=== PATIENT | female | born 1940 | race Caucasian/White ===

== ENCOUNTER → 2017-02-06 | Outpatient (CLI) | payer OTHER ==
[~2017-02-06] MED LIST: ALBUAER INH; ALBUAER2 INH; ARTISOL8 OP; BECL0.072 INH; CHOL100010 PO; CYAN10005 PO; LEVO50TA6 PO; OMEP40CA PO; QVRINH80 INH; SERT1TAB71 PO; SERT50TA PO; SIMV10TA2 PO; SIMV20TA2 PO; VITAMIN B12 PO; VITAMIN D PO
--- NOTE | 2017-02-06 14:29 | DIAGNOSTIC IMAGING REPORT ---
CHEST 2 VIEWS ROUTINE CLINICAL HISTORY: R05 [id number] dyspnea COMPARISON STUDY: 08/18/2015 FINDINGS: The bones soft tissues and hemidiaphragms are normal. The cardiomediastinal silhouette is normal. The lungs are clear. The pulmonary vasculature is normal. IMPRESSION: Negative chest. Electronically signed by: Kunal Tay M.D. 02/06/2017 2:27 PM Dictated Date/Time: 02/06/2017 2:27 PM
[2017-02-06 16:56] LABS: BASO % 0.4 %; BASO ABS # 0.04 K/uL (0-0.2); COMPLETE YES; EOS % 1.9 %; HEMATOCRIT 43.1 % (37-47); IG% 1.2 %; LYMPH ABS # 2.78 K/uL (1.2-3.4); MEAN CELL VOLUME 91.3 fL (80-100); MEAN CORPUSCULAR HEMOGLOBIN 31.6 pg (25-34); MEAN CORPUSCULAR HGB CONC 34.6 g/dl (32-36); MEAN PLATELET VOLUME 10.8 fL (7.4-10.4); MONO % 7.5 %; PLATELET COUNT 188 K/uL (130-400); RED BLOOD COUNT 4.72 M/uL (4.2-5.4); WHITE BLOOD COUNT 9.93 K/uL (4.8-10.8)
[2017-02-06 17:14] LABS: ALT/SGPT 26 U/L (12-78); BLOOD UREA NITROGEN 13 mg/dl (7-18); BUN/CREATININE RATIO 16.3 (10-20); CALCIUM 8.6 mg/dl (8.5-10.1); CARBON DIOXIDE 29 mmol/L (21-32); CHLORIDE 105 mmol/L (98-107); GLUCOSE 86 mg/dl (70-99); SODIUM 139 mmol/L (136-145)
[2017-02-06 17:16] LABS: ALB/GLOB RATIO 1.2 (0.9-2); ALKALINE PHOSPHATASE 90 U/L (45-117); AST/SGOT 20 U/L (15-37)
== END | disposition home or self-care (01) ==
LOC: C.RADBC 14:02
PROVIDERS: ATTEND Internal Medicine
DX: R05 Cough (principal); E78.5 Hyperlipidemia, unspecified

== ENCOUNTER → 2017-07-21 | Outpatient (CLI) | payer OTHER | END | disposition home or self-care (01) | LOC: C.LAB 12:41 | PROVIDERS: ATTEND Family Medicine | DX: R53.81 Other malaise (principal); R53.83 Other fatigue ==

== ENCOUNTER → 2017-08-07 | Outpatient (CLI) | payer OTHER ==
[~2017-08-07] MED LIST changes: -ALBUAER INH; -QVRINH80 INH; -SERT50TA PO; -SIMV20TA2 PO; -VITAMIN B12 PO; -VITAMIN D PO
[2017-08-07 17:05] LABS: ALT/SGPT 28 U/L (12-78); AST/SGOT 16 U/L (15-37); BLOOD UREA NITROGEN 16 mg/dl (7-18); BUN/CREATININE RATIO 20.6 (10-20); CALCIUM 8.8 mg/dl (8.5-10.1); CARBON DIOXIDE 27 mmol/L (21-32); CHLORIDE 109 mmol/L (98-107); CREATININE 0.79 mg/dl (0.60-1.20); GLUCOSE 91 mg/dl (70-99); POTASSIUM 4.5 mmol/L (3.5-5.1); SODIUM 141 mmol/L (136-145)
[2017-08-07 17:16] LABS: ALB/GLOB RATIO 1.2 (0.9-2); ALKALINE PHOSPHATASE 78 U/L (45-117); CHOLESTEROL 223 mg/dl (0-200); CHOLESTEROL/HDL RATIO 3.2; HDL CHOLESTEROL 70 mg/dl; LDL CHOLESTEROL CALCULATED 122 mg/dl; TRIGLYCERIDES 155 mg/dl (0-150); VERY LOW DENSITY LIPOPROT CALC 31 mg/dl
== END | disposition home or self-care (01) ==
LOC: C.LABBC 14:28
PROVIDERS: ATTEND Internal Medicine
DX: G47.33 Obstructive sleep apnea (adult) (pediatric) (principal)

== ENCOUNTER → 2017-10-07 | Outpatient (CLI) | payer OTHER ==
[~2017-10-07] MED LIST changes: +ALBUAER INH; -ALBUAER2 INH; -ARTISOL8 OP; -BECL0.072 INH; -CHOL100010 PO; -CYAN10005 PO; -OMEP40CA PO; +QVRINH80 INH; -SERT1TAB71 PO; +SERT50TA PO; -SIMV10TA2 PO; +SIMV20TA2 PO; +VITAMIN B12 PO; +VITAMIN D PO
--- NOTE | 2017-10-07 10:52 | DIAGNOSTIC IMAGING REPORT ---
ULTRASOUND BILATERAL LOWER EXTREMITY VENOUS CLINICAL HISTORY: Varicose veins. COMPARISON STUDY: Left lower extremity venous ultrasound dated 03/10/2016. TECHNIQUE: Real-time, grayscale, and color Doppler sonography of the deep veins of the right and left lower extremity was performed from the inguinal crease to the calf. Compression and augmentation were utilized. FINDINGS: There is no sonographic evidence of deep venous thrombosis identified in the right or left lower extremity. The common femoral, superficial femoral, and popliteal veins are patent and normally compressible bilaterally. The greater saphenous vein and the profunda femoris vein at the junction with the common femoral vein are clear in both legs. The visualized calf veins are patent bilaterally. Reflux is noted in the right greater saphenous vein. No reflux was seen in the left lower extremity. No abnormality is seen in the lateral right ankle at the site of interest. IMPRESSION: There is no sonographic evidence of deep venous thrombosis identified in the right or left lower extremity. Electronically signed by: Yobany Cottrell M.D. 10/07/2017 10:51 AM Dictated Date/Time: 10/07/2017 10:50 AM
== END | disposition home or self-care (01) ==
LOC: C.ULTR 09:53
PROVIDERS: ATTEND Nurse Practitioner Adult Health
DX: I83.90 Asymptomatic varicose veins of unspecified lower extremity (principal)

== ENCOUNTER → 2017-12-01 | Outpatient (CLI) | payer OTHER | END | disposition home or self-care (01) | LOC: C.LABBC 14:49 | PROVIDERS: ATTEND Internal Medicine | DX: R39.9 Unspecified symptoms and signs involving the genitourinary system (principal) ==

== ENCOUNTER → 2018-01-01 | Day surgery (SDC) | payer OTHER ==
[2017-12-19 08:50] VITALS: BMI 34.0
[~2018-01-01] VITALS: Ht 152.4 cm; Wt 79.5 kg
[~2018-01-01] MED LIST changes: +ASPCH81X PO; +LIDOCAINE HCL 2% 2 ML VIAL (20MG/ML) ONE; +PHENYLEPHRINE HCL INJ 10 MG/ML VIAL ONE; +PROPOFOL IV EMULSION 10 MG/ML 20 ML VIAL IV ONE; +SODIUM CHLORIDE 0.9% 500ML 500 ML IV ONE
[2018-01-01 13:10] VITALS: TEMP 36.5
[2018-01-01 13:11] VITALS: Ht 152.4 cm; Wt 79.5 kg
--- NOTE | 2018-01-01 13:15 | Endo History and Physical ---
History & Physical Date of Service: Jan 01, 2018. Chief Complaint: Change in bowel habits Referring Physician: Dr. Mulugeta Cruz History of Present Illness 77 yo CF who presents for colonoscopy secondary to change in bowel habits. Past Medical History Arthritis, Asthma, Anxiety, Reflux, High Cholesterol, COPD, Thyroid Disease, Depression Past Surgical History Hx Cardiac Surgery: No Hx Internal Defibrillator: No Hx Pacemaker: No Hx Abdominal Surgery: Yes () Hx Post-Op Nausea and Vomiting: No Hx Cancer Surgery: No Hx Thoracic Surgery: No Hx Orthopedic: Yes (LUMBAR LAMINECTOMY) Hx Urinary Tract Surgery: No Family History Polyp Social History Smoking Status: Former Smoker Hx Substance Use: No Hx Alcohol Use: No Allergies Coded Allergies: Sulfa Drugs (Verified Allergy, Severe, HIVES, SWELLING, 08/18/17) Atorvastatin (Verified Allergy, Intermediate, REDNESS,ITCHY RASH, 08/18/17 ) Azithromycin (Verified Allergy, Intermediate, REDNESS, HEART RACING, 08/18) BEE STING (Verified Allergy, Intermediate, WHEEZING,ITCHY EYES, REDNESS, 08/18/17) Doxycycline (Verified Allergy, Intermediate, REDMITCHY HIVES, THROAT SWELLS, 08/18/17) Niacin (Verified Allergy, Intermediate, UNKNOWN TO PT-REDNESS?, 08/18/17) Terfenadine (Verified Allergy, Intermediate, HEART PALPITATIONS, 08/18/17) Aromatic Oils (Verified Allergy, Unknown, ANY MAKE-UP,PERFUMES, COSMETICS- ITCHY EYES,WHEEZING, 08/18/17) ANY SCENTED PRODUCTS INCL FIELD ARTILLERY OPERATIONS MAN,WILCOX POLLEN (Verified Allergy, Unknown, POLLEN,TREES, DUST MITES-ITCHY EYES WHEEZING, 08/18/17) Propofol (Verified Allergy, Unknown, LOW BP,"WENT OUT"-BLACKED OUT, ) Current Medications Reported Home Medications Medications Dose Route/Sig Max Daily Dose Days Date Category Aspirin Chewable (Aspirin) 81 Mg Chew 81 Mg PO HS 12/19/17 Reported Proventil Hfa (Albuterol Sulfate) 108 Mcg/Act Aer 2 Puff INH Q4H PRN 08/18/17 Reported Qvar (Beclomethasone Dip) 80 Mcg/Act Aer 2 Puff INH BID 08/18/17 Reported Zocor (Simvastatin) 20 Mg Tab 20 Mg PO QPM 08/18/17 Reported Levothyroxine Sodium 50 Mcg Tab 1 Tab PO QAM 90 08/18/17 Reported [Vitamin B12] 1 Tab PO QAM 08/18/17 Reported [Vitamin D] 1 Tab PO QAM 08/18/17 Reported Zoloft (Sertraline HCl) 50 Mg Tab 50 Mg PO HS 08/18/17 Reported Vital Signs Weight (Kilograms): 79.55 Height (Feet): 5 Height (Inches): 0 Date Time Temp Pulse Resp B/P (MAP) Pulse Ox O2 Delivery O2 Flow Rate FiO2 01/01/18 13:10 36.5 71 18 151/77 (101) 96 Room Air Physical Exam General Appearance: WD/WN, no apparent distress Respiratory/Chest: Auscultation: breath sounds normal Cardiovascular: Heart Auscultation: RRR Abdomen: Bowel Sounds: normal Inspection & Palpation: soft, non-distended, no tenderness, guarding & rebound Assessment and Plan Assessment: 77 yo CF who presents for colonoscopy secondary to change in bowel habits. Plan: Proceed with colonoscopy.
--- NOTE | 2018-01-01 13:51 | Discharge Instructions ---
Endoscopy Patient Instructions Date / Procedure(s) Performed Jan 01, 2018. Colonoscopy Allergy Information Coded Allergies: Sulfa Drugs (Verified Allergy, Severe, HIVES, SWELLING, 08/18/17) Atorvastatin (Verified Allergy, Intermediate, REDNESS,ITCHY RASH, 08/18/17 ) Azithromycin (Verified Allergy, Intermediate, REDNESS, HEART RACING, 08/18) BEE STING (Verified Allergy, Intermediate, WHEEZING,ITCHY EYES, REDNESS, 08/18/17) Doxycycline (Verified Allergy, Intermediate, REDMITCHY HIVES, THROAT SWELLS, 08/18/17) Niacin (Verified Allergy, Intermediate, UNKNOWN TO PT-REDNESS?, 08/18/17) Terfenadine (Verified Allergy, Intermediate, HEART PALPITATIONS, 08/18/17) Aromatic Oils (Verified Allergy, Unknown, ANY MAKE-UP,PERFUMES, COSMETICS- ITCHY EYES,WHEEZING, 08/18/17) ANY SCENTED PRODUCTS INCL ED TEACHER,WILCOX POLLEN (Verified Allergy, Unknown, POLLEN,TREES, DUST MITES-ITCHY EYES WHEEZING, 08/18/17) Propofol (Verified Allergy, Unknown, LOW BP,"WENT OUT"-BLACKED OUT, ) Discharge Date / Findings Jan 01, 2018. Diverticulosis Internal hemorrhoids Medication Instructions Stopped Medication(s): ASPIRIN LAST DOSE 12/30/17 OK to resume all medications today as prescribed Reported Home Medications Medications Dose Route/Sig Max Daily Dose Days Date Category Aspirin Chewable (Aspirin) 81 Mg Chew 81 Mg PO HS 12/19/17 Reported Proventil Hfa (Albuterol Sulfate) 108 Mcg/Act Aer 2 Puff INH Q4H PRN 08/18/17 Reported Qvar (Beclomethasone Dip) 80 Mcg/Act Aer 2 Puff INH BID 08/18/17 Reported Zocor (Simvastatin) 20 Mg Tab 20 Mg PO QPM 08/18/17 Reported Levothyroxine Sodium 50 Mcg Tab 1 Tab PO QAM 90 08/18/17 Reported [Vitamin B12] 1 Tab PO QAM 08/18/17 Reported [Vitamin D] 1 Tab PO QAM 08/18/17 Reported Zoloft (Sertraline HCl) 50 Mg Tab 50 Mg PO HS 08/18/17 Reported Provider Instructions Activity Restrictions - No exercising or heavy lifting for 24 hours. - Do not drink alcohol the day of the procedure. - Do not drive a car or operate machinery until the day after the procedure. - Do not make any important decisions or sign important papers in 24 hours after the procedure. Following Day: - Return to full activity which may include returning to work/school. Diet Start your diet with liquids and light foods (jello, soup, juice, toast). Then eat your usual diet if not nauseated. Treatment For Common After Affects For mild abdominal pain, bloating, or excessive gas: - Rest - Eat lightly - Lie on right side Follow-Up Information Follow-up with DR MOHINDER PEDROZA as scheduled Anesthesia Information What You Should Know You have had a procedure that required some medicine to reduce anxiety and discomfort. This treatment is called moderate sedation. After receiving the treatment, you may be sleepy, but you will be able to breathe on your own. The effects of the treatment may last for several hours. Follow these instructions along with Activity/Diet recommendations noted above: * Do NOT do anything where dizziness or clumsiness would be dangerous. * Rest quietly at home today, then you can be up and about tomorrow. * Have a responsible person stay with you the rest of today. * You may have had an I.V. today. If so, you may take the dressing off later today. Recommendations Call your doctor if: * Trouble breathing * Continuous vomiting for more than 24 hours * Temperature above 101 degrees * Severe abdominal pain or bloating * Pain not relieved by pain medicine ordered * There is increased drainage or redness from any incision * A large amount of rectal bleeding greater than 2-3 tablespoons. (If you had a polyp/s removed or have hemorrhoids, a small amount of blood - from the rectum is to be expected.) * You have any unanswered questions or concerns. IN THE EVENT OF A SERIOUS EMERGENCY, GO TO THE NEAREST EMERGENCY ROOM Your discharge instructions were prepared by provider Jose Yap. Patient Instructions Signature Page Olivia Mckeon Patient (or Guardian) Signature/Date: I have read and understand the instructions given to me by my caregivers. Caregiver/RN/Doctor Signature/Date: The above-named patient and/or guardian has received patient instructions on this date. + Original Patient Signature Page (only) stays with chart. Please make copy for patient.
[2018-01-01 14:11] VITALS: BP 132/77; PULSE 59; O2SAT 95
--- NOTE | 2018-01-01 14:17 | GI REPORT ---
Procedure Date: 01/01/2018 1:09 PM Procedure: Colonoscopy Indications: Screening for colorectal malignant neoplasm Medicines: Monitored Anesthesia Care Complications: No immediate complications. Estimated Blood Loss: Estimated blood loss: none. Procedure: Pre-Anesthesia Assessment: - Prior to the procedure, a History and Physical was performed, and patient medications and allergies were reviewed. The patient's tolerance of previous anesthesia was also reviewed. The risks and benefits of the procedure and the sedation options and risks were discussed with the patient. All questions were answered, and informed consent was obtained. Prior Anticoagulants: The patient has taken aspirin, last dose was 2 days prior to procedure. ASA Grade Assessment: III - A patient with severe systemic disease. After reviewing the risks and benefits, the patient was deemed in satisfactory condition to undergo the procedure. After I obtained informed consent, the scope was passed under direct vision. Throughout the procedure, the patient's blood pressure, pulse, and oxygen saturations were monitored continuously. The On-site loaner was introduced through the anus and advanced to the terminal ileum. The colonoscopy was performed without difficulty. The patient tolerated the procedure well. The quality of the bowel preparation was good. The terminal ileum, ileocecal valve, appendiceal orifice, and rectum were photographed. Findings: The perianal and digital rectal examinations were normal. Multiple small-mouthed diverticula were found in the sigmoid colon. Non-bleeding internal hemorrhoids were found during retroflexion. The hemorrhoids were small. Impression: - Diverticulosis in the sigmoid colon. - Non-bleeding internal hemorrhoids. - No specimens collected. Recommendation: - Resume previous diet. - Continue present medications. - No repeat colonoscopy due to age and the absence of advanced adenomas. - Return to primary care physician as previously scheduled. Jose Yap DO 01/01/2018 2:17:31 PM This report has been signed electronically. Note Initiated On: 01/01/2018 1:09 PM I attest to the content of the Intraoperative Record and orders documented therein, exceptions below
--- NOTE | 2018-01-01 14:21 | Anesthesiology Progress Note ---
Anesthesia Post Op Note Date & Time Jan 01, 2018 at 14:21 Vital Signs Pain Intensity: 0 Vital Signs Past 12 Hours Date Time Temp Pulse Resp B/P (MAP) Pulse Ox O2 Delivery O2 Flow Rate FiO2 01/01/18 14:11 59 18 132/77 (95) 95 Room Air 01/01/18 14:02 72 18 115/67 (83) 96 Room Air 01/01/18 13:54 61 18 135/67 (89) 95 Room Air 01/01/18 13:49 65 18 105/45 (65) 96 Room Air 01/01/18 13:10 36.5 71 18 151/77 (101) 96 Room Air Notes Mental Status: alert / awake / arousable, participated in evaluation Pt Amnestic to Procedure: Yes Nausea / Vomiting: adequately controlled Pain: adequately controlled Airway Patency, RR, SpO2: stable & adequate BP & HR: stable & adequate Hydration State: stable & adequate Anesthetic Complications: no major complications apparent
== END | disposition home or self-care (01) ==
LOC: C.GI 12:47
PROVIDERS: ATTEND Internal Medicine
DX: Z12.11 Encounter for screening for malignant neoplasm of colon (principal); K57.30 Diverticulosis of large intestine without perforation or abscess without bleeding; K64.8 Other hemorrhoids; J44.9 Chronic obstructive pulmonary disease, unspecified; J45.909 Unspecified asthma, uncomplicated; G47.33 Obstructive sleep apnea (adult) (pediatric); E78.00 Pure hypercholesterolemia, unspecified; F32.9 Major depressive disorder, single episode, unspecified; Z98.890 Other specified postprocedural states; Z68.34 Body mass index [BMI] 34.0-34.9, adult; E66.9 Obesity, unspecified; Z88.2 Allergy status to sulfonamides; Z88.1 Allergy status to other antibiotic agents; Z88.8 Allergy status to other drugs, medicaments and biological substances; Z91.030 Bee allergy status; Z98.41 Cataract extraction status, right eye; Z98.42 Cataract extraction status, left eye; Z87.891 Personal history of nicotine dependence; Z83.71 Family history of colonic polyps

== ENCOUNTER → 2018-02-12 | Outpatient (CLI) | payer OTHER ==
[~2018-02-12] MED LIST changes: -LIDOCAINE HCL 2% 2 ML VIAL (20MG/ML) ONE; -PHENYLEPHRINE HCL INJ 10 MG/ML VIAL ONE; -PROPOFOL IV EMULSION 10 MG/ML 20 ML VIAL IV ONE; -SODIUM CHLORIDE 0.9% 500ML 500 ML IV ONE
[2018-02-12 09:40] LABS: BASO % 0.5 %; BASO ABS # 0.04 K/uL (0-0.2); EOS % 3.2 %; EOS ABS # 0.25 K/uL (0-0.5); HEMATOCRIT 43.2 % (37-47); HEMOGLOBIN 14.9 g/dL (12.0-16.0); IG# 0.06 K/uL (0.00-0.02); LYMPH % 37.6 %; LYMPH ABS # 2.94 K/uL (1.2-3.4); MEAN CELL VOLUME 94.5 fL (80-100); MEAN CORPUSCULAR HEMOGLOBIN 32.6 pg (25-34); MEAN CORPUSCULAR HGB CONC 34.5 g/dl (32-36); MEAN PLATELET VOLUME 10.1 fL (7.4-10.4); MONO % 7.4 %; MONO ABS # 0.58 K/uL (0.11-0.59); NEUT % 50.5 %; NEUT ABS # 3.95 K/uL (1.4-6.5); PLATELET COUNT 175 K/uL (130-400); RED CELL DISTRIBUTION WIDTH CV 13.3 % (11.5-14.5); WHITE BLOOD COUNT 7.82 K/uL (4.8-10.8)
[2018-02-12 10:26] LABS: ALBUMIN 3.7 gm/dl (3.4-5.0); ALT/SGPT 29 U/L (12-78); AST/SGOT 19 U/L (15-37); BLOOD UREA NITROGEN 20 mg/dl (7-18); CALCIUM 8.9 mg/dl (8.5-10.1); CARBON DIOXIDE 29 mmol/L (21-32); CREATININE 1.13 mg/dl (0.60-1.20); GLUCOSE 101 mg/dl (70-99); POTASSIUM 4.5 mmol/L (3.5-5.1); SODIUM 140 mmol/L (136-145)
[2018-02-12 10:37] LABS: ALKALINE PHOSPHATASE 72 U/L (45-117); TOTAL PROTEIN 6.8 gm/dl (6.4-8.2)
== END | disposition home or self-care (01) ==
LOC: C.LAB 08:26
PROVIDERS: ATTEND Internal Medicine
DX: G47.33 Obstructive sleep apnea (adult) (pediatric) (principal)

== ENCOUNTER → 2018-02-12 | Outpatient (CLI) | payer OTHER | END | disposition home or self-care (01) | LOC: C.LABBC 14:52 | PROVIDERS: ATTEND Internal Medicine | DX: R51 Headache (principal) ==

== ENCOUNTER 2022-02-11 13:33 | Inpatient (IN) ==
[2022-02-11] MEDS ORDERED: ONDANSETRON INJ 2 MG/ML 2 ML VIAL ONE (13:39)
[2022-02-11] MEDS ORDERED: SODIUM CHLORIDE 0.9% 1000ML 1,000 ML IV STA (13:44)
[2022-02-11] MEDS ORDERED: ONDANSETRON INJ 2 MG/ML 2 ML VIAL IV STA (13:44)
[2022-02-11] MEDS ORDERED: LOPERAMIDE LIQUID 120 ML BOTTLE PO STA (13:44)
--- NOTE | 2022-02-11 13:48 | Emergency Department Note ---
History of Present Illness General Chief complaint: Vomiting Stated complaint: VOMITING Time Seen by Provider: 02/11/22 13:34 History of Present Illness Maximum Pain Intensity: [age]-year-old female presents to the ED with a chief complaint of nausea, vomiting and diarrhea that started 3 days ago. 3 days ago she had diarrhea. She then developed nausea vomiting this morning. She states the last episode of each was this morning. She reports some epigastric discomfort prior to vomiting but otherwise denies any abdominal pains. She has had decreased p.o. intake over the past couple of days. No other complaints at this time. She has not had a fever. No respiratory complaints. No urinary symptoms Home Medications Medication Instructions Recorded Confirmed Type albuterol sulfate 90 mcg/actuation 2 puffs INHALATION Q4H PRN #1 gm 06/08/19 02/11/22 History aerosol inhaler cyanocobalamin (vitamin B-12) 1,000 mcg PO DAILY #90 tab 06/08/19 02/11/22 History 1,000 mcg tablet simvastatin 20 mg tablet 20 mg PO DAILY #90 tab 01/31/20 02/11/22 Rx beclomethasone dipropionate 80 2 inh INHALATION BID 09/02/20 02/11/22 History mcg/actuation HFA breath activated aerosol (Qvar RediHaler) cholecalciferol (vitamin D3) 25 25 mcg PO DAILY 09/02/20 02/11/22 History mcg (1,000 unit) chewable tablet (Vitamin D3) docusate sodium 100 mg capsule 100 mg PO BID 09/02/20 02/11/22 History (Colace) glycerin (adult) 1 supp [place] DAILY PRN 09/02/20 02/11/22 History levothyroxine 75 mcg tablet 75 mcg PO DAILY 09/02/20 02/11/22 History omeprazole 20 mg capsule,delayed 40 mg PO HS 09/02/20 02/11/22 History release psyllium 1 packet PO DAILY 09/02/20 02/11/22 History sertraline 50 mg tablet 50 mg PO BID 09/02/20 02/11/22 History atenolol 25 mg tablet 25 mg PO HS 06/08/21 02/11/22 History sodium sul 1.479 gram-potas ch See Rx Instructions .ROUTE 06/15/21 02/11/22 Rx 0.188 gram-magnes sul 0.225 gram .COMPLEX #24 tab tablet (Sutab) ondansetron 4 mg disintegrating 4 mg PO Q6 PRN #14 tab 02/11/22 Rx tablet Allergies Allergy/AdvReac Type Severity Reaction Status Date / Time Sulfa (Sulfonamide Allergy Severe HIVES, Verified 02/11/22 15:09 Antibiotics) SWELLING atorvastatin Allergy Intermediate REDNESS,ITCHY Verified 02/11/22 15:09 RASH azithromycin Allergy Intermediate Redness of Verified 02/11/22 15:09 Skin, heart racing bee venom protein (honey bee) Allergy Intermediate WHEEZING,ITCHY Verified 02/11/22 15:09 EYES, REDNESS doxycycline Allergy Intermediate REDMITCHY Verified 02/11/22 15:09 HIVES, THROAT SWELLS niacin Allergy Intermediate UNKNOWN TO Verified 02/11/22 15:09 PT-REDNESS? pollen extracts Allergy Intermediate POLLEN,TREES, Verified 02/11/22 15:09 DUST MITES-ITCHY EYES WHEEZING propofol Allergy Intermediate LOW Verified 02/11/22 15:09 BP,"WENT OUT"-BLACKED OUT terfenadine Allergy Intermediate HEART Verified 02/11/22 15:09 PALPITATIONS lisinopril Allergy Unknown PT STATES Verified 02/11/22 15:09 "ALLERGIC" ranitidine AdvReac Intermediate headache Verified 02/11/22 15:09 sulfamethoxazole AdvReac Intermediate GI UPSET Verified 02/11/22 15:09 [From Bactrim] trimethoprim [From Bactrim] AdvReac Intermediate GI UPSET Verified 02/11/22 15:09 Aromatic Oils Allergy Intermediate ANY Uncoded 02/11/22 15:09 MAKE-UP,PERFUMES, COSMETICS-ITCHY EYES,WHEEZING Past Med/Surg History Medical History Anemia Chest pain Closed head injury Fall GERD (gastroesophageal reflux disease) Hypothyroidism IBS (irritable bowel syndrome) Left wrist sprain Lumbar stenosis with neurogenic claudication Rectal bleeding Surgical History History of eye surgery History of oral surgery Family History (Updated 07/13/21 @ 14:35 by Macie Brantley) Unknown Gastric cancer Schizophrenia Sister Crohn's disease Brother Schizophrenia Lung cancer Son Myocardial infarction Daughter Breast cancer Mother Myocardial infarction Cancer Father Lung cancer Cancer Grandmother (Maternal) Heart trouble Aunt Convulsion Social History Smoking Status: Never smoker Preferred Language: Turkmen Feels Safe at Home: Yes Review of Systems A total of 10 systems reviewed and were otherwise negative Physical Exam Vital Signs Vital Signs - 24 hr 02/11/22 13:39 02/11/22 13:51 02/11/22 14:50 Temperature 37.6 C H Temperature Source Oral Pulse Rate 74 Pulse Rate [Apical] Respiratory Rate 15 Respiratory Effort / Characteristics Blood Pressure 166/93 H Blood Pressure [Left Arm] 162/81 H Blood Pressure Mean 117 Blood Pressure Mean [Left Arm] 108 Pulse Oximetry 92 92 Oxygen Delivery Method Room Air Room Air Sepsis Recent Fever Within 48 Hours No Sepsis New/Unexplained Change in Mental Status N/A Sepsis Action Taken by Nursing No Action Required 02/11/22 15:11 Temperature Temperature Source Pulse Rate Pulse Rate [Apical] 78 Respiratory Rate 16 Respiratory Effort / Characteristics Non-Labored Blood Pressure Blood Pressure [Left Arm] 149/68 H Blood Pressure Mean Blood Pressure Mean [Left Arm] 95 Pulse Oximetry 93 Oxygen Delivery Method Room Air Sepsis Recent Fever Within 48 Hours Sepsis New/Unexplained Change in Mental Status Sepsis Action Taken by Nursing CONSTITUTIONAL/VITAL SIGNS: Reviewed / noted above. GENERAL: Non-toxic in appearance. INTEGUMENTARY: Warm, dry, and [place]. HEAD: Normocephalic. EYES: without scleral icterus or trauma. ENT/OROPHARYNX: clear and moist. LYMPHADENOPATHY/NECK: Is supple without lymphadenopathy or meningismus. RESPIRATORY: Clear to auscultation bilaterally. No increased work of breathing. CARDIOVASCULAR: Regular rate and rhythm. GI/ABDOMEN: Soft and nontender. No organomegaly or pulsatile mass. EXTREMITIES: Warm and well perfused. BACK: No CVA tenderness. NEUROLOGICAL: Intact without focal deficits. PSYCHIATRIC: normal affect. MUSCULOSKELETAL: Normally developed with good muscle tone. TRIAGE NURSING DOCUMENTATION REVIEWED. Course Administered Medications Discontinued Medications Sodium Chloride (Nss 1000ml) 1,000 mls @ 999 mls/hr IV .Q1H1M STA Stop: 02/11/22 14:44 Last Infusion: 02/11/22 14:51 Dose: 0 mls/hr Documented by: [id number] Admin: 02/11/22 13:50 Dose: 999 mls/hr Documented by: [id number] Loperamide HCl (Loperamide Liquid 120 Ml Bottle) 2 mg PO NOW STA Stop: 02/11/22 13:45 Last Admin: 02/11/22 13:57 Dose: 2 mg Documented by: [id number] Ondansetron HCl (Ondansetron Inj 2 Mg/Ml 2 Ml Vial) Confirm Administered Dose 4 mg .ROUTE .STK-MED ONE Stop: 02/11/22 13:40 Last Admin: 02/11/22 13:42 Dose: 4 mg Documented by: [id number] Ondansetron HCl (Ondansetron Inj 2 Mg/Ml 2 Ml Vial) 4 mg IV NOW STA Stop: 02/11/22 13:45 Last Admin: 02/11/22 13:49 Dose: Not Given Documented by: [id number] Medical Decision Making Differential Diagnosis Gastroenteritis, food borne illness, infections, appendicitis, diverticulitis, inflammatory bowel disease, obstruction, GI bleed, biliary pathology, volvulus, as well as other pathologies. Medical Records Attestation: I reviewed the patient's medical records. Home Medications Current Medication List: was personally reviewed by me Laboratory Data Attestation: I reviewed the patient's lab results. Result diagrams: 02/11/22 13:45 02/11/22 13:45 Lab Results 02/11/22 02/11/22 Range/Units 13:45 13:45 WBC 9.13 (4.8-10.8) K/uL RBC 4.71 (4.2-5.4) M/uL Hgb 15.4 (12.0-16.0) g/dL Hct 44.0 (37-47) % MCV 93.4 (80-100) fL MCH 32.7 (25-34) pg MCHC 35.0 (32-36) g/dL RDW Std Deviation 43.3 (36.4-46.3) fL RDW Coeff of Saroj 12.7 (11.5-14.5) % Plt Count 163 (130-400) K/uL MPV 10.6 H (7.4-10.4) fL Immature Gran % (Auto) 0.4 % Neut % (Auto) 89.0 % Lymph % (Auto) 5.1 % Mcclain % (Auto) 4.6 % Eos % (Auto) 0.8 % Baso % (Auto) 0.1 % Neut # (Auto) 8.12 H (1.4-6.5) K/uL Lymph # (Auto) 0.47 L (1.2-3.4) K/uL Mcclain # (Auto) 0.42 (0.11-0.59) K/uL Eos # (Auto) 0.07 (0-0.5) K/uL Baso # (Auto) 0.01 (0-0.2) K/uL Immature Gran # (Auto) 0.04 H (0.00-0.02) K/uL Sodium 140 (136-145) mmol/L Potassium 3.7 (3.5-5.1) mmol/L Chloride 107 (98-107) mmol/L Carbon Dioxide 23 (21-32) mmol/L Anion Gap 10 (3-11) BUN 18 (6-23) mg/dl Creatinine 0.88 (0.6-1.2) mg/dl Est Cr Clr Drug Dosing 50.5 ml/min Est GFR ( Amer) 71.4 ml/min Est GFR (Non-Af Amer) 61.6 ml/min BUN/Creatinine Ratio 20.5 H (10-20) Glucose 139 H (70-99(Fasting)) mg/dl Calcium 9.2 (8.5-10.1) mg/dl Total Bilirubin 0.9 (0.2-1.0) mg/dl AST 18 (13-39) U/L ALT 17 (7-52) U/L Alkaline Phosphatase 69 (34-104) U/L Total Protein 7.0 (6.0-8.3) gm/dl Albumin 4.3 (3.4-5.0) gm/dl Globulin 2.7 (2.5-4.0) gm/dl Albumin/Globulin Ratio 1.6 (0.9-2) Lipase 32 (11-82) U/L ECG Data Attestation: I personally reviewed and interpreted this ECG as follows: Additional Comments: Lead EKG: Per my interpretation shows a normal sinus rhythm at a rate of 74. No ST elevation. No PVCs. Normal QTC. Chronic T wave inversions are chronic compared to an EKG dated 06/08/2021. MDM Narrative 81-year-old female presents with nausea, vomiting and diarrhea for the past several days. Details listed above. Vital signs are stable. Exam is unremarkable. The patient's CBC and chemistry panel is unremarkable. Lipase was negative. Twelve-lead EKG shows a normal sinus rhythm without acute change. The patient was treated with IV fluids. She was given IV Zofran and p.o. loperamide. She did have an episode of diarrhea here that was watery. The patient was told the results of the test. She states that she feels weak and does not feel comfortable going home. I will speak with the hospitalist about observing her overnight. Impression & Plan Nausea vomiting and diarrhea Discharge Plan Visit Data Chief Complaint: Vomiting Stated Complaint: VOMITING ED Provider: Vern August Discharge Problem: Nausea vomiting and diarrhea Forms Stand Alone Forms: My [facility], Virtual Emergency Department, Important Visit Information Prescriptions Prescriptions: New ondansetron 4 mg tablet,disintegrating 4 mg PO Q6 PRN (Reason: nausea and vomiting) Qty: 14 RF: 0 No Action simvastatin 20 mg tablet 20 mg PO DAILY Qty: 90 RF: 3 albuterol sulfate 90 mcg/actuation HFA aerosol inhaler 2 puffs inhalation Q4H PRN (Reason: cough,sob,wheezing) Qty: 1 RF: 0 cyanocobalamin (vitamin B-12) 1,000 mcg tablet 1,000 mcg PO DAILY Qty: 90 RF: 0 Sutab 1.479-0.188- 0.225 gram tablet See Rx Instructions .Route .COMPLEX Qty: 24 RF: 0 levothyroxine 75 mcg tablet 75 mcg PO DAILY RF: 0 omeprazole 20 mg capsule,delayed release(DR/EC) 40 mg PO HS RF: 0 sertraline 50 mg tablet 50 mg PO BID RF: 0 Metamucil Packet 1 packet PO DAILY RF: 0 docusate sodium [Colace] 100 mg Capsule 100 mg PO BID RF: 0 glycerin (adult) Suppository 1 supp [place] DAILY PRN (Reason: Constipation) RF: 0 cholecalciferol (vitamin D3) [Vitamin D3] 25 mcg (1,000 unit) Tablet,Chewable 25 mcg PO DAILY RF: 0 Qvar RediHaler 80 mcg/actuation HFA aerosol breath activated 2 inh INHALATION BID RF: 0 atenolol 25 mg tablet 25 mg PO HS RF: 0 Referrals Referrals: Alycia Terry, [Primary Care Provider] -
[2022-02-11 14:13] LABS: Basophils # (auto) 0.01 K/uL (0-0.2); Basophils % (auto) 0.1 %; Eosinophils # (auto) 0.07 K/uL (0-0.5); Eosinophils % (auto) 0.8 %; Hemoglobin 15.4 g/dL (12.0-16.0); Immature Granulocytes # (auto) 0.04 K/uL (0.00-0.02); Immature Granulocytes % (auto) 0.4 %; Lymphocytes # (auto) 0.47 K/uL (1.2-3.4); Lymphocytes % (auto) 5.1 %; Mean Corpuscular Hemoglobin 32.7 pg (25-34); Mean Corpuscular Volume 93.4 fL (80-100); Mean Platelet Volume 10.6 fL (7.4-10.4); Monocytes # (auto) 0.42 K/uL (0.11-0.59); Monocytes % (auto) 4.6 %; Neutrophils # (auto) 8.12 K/uL (1.4-6.5); Platelet Count 163 K/uL (130-400); RDW Coefficient of Variation 12.7 % (11.5-14.5); RDW Standard Deviation 43.3 fL (36.4-46.3); Red Blood Count 4.71 M/uL (4.2-5.4); White Blood Count 9.13 K/uL (4.8-10.8)
[2022-02-11 14:19] LABS: Albumin Globulin Ratio 1.6 (0.9-2); Albumin Level 4.3 gm/dl (3.4-5.0); BUN Creatinine Ratio 20.5 (10-20); Bilirubin,Total 0.9 mg/dl (0.2-1.0); Calcium 9.2 mg/dl (8.5-10.1); Creatinine Clr Calc Pharmacy 50.5 ml/min; Est GFR (African American) 71.4 ml/min; Est GFR (Non-African American) 61.6 ml/min; Globulin 2.7 gm/dl (2.5-4.0); Potassium 3.7 mmol/L (3.5-5.1)
--- NOTE | 2022-02-11 16:41 | History & Physical Report ---
Date of Service February 11, 2022 Assessment & Plan (1) Nausea vomiting and diarrhea: Plan: Patient is 81-year-old female with PMH HTN, dyslipidemia, hypothyroidism, depression, anxiety, asthma presented to ER with complaint of watery diarrhea x 3 days with 10 or more episodes daily. Today nausea and vomiting, upper abdominal discomfort relieved after vomiting. Reported chills and feeling hot today. In ER T: 37.8C, other vitals stable. No leukocytosis. No significant electrolyte abnormality. COVID-[address] abdomen pelvis: . No acute intra-abdominal or intrapelvic abnormality. No bowel obstruction or bowel wall thickening. Normal appendix. In ER given 1L NSS, zofran, loperamide N.p.o. for now as vomited in ER after ice chips IVF C. difficile, stool studies pending CBC, BMP in a.m. (2) Generalized weakness: Plan: Reports generalized weakness past 2 days started after diarrhea illness Rehydrate as above PT OT eval (3) HTN (hypertension): Plan: Continue atenolol (4) Hyperlipidemia: Plan: Continue simvastatin (5) Hypothyroidism: Plan: Continue levothyroxine (6) Asthma: Plan: No signs acute exacerbation Continue home inhalers (7) Depression with anxiety: Plan: Continue sertraline DVT Prophylaxis Lovenox SQ DNR/DNI as per discussion with pt Follows with Dr Terry for routine care Pt was seen and care coordinated with Dr Vidal. See addendum Admission and Anticipated Discharge Date Admission Date: I saw and examined the patient at bedside. I reviewed the chart and discussed the case with Otilia LEMON. In summary, this is a 81 year old female who presented to the ED with watery diarrhea for 3 days and nausea vomiting since this morning. Multiple episodes of diarrhea and vomiting. Mild abd pain, no blood. In the ED, afebrile. hemodynamically stable but dry. AAO, chest clear, heart sounds normal, abdomen benign, no edema. Had another diarrhea and vomiting in ED. Labs reviewed. CT A/P with no acute abnormality. Stool studies pending. Likely viral gastroenteritis, will admit for symptomatic management- continue IVF, antiemetics prn, follow up on stool studies. Consider imodium prn if infectious etiology ruled out. Rest per the note above. History of Present Illness Chief Complaint: N/V/D Primary Care Provider: Alycia Terry DO Patient is 81-year-old female with PMH HTN, dyslipidemia, hypothyroidism, depression, anxiety, asthma presented to ER with complaint of nausea vomiting diarrhea. Patient reports started with diarrhea 3 days ago. Reports 10 or more episodes of watery diarrhea daily for past 3 days. Today started with nausea and vomiting and reports vomited approximately 6 times prior to ER arrival. Patient states prior and during vomiting has upper abdominal discomfort that resolves after vomiting. Denies other abdominal pain. Today feeling hot and chills reports EMS reported T: 100.8F today. Patient reports feeling diffuse weakness past 2 days. Last ate chicken noodle soup yesterday afternoon. Reports tried ice chips in ER and caused nausea and vomited once. Patient lives alone. She denies any ill contacts, recent travel, recent antibiotic use. Denies diaphoresis, hematemesis, hematochezia, melena, JOLLY, dizziness, syncope, vision changes, neck pain, CP, SOB, orthopnea, palpitations, cough, sore throat, choking, otalgia, rhinorrhea, paresthesias, extremity edema, rashes, urinary symptoms. Allergies Allergy/AdvReac Type Severity Reaction Status Date / Time Sulfa (Sulfonamide Allergy Severe HIVES, Verified 02/11/22 15:09 Antibiotics) SWELLING atorvastatin Allergy Intermediate REDNESS,ITCHY Verified 02/11/22 15:09 RASH azithromycin Allergy Intermediate Redness of Verified 02/11/22 15:09 Skin, heart racing bee venom protein (honey bee) Allergy Intermediate WHEEZING,ITCHY Verified 02/11/22 15:09 EYES, REDNESS doxycycline Allergy Intermediate REDMITCHY Verified 02/11/22 15:09 HIVES, THROAT SWELLS niacin Allergy Intermediate UNKNOWN TO Verified 02/11/22 15:09 PT-REDNESS? pollen extracts Allergy Intermediate POLLEN,TREES, Verified 02/11/22 15:09 DUST MITES-ITCHY EYES WHEEZING propofol Allergy Intermediate LOW Verified 02/11/22 15:09 BP,"WENT OUT"-BLACKED OUT terfenadine Allergy Intermediate HEART Verified 02/11/22 15:09 PALPITATIONS lisinopril Allergy Unknown angioedema Verified 02/11/22 16:19 possibly related to lisinopril ranitidine AdvReac Intermediate headache Verified 02/11/22 15:09 sulfamethoxazole AdvReac Intermediate GI UPSET Verified 02/11/22 15:09 [From Bactrim] trimethoprim [From Bactrim] AdvReac Intermediate GI UPSET Verified 02/11/22 15:09 Aromatic Oils Allergy Intermediate ANY Uncoded 02/11/22 15:09 MAKE-UP,PERFUMES, COSMETICS-ITCHY EYES,WHEEZING Home Medications Medication Instructions Recorded Confirmed Type albuterol sulfate 90 mcg/actuation 2 puffs INHALATION Q4H PRN #1 gm 06/08/19 02/11/22 History aerosol inhaler cyanocobalamin (vitamin B-12) 1,000 mcg PO DAILY #90 tab 06/08/19 02/11/22 History 1,000 mcg tablet beclomethasone dipropionate 80 2 inh INHALATION BID 09/02/20 02/11/22 History mcg/actuation HFA breath activated aerosol (Qvar RediHaler) cholecalciferol (vitamin D3) 25 25 mcg PO DAILY 09/02/20 02/11/22 History mcg (1,000 unit) chewable tablet (Vitamin D3) docusate sodium 100 mg capsule 100 mg PO BID 09/02/20 02/11/22 History (Colace) glycerin (adult) 1 supp OK DAILY PRN 09/02/20 02/11/22 History levothyroxine 75 mcg tablet 75 mcg PO DAILY 09/02/20 02/11/22 History omeprazole 20 mg capsule,delayed 40 mg PO HS 09/02/20 02/11/22 History release psyllium 1 packet PO DAILY 09/02/20 02/11/22 History sertraline 50 mg tablet 50 mg PO BID 09/02/20 02/11/22 History atenolol 25 mg tablet 25 mg PO HS 06/08/21 02/11/22 History ondansetron 4 mg disintegrating 4 mg PO Q6 PRN #14 tab 02/11/22 Rx tablet simvastatin 20 mg tablet 20 mg PO HS 02/11/22 02/11/22 History Past Med/Surg History Medical History (Updated 02/11/22 @ 17:10 by Otilia Mittal PA-C) Anemia Chest pain Closed head injury Depression with anxiety Fall GERD (gastroesophageal reflux disease) HTN (hypertension) Hypothyroidism IBS (irritable bowel syndrome) Left wrist sprain Lumbar stenosis with neurogenic claudication Rectal bleeding Surgical History (Updated 02/11/22 @ 17:10 by Otilia Mittal PA-C) History of colonoscopy History of eye surgery History of oral surgery Family History (Updated 07/13/21 @ 14:35 by Macie Brantley) Unknown Gastric cancer Schizophrenia Sister Crohn's disease Brother Schizophrenia Lung cancer Son Myocardial infarction Daughter Breast cancer Mother Myocardial infarction Cancer Father Lung cancer Cancer Grandmother (Maternal) Heart trouble Aunt Convulsion Social History (Updated 02/11/22 @ 17:08 by Otilia Mittal PA-C) Smoking Status: Former smoker Hx Alcohol Use: No Hx Substance Use: No Preferred Language: Arabic Feels Safe at Home: Yes Review of Systems 2 Review of Systems: All systems reviewed & are unremarkable except as noted in HPI & below Physical Exam Physical Exam: General: no acute distress, overweight Head: normocephalic, atraumatic Eyes: PERRL, EOM's intact, conjunctiva non-injected, anicteric ENT: normal inspection external ears, nose, mucous membranes dry Neck: supple, trachea midline Lungs: clear, no respiratory distress, no wheezing/rhonchi/rales CV: RRR, no murmur, no pretibial edema Abd: protuberant, normal BS, soft, non-tender to palpation Ext: no cyanosis, no calf tenderness Neuro: A&O x 3, no focal deficits noted, normal affect Skin: warm, dry Results & Data Results & Data ([facility]) Vital Signs (Past 12 Hours) Vital Signs Temp Pulse Pulse Resp BP BP Pulse Ox 02/11/22 15:11 78 16 149/68 H 93 02/11/22 14:50 162/81 H 02/11/22 13:51 92 02/11/22 13:39 37.6 C H 74 15 166/93 H 92 Laboratory Results Short CBC 02/11/22 Range/Units 13:45 WBC 9.13 (4.8-10.8) K/uL Hgb 15.4 (12.0-16.0) g/dL Hct 44.0 (37-47) % Plt Count 163 (130-400) K/uL BMP 02/11/22 13:45 Sodium 140 Potassium 3.7 Chloride 107 Carbon Dioxide 23 BUN 18 Creatinine 0.88 Glucose 139 H Calcium 9.2 Liver Function 02/11/22 Range/Units 13:45 Total Bilirubin 0.9 (0.2-1.0) mg/dl AST 18 (13-39) U/L ALT 17 (7-52) U/L Alkaline Phosphatase 69 (34-104) U/L Albumin 4.3 (3.4-5.0) gm/dl Diagnostic Findings Abdomen/Pelvis CT 02/11/22 16:[address] WITHOUT CONTRAST CT DOSE: 727.74 mGy.cm HISTORY: Acute vomiting with diarrhea vomiting, diarrhea, abd pain TECHNIQUE: Multiaxial CT images of the abdomen and pelvis were performed without contrast. A dose lowering technique was utilized adhering to the principles of ALARA. COMPARISON STUDY: CT abdomen and pelvis 06/08/2021 FINDINGS: Pulmonary emphysema redemonstrated. There are a few solid subcentimeter bibasilar solid pulmonary nodules redemonstrated measuring up to 5 mm within the left lower lobe on image 32. These appear to be generally stable from prior. 7 mm fissural nodule of the left lung base is suggestive of a benign lymph node. There is no pneumatosis or pneumoperitoneum. Coronary artery calcifications. The spleen, pancreas, adrenal glands, bladder and liver appear unremarkable. Unremarkable right kidney. There are 2 cysts redemonstrated within the left kidney measuring up to 2.7 cm. No renal or ureteral calculi or hydronephrosis. Urinary bladder wall thickening with partial distention. The previously described 2.1 cm lesion within the right adnexum is not definitively seen. Atherosclerosis of the aorta without aneurysm. There is no lymphadenopathy. There is mild wall thickening of the distal stomach which is likely secondary to partial distention. No bowel obstruction or bowel wall thickening. Colonic diverticulosis without acute diverticulitis. Normal appendix. No ascites or mesenteric inflammation. Tiny fat filled periumbilical hernia, diastases 1.1 cm. Unremarkable soft tissues. Demineralized appearance the bones with degenerative changes of the spine, pelvis and hips. IMPRESSION: 1. No acute intra-abdominal or intrapelvic abnormality. 2. No bowel obstruction or bowel wall thickening. Normal appendix. 3. Colonic diverticulosis without acute diverticulitis. 4. Pulmonary emphysema. 5. Stable subcentimeter bibasilar solid pulmonary nodules. 6. Additional findings as above. ACT 112: Negative or not required by law. The above report was generated using voice recognition software. It may contain grammatical, syntax or spelling errors. Electronically signed by: Baudilio Ortiz M.D. 02/11/2022 5:40 PM Code Status & VTE Plan VTE Prophylaxis Plan VTE Prophylaxis will be ordered: Yes (1) Hyperlipidemia Hyperlipidemia type: mixed hyperlipidemia Qualified Code(s): E78.2 - Mixed hyperlipidemia (2) Hypothyroidism Hypothyroidism type: acquired Qualified Code(s): E03.9 - Hypothyroidism, unspecified (3) Asthma Asthma complication type: unspecified Asthma persistence: unspecified Asthma severity: moderate Qualified Code(s): J45.909 - Unspecified asthma, uncomplicated
--- NOTE | 2022-02-11 17:42 | CT Scan Report ---
ABDOMEN AND PELVIS CT WITHOUT CONTRAST CT DOSE: 727.74 mGy.cm HISTORY: Acute vomiting with diarrhea vomiting, diarrhea, abd pain TECHNIQUE: Multiaxial CT images of the abdomen and pelvis were performed without contrast. A dose lo wering technique was utilized adhering to the principles of ALARA. COMPARISON STUDY: CT abdomen and pelvis 06/08/2021 FINDINGS: Pulmonary emphysema redemonstrated. There are a few solid subcentimeter bibasilar solid pul monary nodules redemonstrated measuring up to 5 mm within the left lower lobe on image 32. These appe ar to be generally stable from prior. 7 mm fissural nodule of the left lung base is suggestive of a b enign lymph node. There is no pneumatosis or pneumoperitoneum. Coronary artery calcifications. The sp meg, pancreas, adrenal glands, bladder and liver appear unremarkable. Unremarkable right kidney. There are 2 cysts redemonstrated within the left kidney measuring up to 2. 7 cm. No renal or ureteral calculi or hydronephrosis. Urinary bladder wall thickening with partial di stention. The previously described 2.1 cm lesion within the right adnexum is not definitively seen. A therosclerosis of the aorta without aneurysm. There is no lymphadenopathy. There is mild wall thickening of the distal stomach which is likely secondary to partial distention. No bowel obstruction or bowel wall thickening. Colonic diverticulosis without acute diverticulitis. N ormal appendix. No ascites or mesenteric inflammation. Tiny fat filled periumbilical hernia, diastase s 1.1 cm. Unremarkable soft tissues. Demineralized appearance the bones with degenerative changes of the spine, pelvis and hips. IMPRESSION: 1. No acute intra-abdominal or intrapelvic abnormality. 2. No bowel obstruction or bowel wall thickening. Normal appendix. 3. Colonic diverticulosis without acute diverticulitis. 4. Pulmonary emphysema. 5. Stable subcentimeter bibasilar solid pulmonary nodules. 6. Additional findings as above. ACT 112: Negative or not required by law. The above report was generated using voice recognition software. It may contain grammatical, syntax o r spelling errors. Electronically signed by: Baudilio Ortiz M.D. 02/11/2022 5:40 PM
[2022-02-11] MEDS ORDERED: ACETAMINOPHEN 325 MG TAB PO PRN (20:00)
[2022-02-11] MEDS ORDERED: ALBUTEROL HFA 8 GM INHALER INH PRN (20:00)
[2022-02-11] MEDS ORDERED: ONDANSETRON INJ 2 MG/ML 2 ML VIAL IV PRN (20:00)
[2022-02-11] MEDS: SODIUM CHLORIDE 0.9% 1000ML 1,000 ML IV SCH (20:21)
[2022-02-11] MEDS: ENOXAPARIN INJ 40 MG/0.4 ML SYR SQ SCH (20:53)
[2022-02-11] MEDS: FLUTICASONE FUROATE 200MCG 14 PUFFS/INHALER INH SCH (20:55)
[2022-02-11] MEDS: SIMVASTATIN 20 MG TAB PO SCH (20:56)
[2022-02-11] MEDS: PANTOprazole 40 MG TAB PO SCH (20:56)
[2022-02-11] MEDS: SERTRALINE HCL 50 MG TABLET PO SCH (20:56)
[2022-02-11] MEDS: ATENOLOL 25 MG TABLET PO SCH (20:56)
[2022-02-12] MEDS: SODIUM CHLORIDE 0.9% 1000ML 1,000 ML IV SCH (05:42)
[2022-02-12 06:28] LABS: Hematocrit (blood only) 37.7 % (37-47); Mean Corpuscular Hemoglobin 32.7 pg (25-34); Mean Corpuscular Hgb Conc 34.5 g/dL (32-36); Mean Corpuscular Volume 94.7 fL (80-100); Mean Platelet Volume 10.5 fL (7.4-10.4); Platelet Count 129 K/uL (130-400); RDW Coefficient of Variation 12.9 % (11.5-14.5); RDW Standard Deviation 44.8 fL (36.4-46.3); Red Blood Count 3.98 M/uL (4.2-5.4); White Blood Count 6.59 K/uL (4.8-10.8)
[2022-02-12 07:06] LABS: BUN Creatinine Ratio 17.5 (10-20); Calcium 7.7 mg/dl (8.5-10.1); Creatinine Clr Calc Pharmacy 54.7 ml/min; Est GFR (African American) 80.1 ml/min; Est GFR (Non-African American) 69.1 ml/min; Potassium 3.5 mmol/L (3.5-5.1)
[2022-02-12] MEDS: LEVOTHYROXINE SODIUM 75 MCG TABLET PO SCH (08:08)
[2022-02-12] MEDS: SERTRALINE HCL 50 MG TABLET PO SCH ×2 (08:08→21:08)
[2022-02-12] MEDS ORDERED: POTASSIUM CHLORIDE CRTAB 20 MEQ TABCR PO STA (14:47)
[2022-02-12] MEDS ORDERED: CALCIUM CARBONATE 500 MG CHEWABLE TAB PO ONE (14:50)
--- NOTE | 2022-02-12 14:50 | Hospitalist Progress Note ---
Date of Service February 12, 2022 Assessment & Plan (1) Generalized weakness: (2) Nausea vomiting and diarrhea: Plan: 81-year-old female with PMH HTN, dyslipidemia, hypothyroidism, depression, anxiety, asthma presented to ER with complaint of watery diarrhea x 3 days with 10 or more episodes daily. Nausea and vomiting on the day of arrival, upper abdominal discomfort relieved after vomiting. Reported chills and feeling hot on the day of arrival. She is being managed for the following: (1) Nausea vomiting and diarrhea: #. Likely viral AGE In ER T: 37.8C, other vitals stable. No leukocytosis. No significant electrolyte abnormality. COVID-[address] abdomen pelvis: . No acute intra-abdominal or intrapelvic abnormality. No bowel obstruction or bowel wall thickening. Normal appendix. Pt reports improving nausea, vomiting and diarrhea Advance diet as tolerated, antiemetics Pt report feeling weak, c/w IVF today f/u lytes, replace as appropriate. Stool PCR sent. (2) Generalized weakness: Plan: Reports generalized weakness past 2 days VIDEO TAPE [employer] started after diarrhea illness Rehydrate as above PT OT eval Pt lives alone. Reports still feeling weak. (3) HTN (hypertension): Plan: Continue atenolol (4) Hyperlipidemia: Plan: Continue simvastatin (5) Hypothyroidism: Plan: Continue levothyroxine (6) Asthma: Plan: No signs acute exacerbation Continue home inhalers (7) Depression with anxiety: Plan: Continue sertraline DVT Prophylaxis: Lovenox SQ DNR/DNI a Follows with Dr Terry for routine care Disposition: PT/OT, CM to assist w/ DC planning. Likely DC tomorrow if no new issues arise. Admission and Anticipated Discharge Date Admission Date: February 11, 2022 Subjective Patient seen and examined at bedside as a follow-up of likely viral acute gastroenteritis and generalized weakness. Patient was sitting up in chair, on room air, NAD, no new acute events overnight. Patient reports 1 diarrheal movement in the ED but none after coming up in the room. Patient denies any further vomiting. Patient reports feeling bloated and reports having nausea. Patient denies any fever/headache/dizziness. Patient reports being weak. Patient lives alone in the home. Patient denies any cough/sore throat/chest pain/palpitations/other review of symptoms. Physical Exam Physical Exam: GENERAL: Alert and oriented x3. NAD, on RA. HEENT: No pallor, no icterus. Pupils equal, round and reactive to light. Oral mucosa moist. NECK: No JVD, no neck masses. HEART: S1 and S2 heard. Regular rate and rhythm. No murmur, no gallop. RESPIRATORY SYSTEM: Normal AP diameter. No accessory muscle use. No wheezing, no crackles. ABDOMEN: Soft, bowel sounds present, nontender, no distention. CENTRAL NERVOUS SYSTEM: No facial droop. Speech is clear. Obeys simple commands. Moves extremities. EXTREMITIES: No edema, no erythema seen. Results & Data Results & Data ([facility]) Vital Signs (Past 12 Hours) Vital Signs Temp Pulse Resp BP Pulse Ox 02/12/22 07:44 36.7 C 76 16 141/66 H 92
[2022-02-12] MEDS: ENOXAPARIN INJ 40 MG/0.4 ML SYR SQ SCH (21:06)
[2022-02-12] MEDS: PANTOprazole 40 MG TAB PO SCH (21:07)
[2022-02-12] MEDS: SIMVASTATIN 20 MG TAB PO SCH (21:07)
[2022-02-12] MEDS: ATENOLOL 25 MG TABLET PO SCH (21:07)
[2022-02-12] MEDS: CALCIUM CARBONATE 500 MG CHEWABLE TAB PO SCH (21:15)
[2022-02-12] MEDS: FLUTICASONE FUROATE 200MCG 14 PUFFS/INHALER INH SCH (21:20)
[2022-02-12 21:36] LABS: Adenovirus F 40/41 PCR Not Detected (NotDetected); Astrovirus PCR Not Detected (NotDetected); Campylobacter PCR Not Detected (NotDetected); Clostridium diff Toxin A/B PCR Not Detected (NotDetected); Cryptosporidium PCR Not Detected (NotDetected); Cyclospora cayetanensis PCR Not Detected (NotDetected); Entamoeba histolytica PCR Not Detected (NotDetected); Enteroaggregative E.coli(EAEC) Not Detected (NotDetected); Enteropathogenic E.coli (EPEC) Not Detected (NotDetected); Enterotoxigenic E.coli (ETEC) Not Detected (NotDetected); Giardia lamblia PCR Not Detected (NotDetected); Plesiomonas shigelloides PCR Not Detected (NotDetected); Rotavirus A PCR Not Detected (NotDetected); Salmonella PCR Not Detected (NotDetected); Sapovirus PCR Not Detected (NotDetected); Shiga-like Toxin E.coli (STEC) Not Detected (NotDetected); Shigella/Enteroinvasive E.coli Not Detected (NotDetected); Vibrio cholerae PCR Not Detected (NotDetected); Vibrio species PCR Not Detected (NotDetected); Yersinia enterocolitica PCR Not Detected (NotDetected)
[2022-02-12 21:42] LABS: Norovirus GI/GII PCR DETECTED (NotDetected)
--- NOTE | 2022-02-12 21:59 | Electrocardiogram Report ---
Test Reason : Blood Pressure : / mmHG Vent. Rate : 074 BPM Atrial Rate : 074 BPM P-R Int : 192 ms QRS Dur : 074 ms QT Int : 414 ms P-R-T Axes : 041 013 058 degrees QTc Int : 459 ms Normal sinus rhythm Nonspecific T wave abnormality Abnormal ECG When compared with ECG of 08-JUN-2021 18:01, Premature atrial complexes are no longer Present Nonspecific T wave abnormality, worse in Anterolateral leads Confirmed by Panchito Ahmadi ([id number]) on 02/12/2022 9:58:50 PM Referred By: REFERRED SELF Confirmed By:Panchito Ahmadi
[2022-02-13 06:26] LABS: Hematocrit (blood only) 38.7 % (37-47); Hemoglobin 13.3 g/dL (12.0-16.0); Mean Corpuscular Hemoglobin 32.5 pg (25-34); Mean Corpuscular Hgb Conc 34.4 g/dL (32-36); Mean Corpuscular Volume 94.6 fL (80-100); Mean Platelet Volume 10.2 fL (7.4-10.4); Platelet Count 125 K/uL (130-400); RDW Coefficient of Variation 12.8 % (11.5-14.5); RDW Standard Deviation 44.4 fL (36.4-46.3); Red Blood Count 4.09 M/uL (4.2-5.4); White Blood Count 5.78 K/uL (4.8-10.8)
[2022-02-13 07:01] LABS: Calcium 8.3 mg/dl (8.5-10.1); Creatinine Clr Calc Pharmacy 54.6 ml/min; Est GFR (African American) 80.1 ml/min; Est GFR (Non-African American) 69.1 ml/min; Magnesium 1.9 mg/dl (1.7-2.4); Phosphorus 2.3 mg/dl (2.5-4.9); Potassium 3.7 mmol/L (3.5-5.1)
[2022-02-13] MEDS: CALCIUM CARBONATE 500 MG CHEWABLE TAB PO SCH ×2 (08:01→20:30)
[2022-02-13] MEDS: LEVOTHYROXINE SODIUM 75 MCG TABLET PO SCH (08:02)
[2022-02-13] MEDS: SERTRALINE HCL 50 MG TABLET PO SCH ×2 (08:02→20:30)
--- NOTE | 2022-02-13 08:09 | Hospitalist Progress Note ---
Date of Service February 13, 2022 Assessment & Plan (1) Generalized weakness: (2) Nausea vomiting and diarrhea: Plan: 81 yo F with PMH HTN, dyslipidemia, hypothyroidism, depression, anxiety, asthma presented to ER with complaint of watery diarrhea x 3 days with 10 or more episodes daily. Nausea and vomiting on the day of arrival, upper abdominal discomfort relieved after vomiting. Reported chills and feeling hot on the day of arrival. She is being managed for the following: (1) Nausea vomiting and diarrhea: #. Viral Acute Gastroenteritis due to Norovirus infection In ER T: 37.8C, other vitals stable. No leukocytosis. No significant electrolyte abnormality. COVID-[address] abdomen pelvis: . No acute intra-abdominal or intrapelvic abnormality. No bowel obstruction or bowel wall thickening. Normal appendix. Stool PCR sent - positive for Norovirus Pt reports improving nausea, vomiting and diarrhea Advance diet as tolerated, antiemetics Pt reports feeling weak f/u lytes, replace as appropriate. (2) Generalized weakness: Plan: Reports generalized weakness past 2 days SUPPORT SERVICES REP started after diarrhea illness Rehydrate as above PT OT eval Pt lives alone. Reports still feeling weak. (3) HTN (hypertension): Plan: Continue atenolol (4) Hyperlipidemia: Plan: Continue simvastatin (5) Hypothyroidism: Plan: Continue levothyroxine (6) Asthma: Plan: No signs acute exacerbation Continue home inhalers (7) Depression with anxiety: Plan: Continue sertraline DVT Prophylaxis: Lovenox SQ DNR/DNI a Follows with Dr Terry for routine care Disposition: PT/OT, CM to assist w/ DC planning. Likely DC tomorrow if no new issues arise. Admission and Anticipated Discharge Date Admission Date: February 11, 2022 Subjective Patient seen and examined at bedside as a follow-up of viral acute gastroenteritis ( d/t norovirus) and generalized weakness. Patient is laying in bed in NAD Patient reports having 1 loose stool last evening Currently denies nausea/vomiting, reports feeling much better but still quite weak. Patient denies any fever,chills,headache,dizziness. Patient denies any cough, chest pain. Reports mild abdominal cramping w/ stools. Patient lives alone in the home. Review of Systems Review of Systems: All systems reviewed & are unremarkable except as noted in Subjective Physical Exam Physical Exam: GENERAL: Alert and oriented x3. NAD, on RA. HEENT: No pallor, no icteru s. Pupils equal, round and reactive to light. Oral m ucosa moist. NECK: No JVD, no neck masses. HEART: S1 and S2 heard. Re gular rate and rhy thm. No murmur, n o gallop. RESPIRAT ORY: Normal AP di ameter. No access ory muscle use. 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 ABDOMEN: S oft, bowel sounds present, nontender , no distention. N EURO: No facial d khalida. Speech is c lear. Obeys simpl e commands. Moves extremities. EXTR EMITIES: No edema , no erythema seen . Results & Data Results & Data ([facility]) Vital Signs (Past 12 Hours) Vital Signs Temp Pulse Resp BP Pulse Ox Pulse Ox 02/12/22 22:43 94 02/12/22 22:38 37.3 C 64 18 120/57 L 92 02/12/22 21:17 65 110/59 L 94 Laboratory Results 02/13/22 02/13/22 02/13/22 Range/Units 06:07 06:07 06:07 WBC 5.78 (4.8-10.8) K/uL RBC 4.09 L (4.2-5.4) M/uL Hgb 13.3 (12.0-16.0) g/dL Hct 38.7 (37-47) % MCV 94.6 (80-100) fL MCH 32.5 (25-34) pg MCHC 34.4 (32-36) g/dL RDW Std Deviation 44.4 (36.4-46.3) fL RDW Coeff of Saroj 12.8 (11.5-14.5) % Plt Count 125 L (130-400) K/uL MPV 10.2 (7.4-10.4) fL Sodium 139 (136-145) mmol/L Potassium 3.7 (3.5-5.1) mmol/L Chloride 107 (98-107) mmol/L Carbon Dioxide 28 (21-32) mmol/L Anion Gap 4 (3-11) BUN 8 (6-23) mg/dl Creatinine 0.80 (0.6-1.2) mg/dl Est Cr Clr Drug Dosing 54.6 ml/min Est GFR ( Amer) 80.1 ml/min Est GFR (Non-Af Amer) 69.1 ml/min BUN/Creatinine Ratio 10.0 (10-20) Glucose 82 (70-99(Fasting)) mg/dl Calcium 8.3 L (8.5-10.1) mg/dl Ionized Calcium 1.17 (1.12-1.32) mmol/L Phosphorus 2.3 L (2.5-4.9) mg/dl Magnesium 1.9 (1.7-2.4) mg/dl Stl C. cayetanensis PCR (NotDetected) Stool Rotavirus A PCR (NotDetected) Stl Adenov F 40/ PCR (NotDetected) Stool Astrovirus (PCR) (NotDetected) Stool Campylobacter PCR (NotDetected) Stl C. diff Tox A/B PCR (NotDetected) Stool Cryptosporidium PCR (NotDetected) Stl E.coli Shiga Tox PCR (NotDetected) Stl Enterotoxigenic E PCR (NotDetected) Stool EPEC (PCR) (NotDetected) Stool EAEC (PCR) (NotDetected) Stl E. histolytica PCR (NotDetected) Stool Giardia Lamblia PCR (NotDetected) Stool Salmonella PCR (NotDetected) Stool Sapovirus (PCR) (NotDetected) Stl P. shigelloides PCR (NotDetected) Stl Shigella/EIEC PCR (NotDetected) St Y.enterocolitica PCR (NotDetected) Stool Vibrio (PCR) (NotDetected) Stl Vibrio cholerae PCR (NotDetected) Stl Norovirus GI/GII PCR (NotDetected) 02/12/22 Range/Units Unknown WBC (4.8-10.8) K/uL RBC (4.2-5.4) M/uL Hgb (12.0-16.0) g/dL Hct (37-47) % MCV (80-100) fL MCH (25-34) pg MCHC (32-36) g/dL RDW Std Deviation (36.4-46.3) fL RDW Coeff of Saroj (11.5-14.5) % Plt Count (130-400) K/uL MPV (7.4-10.4) fL Sodium (136-145) mmol/L Potassium (3.5-5.1) mmol/L Chloride (98-107) mmol/L Carbon Dioxide (21-32) mmol/L Anion Gap (3-11) BUN (6-23) mg/dl Creatinine (0.6-1.2) mg/dl Est Cr Clr Drug Dosing ml/min Est GFR ( Amer) ml/min Est GFR (Non-Af Amer) ml/min BUN/Creatinine Ratio (10-20) Glucose (70-99(Fasting)) mg/dl Calcium (8.5-10.1) mg/dl Ionized Calcium (1.12-1.32) mmol/L Phosphorus (2.5-4.9) mg/dl Magnesium (1.7-2.4) mg/dl Stl C. cayetanensis PCR Not Detected (NotDetected) Stool Rotavirus A PCR Not Detected (NotDetected) Stl Adenov F 40/41 PCR Not Detected (NotDetected) Stool Astrovirus (PCR) Not Detected (NotDetected) Stool Campylobacter PCR Not Detected (NotDetected) Stl C. diff Tox A/B PCR Not Detected (NotDetected) Stool Cryptosporidium PCR Not Detected (NotDetected) Stl E.coli Shiga Tox PCR Not Detected (NotDetected) Stl Enterotoxigenic E PCR Not Detected (NotDetected) Stool EPEC (PCR) Not Detected (NotDetected) Stool EAEC (PCR) Not Detected (NotDetected) Stl E. histolytica PCR Not Detected (NotDetected) Stool Giardia Lamblia PCR Not Detected (NotDetected) Stool Salmonella PCR Not Detected (NotDetected) Stool Sapovirus (PCR) Not Detected (NotDetected) Stl P. shigelloides PCR Not Detected (NotDetected) Stl Shigella/EIEC PCR Not Detected (NotDetected) St Y.enterocolitica PCR Not Detected (NotDetected) Stool Vibrio (PCR) Not Detected (NotDetected) Stl Vibrio cholerae PCR Not Detected (NotDetected) Stl Norovirus GI/GII PCR DETECTED A* (NotDetected) Medications Administered Current Inpatient Medications Acetaminophen (Acetaminophen 325 Mg Tab) 650 mg PO Q4H PRN PRN Reason: Pain or Fever Stop: 03/13/22 19:59 Albuterol (Albuterol Hfa 8 Gm Inhaler) 2 puffs INH Q4H PRN PRN Reason: cough,sob,wheezing Stop: 03/13/22 19:59 Atenolol (Atenolol 25 Mg Tablet) 25 mg PO [facility] Stop: 03/13/22 20:59 Last Admin: 02/12/22 21:07 Dose: 25 mg Documented by: Calcium Carbonate (Calcium Carbonate 500 Mg Chewable Tab) 1,000 mg PO BID [facility] Stop: 02/15/22 09:01 Last Admin: 02/13/22 08:01 Dose: 1,000 mg Documented by: Enoxaparin Sodium (Enoxaparin Inj 40 Mg/0.4 Ml Syr) 40 mg SQ Q24H [facility] Stop: 03/13/22 19:59 Last Admin: 02/12/22 21:06 Dose: 40 mg Documented by: Fluticasone Furoate (Fluticasone Furoate 200mcg 14 Puffs/Inhaler) 1 puffs INH [facility] Stop: 03/13/22 20:59 Last Admin: 02/12/22 21:20 Dose: 1 puffs Documented by: Levothyroxine Sodium (Levothyroxine Sodium 75 Mcg Tablet) 75 mcg PO DAILY [facility] Stop: 03/14/22 08:59 Last Admin: 02/13/22 08:02 Dose: 75 mcg Documented by: Ondansetron HCl (Ondansetron Inj 2 Mg/Ml 2 Ml Vial) 4 mg IV Q6H PRN PRN Reason: Nausea Stop: 03/13/22 19:59 Last Admin: 02/12/22 13:42 Dose: 4 mg Documented by: Pantoprazole Sodium (Pantoprazole 40 Mg Tab) 40 mg PO [facility] Stop: 03/13/22 20:59 Last Admin: 02/12/22 21:07 Dose: 40 mg Documented by: Sertraline HCl (Sertraline Hcl 50 Mg Tablet) 50 mg PO BID [facility] Stop: 03/13/22 20:59 Last Admin: 02/13/22 08:02 Dose: 50 mg Documented by: Simvastatin (Simvastatin 20 Mg Tab) 20 mg PO [facility] Stop: 03/13/22 20:59 Last Admin: 02/12/22 21:07 Dose: 20 mg Documented by:
[2022-02-13] MEDS ORDERED: POTASSIUM CHLORIDE CRTAB 20 MEQ TABCR PO STA (08:10)
[2022-02-13] MEDS: ENOXAPARIN INJ 40 MG/0.4 ML SYR SQ SCH (20:29)
[2022-02-13] MEDS: PANTOprazole 40 MG TAB PO SCH (20:30)
[2022-02-13] MEDS: SIMVASTATIN 20 MG TAB PO SCH (20:30)
[2022-02-13] MEDS: ATENOLOL 25 MG TABLET PO SCH (20:30)
[2022-02-13] MEDS: FLUTICASONE FUROATE 200MCG 14 PUFFS/INHALER INH SCH (20:31)
[2022-02-14] MEDS ORDERED: diphenhydrAMINE Capsule 25 MG CAP PO ONE (03:19)
[2022-02-14 08:17] LABS: BUN Creatinine Ratio 8.3 (10-20); Calcium 8.9 mg/dl (8.5-10.1); Creatinine Clr Calc Pharmacy 51.9 ml/min; Est GFR (African American) 75.5 ml/min; Est GFR (Non-African American) 65.2 ml/min; Potassium 3.7 mmol/L (3.5-5.1)
[2022-02-14] MEDS ORDERED: POTASSIUM CHLORIDE CRTAB 20 MEQ TABCR PO STA (09:11)
--- NOTE | 2022-02-14 09:12 | Hospitalist Progress Note ---
Date of Service February 14, 2022 Assessment & Plan (1) Generalized weakness: (2) Nausea vomiting and diarrhea: Plan: 81 yo F with PMH HTN, dyslipidemia, hypothyroidism, depression, anxiety, asthma presented to ER with complaint of watery diarrhea x 3 days with 10 or more episodes daily. Nausea and vomiting on the day of arrival, upper abdominal discomfort relieved after vomiting. Reported chills and feeling hot on the day of arrival. She is being managed for the following: (1) Nausea vomiting and diarrhea: #. Viral Acute Gastroenteritis due to Norovirus infection In ER T: 37.8C, other vitals stable. No leukocytosis. No significant electrolyte abnormality. COVID-[address] abdomen pelvis: . No acute intra-abdominal or intrapelvic abnormality. No bowel obstruction or bowel wall thickening. Normal appendix. Stool PCR sent - positive for Norovirus Pt reports improving nausea, vomiting and diarrhea Advance diet as tolerated, antiemetics Pt reports feeling weak f/u lytes, replace as appropriate. Now tolerates advanced diet and doing much better overall. 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 (3) HTN (hypertension): Plan: Continue atenolol (4) Hyperlipidemia: Plan: Continue simvastatin (5) Hypothyroidism: Plan: Continue levothyroxine (6) Asthma: Plan: No signs acute exacerbation Continue home inhalers (7) Depression with anxiety: Plan: Continue sertraline DVT Prophylaxis: Lovenox SQ DNR/DNI a Follows with Dr Terry for routine care Disposition: Plan to DC home today. Admission and Anticipated Discharge Date Admission Date: February 13, 2022 Subjective Patient seen in a follow-up of viral acute gastroenteritis ( d/t norovirus) and generalized weakness. Patient is laying in bed in NAD Patient reports feeling much better, tolerated advanced diet Currently denies nausea/vomiting, no loose stools Patient denies any fever,chills,headache,dizziness. Review of Systems Review of Systems: All systems reviewed & are unremarkable except as noted in Subjective Physical Exam Physical Exam: GENERAL: Alert and oriented x3. NAD, on RA. HEENT: No pallor, no icteru s. Pupils equal, round and reactive to light. Oral m ucosa moist. NECK: No JVD, no neck masses. HEART: S1 and S2 heard. Re gular rate and rhy thm. No murmur, n o gallop. RESPIRAT ORY: Normal AP di ameter. No access ory muscle use. 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 ABDOMEN: S oft, bowel sounds present, nontender , no distention. N EURO: No facial d khalida. Speech is c lear. Obeys simpl e commands. Moves extremities. EXTR EMITIES: No edema , no erythema seen . Results & Data Results & Data ([facility]) Vital Signs (Past 12 Hours) Vital Signs Temp Pulse Resp BP BP Pulse Ox 02/14/22 08:23 36.7 C 53 L 18 122/66 91 02/14/22 00:23 36.9 C 56 L 18 126/73 92 Laboratory Results 02/14/22 Range/Units 07:17 Sodium 141 (136-145) mmol/L Potassium 3.7 (3.5-5.1) mmol/L Chloride 107 (98-107) mmol/L Carbon Dioxide 30 (21-32) mmol/L Anion Gap 4 (3-11) BUN 7 (6-23) mg/dl Creatinine 0.84 (0.6-1.2) mg/dl Est Cr Clr Drug Dosing 51.9 ml/min Est GFR ( Amer) 75.5 ml/min Est GFR (Non-Af Amer) 65.2 ml/min BUN/Creatinine Ratio 8.3 L (10-20) Glucose 87 (70-99(Fasting)) mg/dl Calcium 8.9 (8.5-10.1) mg/dl Magnesium 2.0 (1.7-2.4) mg/dl Medications Administered Current Inpatient Medications Acetaminophen (Acetaminophen 325 Mg Tab) 650 mg PO Q4H PRN PRN Reason: Pain or Fever Stop: 03/13/22 19:59 Albuterol (Albuterol Hfa 8 Gm Inhaler) 2 puffs INH Q4H PRN PRN Reason: cough,sob,wheezing Stop: 03/13/22 19:59 Atenolol (Atenolol 25 Mg Tablet) 25 mg PO HS [facility] Stop: 03/13/22 20:59 Last Admin: 02/13/22 20:30 Dose: 25 mg Documented by: Calcium Carbonate (Calcium Carbonate 500 Mg Chewable Tab) 1,000 mg PO BID [facility] Stop: 02/15/22 09:01 Last Admin: 02/13/22 20:30 Dose: 1,000 mg Documented by: Enoxaparin Sodium (Enoxaparin Inj 40 Mg/0.4 Ml Syr) 40 mg SQ Q24H [facility] Stop: 03/13/22 19:59 Last Admin: 02/13/22 20:29 Dose: 40 mg Documented by: Fluticasone Furoate (Fluticasone Furoate 200mcg 14 Puffs/Inhaler) 1 puffs INH HS [facility] Stop: 03/13/22 20:59 Last Admin: 02/13/22 20:31 Dose: 1 puffs Documented by: Levothyroxine Sodium (Levothyroxine Sodium 75 Mcg Tablet) 75 mcg PO DAILY [facility] Stop: 03/14/22 08:59 Last Admin: 02/13/22 08:02 Dose: 75 mcg Documented by: Ondansetron HCl (Ondansetron Inj 2 Mg/Ml 2 Ml Vial) 4 mg IV Q6H PRN PRN Reason: Nausea Stop: 03/13/22 19:59 Last Admin: 02/12/22 13:42 Dose: 4 mg Documented by: Pantoprazole Sodium (Pantoprazole 40 Mg Tab) 40 mg PO HS [facility] Stop: 03/13/22 20:59 Last Admin: 02/13/22 20:30 Dose: 40 mg Documented by: Potassium Chloride (Potassium Chloride Crtab 20 Meq Tabcr) 20 meq PO NOW STA Stop: 02/14/22 09:12 Sertraline HCl (Sertraline Hcl 50 Mg Tablet) 50 mg PO BID [facility] Stop: 03/13/22 20:59 Last Admin: 02/13/22 20:30 Dose: 50 mg Documented by: Simvastatin (Simvastatin 20 Mg Tab) 20 mg PO HS [facility] Stop: 03/13/22 20:59 Last Admin: 02/13/22 20:30 Dose: 20 mg Documented by:
[2022-02-14] MEDS: CALCIUM CARBONATE 500 MG CHEWABLE TAB PO SCH (09:18)
[2022-02-14] MEDS: LEVOTHYROXINE SODIUM 75 MCG TABLET PO SCH (09:18)
[2022-02-14] MEDS: SERTRALINE HCL 50 MG TABLET PO SCH (09:18)
--- NOTE | 2022-02-14 14:14 | Discharge Summary ---
Date of Service February 14, 2022 Admission HPI Per Admitting Provider Patient is 81-year-old female with PMH HTN, dyslipidemia, hypothyroidism, depression, anxiety, asthma presented to ER with complaint of nausea vomiting diarrhea. Patient reports started with diarrhea 3 days ago. Reports 10 or more episodes of watery diarrhea daily for past 3 days. Today started with nausea and vomiting and reports vomited approximately 6 times prior to ER arrival. Patient states prior and during vomiting has upper abdominal discomfort that resolves after vomiting. Denies other abdominal pain. Today feeling hot and chills reports EMS reported T: 100.8F today. Patient reports feeling diffuse weakness past 2 days. Last ate chicken noodle soup yesterday afternoon. Reports tried ice chips in ER and caused nausea and vomited once. Patient lives alone. She denies any ill contacts, recent travel, recent antibiotic use. Denies diaphoresis, hematemesis, hematochezia, melena, JOLLY, dizziness, syncope, vision changes, neck pain, CP, SOB, orthopnea, palpitations, cough, sore throat, choking, otalgia, rhinorrhea, paresthesias, extremity edema, rashes, urinary symptoms. Admission Exam Per Admitting Provider General: no acute distress, overweight Head: normocephalic, atraumatic Eyes: PERRL, EOM's intact, conjunctiva non-injected, anicteric ENT: normal inspection external ears, nose, mucous membranes dry Neck: supple, trachea midline Lungs: clear, no respiratory distress, no wheezing/rhonchi/rales CV: RRR, no murmur, no pretibial edema Abd: protuberant, normal BS, soft, non-tender to palpation Ext: no cyanosis, no calf tenderness Neuro: A&O x 3, no focal deficits noted, normal affect Skin: warm, dry Principal Diagnosis Acute gastroenteritis secondary to Norovirus infection Discharge Exam GENERAL: Alert and oriented x3. NAD, on RA. HEENT: No pallor, no icterus. Pupils equal, round and reactive to light. Oral mucosa moist. NECK: No JVD, no neck masses. HEART: S1 and S2 heard. Regular rate and rhythm. No murmur, no gallop. RESPIRATORY: Normal AP diameter. No accessory muscle use. No wheezing, no crackles. ABDOMEN: Soft, bowel sounds present, nontender, no distention. NEURO: No facial droop. Speech is clear. Obeys simple commands. Moves extremities. EXTREMITIES: No edema, no erythema seen. Discharge Data Allergies Allergy/AdvReac Type Severity Reaction Status Date / Time Sulfa (Sulfonamide Allergy Severe HIVES, Verified 02/12/22 14:48 Antibiotics) SWELLING atorvastatin Allergy Intermediate REDNESS,ITCHY Verified 02/11/22 15:09 RASH azithromycin Allergy Intermediate Redness of Verified 02/11/22 15:09 Skin, heart racing bee venom protein (honey bee) Allergy Intermediate WHEEZING,ITCHY Verified 02/11/22 15:09 EYES, REDNESS doxycycline Allergy Intermediate REDMITCHY Verified 02/11/22 15:09 HIVES, THROAT SWELLS niacin Allergy Intermediate UNKNOWN TO Verified 02/11/22 15:09 PT-REDNESS? pollen extracts Allergy Intermediate POLLEN,TREES, Verified 02/11/22 15:09 DUST MITES-ITCHY EYES WHEEZING propofol Allergy Intermediate LOW Verified 02/11/22 15:09 BP,"WENT OUT"-BLACKED OUT terfenadine Allergy Intermediate HEART Verified 02/11/22 15:09 PALPITATIONS lisinopril Allergy Unknown angioedema Verified 02/11/22 16:19 possibly related to lisinopril ranitidine AdvReac Intermediate headache Verified 02/11/22 15:09 sulfamethoxazole AdvReac Intermediate GI UPSET Verified 02/11/22 15:09 [From Bactrim] trimethoprim [From Bactrim] AdvReac Intermediate GI UPSET Verified 02/11/22 15:09 Aromatic Oils Allergy Intermediate ANY Uncoded 02/11/22 15:09 MAKE-UP,PERFUMES, COSMETICS-ITCHY EYES,WHEEZING Consultations 02/11/22 16:10 ED Decision to Admit Stat Ordered Studies 02/11/22 16:38 CT abd pelvis wo con Stat Hospital Course (1) Generalized weakness: (2) Nausea vomiting and diarrhea: 81 yo F with PMH HTN, dyslipidemia, hypothyroidism, depression, anxiety, asthma presented to ER with complaint of watery diarrhea x 3 days with 10 or more episodes daily. Nausea and vomiting on the day of arrival, upper abdominal discomfort relieved after vomiting. Reported chills and feeling hot on the day of arrival. She is being managed for the following: (1) Nausea vomiting and diarrhea: #. Viral Acute Gastroenteritis due to Norovirus infection In ER T: 37.8C, other vitals stable. No leukocytosis. No significant electrolyte abnormality. COVID-[address] abdomen pelvis: . No acute intra-abdominal or intrapelvic abnormality. No bowel obstruction or bowel wall thickening. Normal appendix. Stool PCR sent - positive for Norovirus Pt reports improving nausea, vomiting and diarrhea Advance diet as tolerated, antiemetics Pt reports feeling weak f/u lytes, replace as appropriate. Now tolerates advanced diet and doing much better overall. 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 (3) HTN (hypertension): Plan: Continue atenolol (4) Hyperlipidemia: Plan: Continue simvastatin (5) Hypothyroidism: Plan: Continue levothyroxine (6) Asthma: Plan: No signs acute exacerbation Continue home inhalers (7) Depression with anxiety: Plan: Continue sertraline DVT Prophylaxis: Lovenox SQ DNR/DNI a Follows with Dr Terry for routine care Disposition: Plan to MA home today. Total Time Total Time Spent Total Time Spent (In Minutes): 40 Discharge Plan Discharge Items Patient Disposition: Home - Self-Care Reason For Visit: VOMITING, DIARRHEA Discharge Diagnosis: Acute gastroenteritis secondary to Norovirus infection Activity: Per Instructions section Non-emergency contact: Primary Care Provider Call non-emergency contact if: you have any medication questions and your symptoms worsen Follow-up/Referrals: Alycia Terry DO [Primary Care Provider] - (Date & Time 02/18/2022 11:20 AM Provider Alycia Terry DO [facility] ) Diet: Regular Addtl Attending Provider Instructions: Please follow up with your primary care doctor. The appointment was scheduled for you for 02/18. Recommend to avoid heavy, fatty foods. Also would recommend no dairy for next couple of days. Make sure you stay well hydrated. Pending Studies at Discharge: No Stand-Alone Forms: [employer], Smoking Cessation Medications and DC Order Prescriptions: Continued albuterol sulfate 90 mcg/actuation HFA aerosol inhaler 2 puffs inhalation Q4H PRN (Reason: cough,sob,wheezing) Qty: 1 RF: 0 cyanocobalamin (vitamin B-12) 1,000 mcg tablet 1,000 mcg PO DAILY Qty: 90 RF: 0 levothyroxine 75 mcg tablet 75 mcg PO DAILY RF: 0 omeprazole 20 mg capsule,delayed release(DR/EC) 40 mg PO HS RF: 0 sertraline 50 mg tablet 50 mg PO BID RF: 0 Metamucil Packet 1 packet PO DAILY RF: 0 glycerin (adult) Suppository 1 supp OR DAILY PRN (Reason: Constipation) RF: 0 cholecalciferol (vitamin D3) [Vitamin D3] 25 mcg (1,000 unit) Tablet,Chewable 25 mcg PO DAILY RF: 0 Qvar RediHaler 80 mcg/actuation HFA aerosol breath activated 2 inh INHALATION BID RF: 0 atenolol 25 mg tablet 25 mg PO HS RF: 0 simvastatin 20 mg tablet 20 mg PO HS RF: 0 Changed docusate sodium [Colace] 100 mg Capsule 100 mg PO BID PRN (Reason: constipation) Qty: 0 RF: 0 Discharge Orders: Discharge Order (Routine); Ordered 02/14/22 Ordered By: Andrey Youngblood Admission Data Admit Date/Time: 02/13/22 12:20 Attending Provider: Andrey Youngblood Admit Provider: Jimi Vidal Primary Care Provider: Alycia Terry Other Providers: Jimi Vidal ; Kassandra Davis
== END 2022-02-14 16:44 | disposition home or self-care (01) | DRG 392 ==
LOC: 3W 13:33 → ED 13:33 → SUATTDRO 16:32 → 3W 19:27

== ENCOUNTER 2024-07-16 15:32 | Inpatient (IN) ==
[2024-07-16] MEDS: ASPIRIN CHEW 324 MG PO STA (15:53)
--- NOTE | 2024-07-16 16:06 | XRay Report ---
XR chest 1V portable HISTORY: 84 years-old Female Chest pain, nonspecific COMPARISON: November 04, 2023 TECHNIQUE: AP view of the chest FINDINGS: Cardiomediastinal and hilar silhouettes are unchanged. Atherosclerosis of the aorta. No pneumothorax, pleural effusion or pulmonary edema. Bones appear grossly intact. IMPRESSION: No acute process. ACT 112: Negative or not required by law. The above report was generated using voice recognition software. It may contain grammatical, syntax o r spelling errors. Electronically signed by: Baudilio Ortiz M.D. 07/16/2024 4:04 PM
[2024-07-16 16:12] LABS: Basophils # (auto) 0.05 K/uL (0.00-0.20); Basophils % (auto) 0.4 %; Eosinophils # (auto) 0.09 K/uL (0.00-0.50); Eosinophils % (auto) 0.8 %; Hematocrit (blood only) 42.1 % (37.0-47.0); Hemoglobin 14.7 g/dl (12.0-16.0); Immature Granulocytes # (auto) 0.06 K/uL (0.01-0.20); Immature Granulocytes % (auto) 0.5 %; Lymphocytes # (auto) 2.32 K/uL (1.20-3.40); Lymphocytes % (auto) 20.4 %; Mean Corpuscular Hemoglobin 31.7 pg (25.0-34.0); Mean Corpuscular Hgb Conc 34.9 g/dL (32.0-36.0); Mean Corpuscular Volume 90.9 fL (80.0-100.0); Mean Platelet Volume 10.3 fL (9.4-12.4); Monocytes # (auto) 0.98 K/uL (0.11-0.59); Monocytes % (auto) 8.6 %; Neutrophils % (auto) 69.3 %; Platelet Count 174 K/uL (130-400); RDW Coefficient of Variation 12.3 % (11.5-14.5); RDW Standard Deviation 41.1 fL (36.4-46.3); Red Blood Count 4.63 M/uL (4.20-5.40)
[2024-07-16] MEDS: SODIUM CHLORIDE 0.9% 500 ML IV SCH (16:15)
[2024-07-16] MEDS: NITROGLYCERIN SL 0.4 MG/TAB TAB SL PRN (16:16)
[2024-07-16 16:27] LABS: BUN Creatinine Ratio 14.3 (10-20); Calcium 9.4 mg/dl (8.6-10.3); Creatinine Clr Calc Pharmacy 56.6 ml/min; Est GFR (African American) 82.2 ml/min; Est GFR (Non-African American) 70.9 ml/min; Potassium 3.6 mmol/L (3.5-5.1)
[2024-07-16 16:38] LABS: Partial Thromboplastin Ratio 0.9; Partial Thromboplastin Time 25 Seconds (21-31); Prothrombin Time 10.7 Seconds (9.0-12.0)
--- NOTE | 2024-07-16 17:20 | History & Physical Report ---
<Statement entered by Naren Cisneros MD - 07/16/24 18:28> Attending Addendum: Case reviewed with the advanced practitioner. I have personally performed a history and physical examination on the patient. I have reviewed the advanced practitioner's documentation on the date of service referenced in note, and I agree with, and take responsibility for the plan of care. Cp which resolved prior to arrival in the ED. Prefers to be admitted will have cardio see her, further plan based on their evaluation. Date of Service July 16, 2024 Assessment & Plan (1) Chest pain: Plan: Patient is 84-year-old female with PMH HTN, HLD, hypothyroidism, asthma, depression, anxiety presented to ER with c/o upper chest and neck tightness and left jaw discomfort today while cleaning. Symptoms persisted couple hours and in ER given aspirin 324mg and 1 SL nitro and patient reports relief. Initial BP in ER 193/72 down to 137/71 Initial troponin negative EKG sinus rhythm, T wave inversion and flattening septal and anterior leads which was also seen on EKG 11/2023 per my interpretation R/O ACS. DDx: Hypertensive urgency/emergency. Risk factors: HTN, hyperlipidemia, obesity Monitor Vitals Repeat EKG in am Will trend troponin Echo 10/14/2022 stress echo: No evidence of inducible ischemia, EF: 60-64%, mild AR, mild TR 02/09/24: EF: 65%, no LV wall motion abnormality, grade 1 diastolic dysfunction, mild AR Lipid panel in am. Continue rosuvastatin Aspirin daily Nitro prn CP and repeat EKG for CP Cardiology consult (2) HTN (hypertension): Plan: BP initially elevated in ER. Improved after 1 SL nitro Monitor Continue amlodipine (3) Hyperlipidemia: Plan: Continue rosuvastatin Lipid panel in am (4) Hypothyroidism: Plan: TSH in am Continue levothyroxine (5) Asthma: Plan: No signs acute exacerbation Continue home inhalers (6) Depression with anxiety: Plan: Continue sertraline DVT Prophylaxis Heparin SQ Admit med tele Conditional code with wanting chest compressions, defibrillation and medications but does Not want intubation or ventilation as per discussion with pt Follows with Dr Terry for routine care Pt was seen and care coordinated with Dr Cisneros. See addendum I spent a total of 75 minutes reviewing notes, outpatient records, labs, medication, coordinating, documenting and providing care for this patient excluding time spent in the performance of separately billed services. History of Present Illness Chief Complaint: CP Primary Care Provider: Alycia Terry DO Patient is 84-year-old female with PMH HTN, HLD, hypothyroidism, asthma, depression, anxiety presented to ER with c/o CP today. Describes tightness, squeezing sensation to upper chest and neck and left jaw aching that occurred when she was cleaning today. Symptoms persisted couple of hours and were present when arriving at ER. In ER given aspirin 324mg and 1 SL nitro and patient reports relief. She denies any SOB, diaphoresis, dizziness, N/V, or palpitations with this episode. Denies any similar symptoms in the past. Patient reports chronic dizziness/lightheadedness with walking "too fast" but states didn't have dizziness today. Denies fever/chills, diaphoresis, N/V/D/C, JOLLY, syncope, vision changes, CP, SOB, orthopnea, cough, sore throat, choking, rhinorrhea, abdominal pain, paresthesias, weakness, extremity weakness, increased extremity edema, rashes, urinary symptoms. per outpatient records: 10/14/2022 stress echo: No evidence of inducible ischemia, EF: 60-64%, mild AR, mild TR 02/09/24: EF: 65%, no LV wall motion abnormality, grade 1 diastolic dysfunction, mild AR Allergies Allergy/AdvReac Type Severity Reaction Status Date / Time Sulfa (Sulfonamide Allergy Severe HIVES, Verified 08/21/23 09:52 Antibiotics) SWELLING atorvastatin Allergy Intermediate REDNESS,ITCHY Verified 08/21/23 09:52 RASH azithromycin Allergy Intermediate Redness of Verified 08/21/23 09:52 Skin, heart racing bee venom protein (honey bee) Allergy Intermediate WHEEZING,ITCHY Verified 08/21/23 09:52 EYES, REDNESS doxycycline Allergy Intermediate REDMITCHY Verified 08/21/23 09:52 HIVES, THROAT SWELLS niacin Allergy Intermediate UNKNOWN TO Verified 08/21/23 09:52 PT-REDNESS? pollen extracts Allergy Intermediate POLLEN,TREES, Verified 08/21/23 09:52 DUST MITES-ITCHY EYES WHEEZING propofol Allergy Intermediate LOW Verified 08/21/23 09:52 BP,"WENT OUT"-BLACKED OUT terfenadine Allergy Intermediate HEART Verified 08/21/23 09:52 PALPITATIONS lisinopril Allergy Unknown angioedema Verified 08/21/23 09:52 possibly related to lisinopril ranitidine AdvReac Intermediate headache Verified 08/21/23 09:52 sulfamethoxazole AdvReac Intermediate GI UPSET Verified 08/21/23 09:52 [From Bactrim] trimethoprim [From Bactrim] AdvReac Intermediate GI UPSET Verified 08/21/23 09:52 red beets Allergy Severe Anaphylaxis Uncoded 08/13/23 11:40 Aromatic Oils Allergy Intermediate ANY Uncoded 08/13/23 11:38 MAKE-UP,PERFUMES, COSMETICS-ITCHY EYES,WHEEZING Home Medications Medication Instructions Recorded Confirmed Type albuterol sulfate 90 mcg/actuation 2 puffs inhalation Q4H PRN 06/08/19 07/16/24 History aerosol inhaler cough,sob,wheezing #1 g cyanocobalamin (vitamin B-12) 1,000 mcg PO QAM #90 tabs 06/08/19 07/16/24 History 1,000 mcg tablet beclomethasone dipropionate 80 2 inh inhalation BID 09/02/20 07/16/24 History mcg/actuation HFA breath activated aerosol (Qvar RediHaler) cholecalciferol (vitamin D3) 25 25 mcg PO QAM 09/02/20 07/16/24 History mcg (1,000 unit) chewable tablet (Vitamin D3) levothyroxine 75 mcg tablet 75 mcg PO QAM 09/02/20 07/16/24 History amlodipine 2.5 mg tablet 2.5 mg PO QAM 08/13/23 07/16/24 History diphenhydramine HCl 25 mg capsule 25 mg PO TID PRN Allergic Reaction 08/13/23 07/16/24 History (Benadryl) epinephrine 0.1 mg/0.1 mL 0.1 mg IM UD PRN Anaphylaxis 08/13/23 07/16/24 History injection, auto-injector omeprazole 20 mg tablet,delayed 20 mg PO QAM 08/13/23 07/16/24 History release rosuvastatin 10 mg tablet 10 mg PO DAILY 07/16/24 07/16/24 History sertraline 100 mg tablet 100 mg PO DAILY 07/16/24 07/16/24 History Past Med/Surg History Problem List Chest pain (Acute) Encounter for diagnostic colonoscopy due to change in bowel habits Encounter for pre-operative examination History of eye surgery Hyperlipidemia (Chronic) Osteoarthritis, multiple sites (Chronic) Generalized anxiety disorder (Chronic) Asthma (Chronic) Acute sinus infection (Acute) Left-sided weakness Hematochezia Nausea vomiting and diarrhea (Acute) Generalized weakness Depression with anxiety HTN (hypertension) History of oral surgery Hypothyroidism (Chronic) IBS (irritable bowel syndrome) (Chronic) Anemia (Chronic) GERD (gastroesophageal reflux disease) (Chronic) Lumbar stenosis with neurogenic claudication Medical History Nonrheumatic tricuspid (valve) insufficiency Nonrheumatic aortic (valve) insufficiency Umbilical hernia Ambulatory dysfunction uses walker Asthma well controlled, no asthma attacks in the last 2 years per pt History of anesthesia reaction cardiac arrest after her multiple colonoscopies at [facility] because she was given too much medication and states she is "sensitive to medications". Did not have complications at last colonoscopy per pt. States "no anesthesia allergy, just sensitive to it". Surgical History History of D&C History of section History of laryngoscopy has "polyps" present History of bronchoscopy History of discectomy Dr Reese, details unknown by pt History of cataract surgery bilateral History of colonoscopy Family History Unknown Gastric cancer Schizophrenia Sister Crohn's disease Brother Schizophrenia Lung cancer Son Myocardial infarction Daughter Breast cancer Mother Myocardial infarction Cancer Father Lung cancer Cancer Grandmother (Maternal) Heart trouble Aunt Convulsion Social History Smoking Status: Never smoker Tobacco Type: Cigarettes Second Hand Exposure: No; Do You Dip or Chew Tobacco: No; Hx Alcohol Use: No Hx Substance Use: No Preferred Language: Hungarian Communication Ability: Effective Crtt Required: No Beliefs That Will Affect Care: None Current Living Situation: Alone Feels Safe at Home: Yes Assistive Devices: Denture - Upper, Glasses and Walker Review of Systems Review of Systems: All systems reviewed & are unremarkable except as noted in HPI & below Physical Exam Physical Exam: General: no distress, WDWN Head: normocephalic, atraumatic Eyes: conjunctiva non-injected, anicteric ENT: normal inspection external ears, nose, mucous membranes moist Neck: supple, trachea midline Lungs: clear, no respiratory distress, no wheezing/rhonchi/rales CV: RRR, no JVD, no pretibial edema Abd: normal BS, soft, non-tender Ext: no cyanosis, no calf tenderness Neuro: A&O x 3, no focal deficits noted, normal affect Skin: warm, dry Results & Data Results & Data Vital Signs (Past 12 Hours) Vital Signs Temp Pulse Pulse Resp BP BP Pulse Ox 07/16/24 16:24 68 22 137/71 93 07/16/24 16:24 07/16/24 16:16 69 07/16/24 15:55 67 20 97 07/16/24 15:34 36.6 C 71 18 193/72 H 98 O2 Del Method 07/16/24 16:24 Room Air 07/16/24 16:24 Room Air 07/16/24 16:16 07/16/24 15:55 Room Air 07/16/24 15:34 Room Air Laboratory Results Short CBC 07/16/24 Range/Units 15:50 WBC 11.40 H (4.8-10.8) K/ul Hgb 14.7 (12.0-16.0) g/dl Hct 42.1 (37.0-47.0) % Plt Count 174 (130-400) K/uL BMP 07/16/24 15:50 Sodium 137 Potassium 3.6 Chloride 104 Carbon Dioxide 27 BUN 11 Creatinine 0.77 Glucose 93 Calcium 9.4 Diagnostic Findings Chest X-Ray 07/16/24 15:47 XR chest 1V portable HISTORY: 84 years-old Female Chest pain, nonspecific COMPARISON: November 04, 2023 TECHNIQUE: AP view of the chest FINDINGS: Cardiomediastinal and hilar silhouettes are unchanged. Atherosclerosis of the aorta. No pneumothorax, pleural effusion or pulmonary edema. Bones appear grossly intact. IMPRESSION: No acute process. ACT 112: Negative or not required by law. The above report was generated using voice recognition software. It may contain grammatical, syntax or spelling errors. Electronically signed by: Baudilio Ortiz M.D. 07/16/2024 4:04 PM (1) Chest pain Chest pain type: unspecified Qualified Code(s): R07.9 - Chest pain, unspecified (3) Hyperlipidemia Hyperlipidemia type: mixed hyperlipidemia Qualified Code(s): E78.2 - Mixed hyperlipidemia (4) Hypothyroidism Hypothyroidism type: acquired Qualified Code(s): E03.9 - Hypothyroidism, unsp ecified (5) Asthma Asthma severity: moderate Asthma persistence: unspecified Asthma complication type: unspecified Qualified Code(s): J45.909 - Unspecified asthma, uncomplicated
--- NOTE | 2024-07-16 17:54 | Emergency Department Note ---
History of Present Illness General Chief Complaint: Chest Pain Stated Complaint: CHEST PAINS Time Seen by Provider: 07/16/24 15:47 History of Present Illness Provider Complaint: chest pain Onset (ago): hour(s) 3 Duration: constant Pain Location: substernal Pain Radiation: neck Severity: moderate Maximum Pain Intensity: 9 Current Pain Intensity: 5 Quality: + aching, + heaviness and + dull Relieved By: + nothing Exacerbated By: + nothing Context: no recent illness, no recent surgery, no recent immobilization, no recent travel, no trauma/injury, no new medications or no history of DVT/PE Associated symptoms: no nausea, no vomiting, no diaphoresis, no dyspnea, no syncope, no palpitations, no fever, no cough or no leg swelling Home Medications Medication Instructions Recorded Confirmed Type albuterol sulfate 90 mcg/actuation 2 puffs inhalation Q4H PRN 06/08/19 08/13/23 History aerosol inhaler cough,sob,wheezing #1 g cyanocobalamin (vitamin B-12) 1,000 mcg PO QAM #90 tabs 06/08/19 08/21/23 History 1,000 mcg tablet beclomethasone dipropionate 80 2 inh inhalation BID 09/02/20 08/21/23 History mcg/actuation HFA breath activated aerosol (Qvar RediHaler) cholecalciferol (vitamin D3) 25 25 mcg PO QAM 09/02/20 08/21/23 History mcg (1,000 unit) chewable tablet (Vitamin D3) levothyroxine 75 mcg tablet 75 mcg PO QAM 09/02/20 08/21/23 History sertraline 50 mg tablet 100 mg PO QAM 09/02/20 08/21/23 History amlodipine 2.5 mg tablet 2.5 mg PO QAM 08/13/23 08/21/23 History cyclosporine 0.05 % eye drops 1 drp ophthalmic (eye) Q12H 08/13/23 08/13/23 History diphenhydramine HCl 25 mg capsule 25 mg PO TID PRN Allergic Reaction 08/13/23 08/13/23 History (Benadryl) epinephrine 0.1 mg/0.1 mL 0.1 mg IM UD PRN Anaphylaxis 08/13/23 08/13/23 History injection, auto-injector erythromycin 5 mg/gram (0.5 %) eye 1 applic ophthalmic (eye) UD 08/13/23 08/13/23 History ointment guar gum 2 tbsp PO QAM 08/13/23 08/21/23 History linaclotide 72 mcg capsule 72 mcg PO QAM 08/13/23 08/21/23 History (Linzess) omeprazole 20 mg tablet,delayed 20 mg PO QAM 08/13/23 08/21/23 History release rosuvastatin 10 mg tablet (Crestor) 10 mg PO QAM 08/13/23 08/21/23 History Allergies Allergy/AdvReac Type Severity Reaction Status Date / Time Sulfa (Sulfonamide Allergy Severe HIVES, Verified 08/21/23 09:52 Antibiotics) SWELLING atorvastatin Allergy Intermediate REDNESS,ITCHY Verified 08/21/23 09:52 RASH azithromycin Allergy Intermediate Redness of Verified 08/21/23 09:52 Skin, heart racing bee venom protein (honey bee) Allergy Intermediate WHEEZING,ITCHY Verified 08/21/23 09:52 EYES, REDNESS doxycycline Allergy Intermediate REDMITCHY Verified 08/21/23 09:52 HIVES, THROAT SWELLS niacin Allergy Intermediate UNKNOWN TO Verified 08/21/23 09:52 PT-REDNESS? pollen extracts Allergy Intermediate POLLEN,TREES, Verified 08/21/23 09:52 DUST MITES-ITCHY EYES WHEEZING propofol Allergy Intermediate LOW Verified 08/21/23 09:52 BP,"WENT OUT"-BLACKED OUT terfenadine Allergy Intermediate HEART Verified 08/21/23 09:52 PALPITATIONS lisinopril Allergy Unknown angioedema Verified 08/21/23 09:52 possibly related to lisinopril ranitidine AdvReac Intermediate headache Verified 08/21/23 09:52 sulfamethoxazole AdvReac Intermediate GI UPSET Verified 08/21/23 09:52 [From Bactrim] trimethoprim [From Bactrim] AdvReac Intermediate GI UPSET Verified 08/21/23 09:52 red beets Allergy Severe Anaphylaxis Uncoded 08/13/23 11:40 Aromatic Oils Allergy Intermediate ANY Uncoded 08/13/23 11:38 MAKE-UP,PERFUMES, COSMETICS-ITCHY EYES,WHEEZING Past Med/Surg History Problem List (Updated 07/16/24 @ 17:54 by Dick Reveles MD) Chest pain (Acute) Encounter for diagnostic colonoscopy due to change in bowel habits Encounter for pre-operative examination History of eye surgery Hyperlipidemia (Chronic) Osteoarthritis, multiple sites (Chronic) Generalized anxiety disorder (Chronic) Asthma (Chronic) Acute sinus infection (Acute) Left-sided weakness Hematochezia Nausea vomiting and diarrhea (Acute) Generalized weakness Depression with anxiety HTN (hypertension) History of oral surgery Hypothyroidism (Chronic) IBS (irritable bowel syndrome) (Chronic) Anemia (Chronic) GERD (gastroesophageal reflux disease) (Chronic) Lumbar stenosis with neurogenic claudication Medical History Nonrheumatic tricuspid (valve) insufficiency Nonrheumatic aortic (valve) insufficiency Umbilical hernia Ambulatory dysfunction uses walker Asthma well controlled, no asthma attacks in the last 2 years per pt History of anesthesia reaction cardiac arrest after her multiple colonoscopies at [facility] because she was given too much medication and states she is "sensitive to medications". Did not have complications at last colonoscopy per pt. States "no anesthesia allergy, just sensitive to it". Surgical History History of D&C History of section History of laryngoscopy has "polyps" present History of bronchoscopy History of discectomy Dr Reese, details unknown by pt History of cataract surgery bilateral History of colonoscopy Family History Unknown Gastric cancer Schizophrenia Sister Crohn's disease Brother Schizophrenia Lung cancer Son Myocardial infarction Daughter Breast cancer Mother Myocardial infarction Cancer Father Lung cancer Cancer Grandmother (Maternal) Heart trouble Aunt Convulsion Social History Smoking Status: Never smoker Tobacco Type: Cigarettes Second Hand Exposure: No; Do You Dip or Chew Tobacco: No; Hx Alcohol Use: No Hx Substance Use: No Preferred Language: Syrian Communication Ability: 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 Beliefs That Will Affect Care: None Current Living Situation: Alone Feels Safe at Home: Yes Assistive Devices: Denture - Upper, Glasses and Walker Physical Exam Vital Signs Vital Signs - 24 hr 07/16/24 15:34 07/16/24 15:55 07/16/24 16:16 Temperature 36.6 C Temperature Source Temporal Artery Scan Pulse Rate 71 67 69 Pulse Rate [Apical] Pulse Rhythm Regular Respiratory Rate 18 20 Respiratory Effort / Characteristics Non-Labored Spontaneous Respiratory Depth Normal Respiratory Pattern Regular Blood Pressure 193/72 H Blood Pressure [Right Arm] Blood Pressure Mean 112 Blood Pressure Mean [Right Arm] Pulse Oximetry 98 97 Oxygen Delivery Method Room Air Room Air Sepsis Recent Fever Within 48 Hours No Sepsis New/Unexplained Change in Mental Status No Sepsis Action Taken by Nursing No Action Required 07/16/24 16:24 07/16/24 16:24 Temperature Temperature Source Pulse Rate Pulse Rate [Apical] 68 Pulse Rhythm Respiratory Rate 22 Respiratory Effort / Characteristics Respiratory Depth Respiratory Pattern Blood Pressure Blood Pressure [Right Arm] 137/71 Blood Pressure Mean Blood Pressure Mean [Right Arm] 93 Pulse Oximetry 93 Oxygen Delivery Method Room Air Room Air Sepsis Recent Fever Within 48 Hours Sepsis New/Unexplained Change in Mental Status Sepsis Action Taken by Nursing Physical Exam GENERAL: oriented to person, place, and time. appears well-developed and well- nourished. HENT: Exam performed. - Head: Normocephalic and atraumatic. EYES: Conjunctivae and EOM are normal. Right eye exhibits no discharge. Left eye exhibits no discharge. No scleral icterus. NECK: Normal range of motion. Neck supple. No JVD present. CV: Normal rate, regular rhythm, normal heart sounds and intact distal pulses. There is no peripheral edema. Palpable radial pulses bue. PULM/CHEST: Effort normal and breath sounds normal. No respiratory distress. No stridor. no wheezes. no rales. ABD: The abdomen is soft. There is no tenderness. NEURO: Motor and sensation grossly intact. SKIN: Skin is warm and dry. He is not diaphoretic. PSYCH: normal mood and affect. Behavior is normal. Judgment and thought content normal. Course Course 1547: The patient was evaluated in room C7. A complete history and physical exam was performed Cardiac monitoring: An order was placed for continuous cardiac monitoring. The monitor shows a rate of 70 with sinus rhythm interpreted by me 1655: Vital signs stable. Labs and imaging are unremarkable. On reassessment the patient reports her chest pain is completely resolved with 1 sublingual nitroglycerin. [facility] Administered Medications Sodium Chloride (Nss) 500 mls @ 125 mls/hr IV .Q4H TAI Stop: 08/15/24 15:59 Last Admin: 07/16/24 16:15 Dose: 125 mls/hr Documented By: MAT Nitroglycerin (Nitroglycerin Sl 0.4 Mg/Tab Tab) 0.4 mg SL Q5M PRN PRN Reason: Chest Pain Stop: 08/15/24 15:58 Last Admin: 07/16/24 16:16 Dose: 0.4 mg Documented By: MAT Discontinued Medications Aspirin (Aspirin Chew 324 Mg) 324 mg PO NOW STA Stop: 07/16/24 15:48 Last Admin: 07/16/24 15:53 Dose: 324 mg Documented By: PENNY Medical Decision Making Laboratory Data Attestation: I reviewed the patient's lab results. 07/16/24 15:50 07/16/24 15:50 Labs: Lab Results 07/16/24 Range/Units 15:50 WBC 11.40 H (4.8-10.8) K/ul RBC 4.63 (4.20-5.40) M/uL Hgb 14.7 (12.0-16.0) g/dl Hct 42.1 (37.0-47.0) % MCV 90.9 (80.0-100.0) fL MCH 31.7 (25.0-34.0) pg MCHC 34.9 (32.0-36.0) g/dL RDW Std Deviation 41.1 (36.4-46.3) fL RDW Coeff of Saroj 12.3 (11.5-14.5) % Plt Count 174 (130-400) K/uL MPV 10.3 (9.4-12.4) fL Immature Gran % (Auto) 0.5 % Neut % (Auto) 69.3 % Lymph % (Auto) 20.4 % [place] % (Auto) 8.6 % Eos % (Auto) 0.8 % Baso % (Auto) 0.4 % Neut # (Auto) 7.90 H (1.40-6.50) K/uL Lymph # (Auto) 2.32 (1.20-3.40) K/uL [place] # (Auto) 0.98 H (0.11-0.59) K/uL Eos # (Auto) 0.09 (0.00-0.50) K/uL Baso # (Auto) 0.05 (0.00-0.20) K/uL Immature Gran # (Auto) 0.06 (0.01-0.20) K/uL PT 10.7 (9.0-12.0) Seconds INR 1.0 (0.9-1.1) APTT 25 (21-31) Seconds PTT Ratio 0.9 Sodium 137 (136-145) mmol/L Potassium 3.6 (3.5-5.1) mmol/L Chloride 104 (98-107) mmol/L Carbon Dioxide 27 (21-32) mmol/L Anion Gap 6 (3-11) BUN 11 (6-23) mg/dl Creatinine 0.77 (0.6-1.2) mg/dl Est Cr Clr Drug Dosing 56.6 ml/min Est GFR ( Amer) 82.2 ml/min Est GFR (Non-Af Amer) 70.9 ml/min BUN/Creatinine Ratio 14.3 (10-20) Glucose 93 (70-99(Fasting)) mg/dl Calcium 9.4 (8.6-10.3) mg/dl Troponin I High Sens 11.0 (0-14) pg/ml Lipase 26 (11-82) U/L ECG Data Attestation: I personally reviewed and interpreted this ECG as follows: Indication: chest pain Rate (beats per minute): 66 Rhythm: normal sinus Findings: + 1st degree AV block; no ST depression, no ST elevation or no prolonged QT MDM Narrative 1547: The patient was evaluated in room C7. A complete history and physical exam was performed Cardiac monitoring: An order was placed for continuous cardiac monitoring. The monitor shows a rate of 70 with sinus rhythm interpreted by me 1655: Vital signs stable. Labs and imaging are unremarkable. On reassessment the patient reports her chest pain is completely resolved with 1 sublingual nitroglycerin. Patient will be admitted to [facility] hospitalist team. Impression & Plan Chest pain Discharge Plan Visit Data Chief Complaint: Chest Pain Stated Complaint: CHEST PAINS ED Provider: Dick Reveles Discharge Problem: Chest pain Patient Disposition: Being Evaluated by Hospitalist Forms Stand Alone Forms: My [facility] Prescriptions Prescriptions: No Action albuterol sulfate 90 mcg/actuation HFA aerosol inhaler 2 puffs inhalation Q4H PRN (Reason: cough,sob,wheezing) Qty: 1 cyanocobalamin (vitamin B-12) 1,000 mcg tablet 1,000 mcg PO QAM Qty: 90 levothyroxine 75 mcg tablet 75 mcg PO QAM sertraline 50 mg tablet 100 mg PO QAM cholecalciferol (vitamin D3) [Vitamin D3] 25 mcg (1,000 unit) Tablet,Chewable 25 mcg PO QAM Qvar RediHaler 80 mcg/actuation HFA aerosol breath activated 2 inh INHALATION BID amlodipine 2.5 mg Tablet 2.5 mg PO QAM guar gum Packet 2 tbsp PO QAM Rx Instructions: mix into at least 8 oz of water or juice before administering erythromycin 5 mg/gram (0.5 %) Ointment 1 applic OPHTHALMIC (EYE) UD diphenhydramine HCl [Benadryl] 25 mg Capsule 25 mg PO TID PRN (Reason: Allergic Reaction) rosuvastatin [Crestor] 10 mg Tablet 10 mg PO QAM omeprazole 20 mg Tablet,Delayed Release (Dr/Ec) 20 mg PO QAM cyclosporine 0.05 % Drops 1 drp OPHTHALMIC (EYE) Q12H Linzess 72 mcg Capsule 72 mcg PO QAM epinephrine 0.1 mg/0.1 mL Auto-Injector 0.1 mg IM UD PRN (Reason: Anaphylaxis) Referrals Referrals: Alycia Terry DO [Primary Care Provider] - Discharge Problem: Chest pain Qualifiers: Chest pain type: unspecified Qualified Code(s): R07.9 - Chest pain, unspecified
[2024-07-16] MEDS: SODIUM CHLORIDE 0.9% 500 ML IV ONE (18:29)
[2024-07-16] MEDS ORDERED: POLYETHYLENE (MIRALAX) 17 GM PACK PO PRN (20:54)
[2024-07-16] MEDS ORDERED: NITROGLYCERIN SL 0.4 MG/TAB TAB SL PRN (20:54)
[2024-07-16] MEDS ORDERED: ONDANSETRON INJ 2 MG/ML 2 ML VIAL IV PRN (20:54)
--- OUTSIDE RECORDS SUMMARY | 2024-07-16 21:12 | External Medical Summary | Summary of Care ---
Author Name Unknown Organization [facility] Address [address] [place] [address] Phone [phone] Care Team Providers Care Blockmason Name Role Phone Alycia Terry DO Primary Care Provider Reason for Visit * Reason Onset Date Comments Test Results 02/13/2024 Encounter Details Date Type Department Care Team (Late st Contact Info) Description 02/13/2024 Telephone Cardiology, [facility] [address] [place] [address] Reva [facility]el CR[facility] [address] [facility] [address] Test Results (/) Allergies Active Allergy Reactions Criticality Noted Date Comments Azithromycin 02/06/2009 Had zithromax 09/2011; Dr. Cruz, no reaction noted. Doxycycline Rash 08/16/2020 Atorvastatin Calcium 03/08/2014 Turned "Beet red" Lisinopril Edema face/lips/tongue,Hi ves High 09/08/2020 Niacin Hives 08/16/2020 Propofol Other (Please comment) High 06/09/2017 Cardiac arrest Ranitidine High 02/11/2022 Other reaction(s): headache Terfenadine 08/10/2007 Heart palpatations Sulfa Antibiotics Hives,Rash 09/04/2007 Sulfamethoxazole-Trime thoprim Hives 08/16/2020 Terfenadine High 02/11/2022 Other reaction(s): HEART PALPITATIONS Trimethoprim High 02/11/2022 Other reaction(s): GI UPSET documented as of this encounter (statuses as of 02/13/2024) Medications Medication Sig Dispensed Refills Start Date End Date Status Cyanocobalamin 1000 MCG Oral Tablet Take 1 Tablet by mouth in the morning. 30 Tab 0 07/14/2015 Active Cholecalciferol 25 MCG (1000 UT) Oral Tablet Disintegrating Take by mouth. 0 Active diphenhydrAMINE HCl 25 MG Oral Tablet (BENADRYL) Take 2 tablets every 4-6 hours as needed for severe itching and hives 30 Tab 0 09/07/2020 Active Benefiber Oral Powder Take by mouth daily . 0 Active Qvar RediHaler 80 MCG/ACT Inhalation Aerosol Breath Activated (Beclomethasone Diprop HFA) USE 2 INHALATIONS TWICE A DAY 31.8 g 2 05/31/2023 Active EpiPen 2-Ra 0.3 MG/0.3ML Injection Solution Auto-injector For a severe reaction: Place orange end against the outer thigh, press firmly, hold in place for 10 seconds and go to the Emergency room. 2 Each 0 05/30/2023 Active Additional Information Patient not taking.Reported on 09/10/2023 amLODIPine Besylate 2.5 MG Oral Tablet (Norvasc) Take 1 Tablet by mouth in the morning. In the morning.. 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 0 Active Erythromycin 5 MG/GM Ophthalmic Ointment Use as directed. 0 08/13/2023 Active Guar Gum Powder DAILY IN THE MORNING 0 08/13/2023 Active Albuterol Sulfate HFA 108 (90 Base) MCG/ACT Inhalation Aerosol Solution Inhale 2 Puffs by mouth every 4 hours as needed for Cough, Shortness of Breath or Wheezing. 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 Vitamin D deficiency 06/05/2009 documented as of this encounter (statuses as of 02/13/2024) Resolved Problems Problem Noted Date Diagnosed Date Resolved Date LVH (left ventricular hypertrophy) 11/19/2022 01/10/2023 Recurrent major depressive d isorder, in partial remission 11/22/2021 01/10/2023 Class 2 severe obesity due t o excess calories with serious comorbidity and body mass index (BMI) of 36.0 to 36.9 in adult 11/22/2021 3 Dry eyes, bilateral 08/03/2018 01/11/20 23 Seborrheic dermatitis 08/03/20182022 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 0111/18/20162022 Recurrent sinusitis 03/11/2013 01/11/20 23 Allergic rhinitis 11/18/2011 01/10/2023 Abdominal pain, epigastric 02/05/2010 0 06/11/2011 Obesity, Class I, BMI 30.0-3 4.9 (see actual BMI) 01/25/2010 01/10/2023 Overview: Per Obesity Taxonomy Asthma with severity to be determined 06/06/2009 06/11/2010 Overview: ICD-10 update of inactive term Esophageal reflux 06/06/2009 11/18/2011 Obesity, BMI not known 06/05/200901/25 Overview: Per Obesity Taxonomy Mixed dyslipidemia 08/22/2008 12/200 9 Overview: Per Lipid Taxonomy. 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) 09/04/2007 06/06/2009 Swelling, mass, or lump in head and neck 09/04/2007 01/10/2023 documented as of this encounter (statuses as of 02/13/2024) Immunizations Name Administration Dates Next Due COVID-19 mRNA, LNP-s, No Pre serve, 2-Dose Series (Fyber) 10/22/2022,10/20/2021,03/24/2021,05/0 11/2020 H1N1 2009 Influenza, IM 11/23/2009 PPD 06/24/2018, 7,05/01/2016,04/03 Pneumococcal Conjugate Vacc, 13 Valent (Prevnar) 05/15/2020,08/14/2016 Pneumococcal Polysaccharide PPV23 (Pneumovax) 11/30/2012,11/03/2005 Season Influenza, Quad, PF, Adjuvanted, 65+ Yrs, IM (FLUAD) 07/18/2020 Seasonal Influenza Virus Vac cine, Unspecified Formulation 07/21/2023,08/23/2022,07/15/2018,08/03,09/18/2016,09/17/2016,08/04/20 14,08/02/2014,09/06/2013 Seasonal Influenza, PF, 6 M & above, IM , (FluLaval or Fluzone) 08/17/2021,08/09/2021,07/18/2020,07/04,08/14/2017,09/18/2016,09/17/20 16,08/04/2014,08/02/2014,09/06/2013 Seasonal Influenza, Quadriva lent Hd (Fluzone Hd) 07/21/2023,08/23/2022 Seasonal Influenza, Quadriva lent, No Preserve, IM 09/17/2016 Seasonal Influenza, Split, I IV3, With Preserve, Inj 07/14/2015,08/02/2014,09/06/2013 07/14/2016 Seasonal Influenza, Trivalen t, Adjuvanted, 65+ yrs 08/17/2021,08/13/2019 TD, Preservative Free 07/12/2008 TDAP (age 10 and older)(Boostrix) 12/29/2020 Zoster Vaccine Recombinant (Shingrix) 01/13/2021 ,01/01/2021,08/09/2020 documented as of this encounter Social History Tobacco Use Types Packs/Day Years Used Date Smoking Tobacco: Former Cigarettes 1 25 0 11/03/1975 - 11/03/2000 Smokeless Tobacco: Never Comments:quit 2000, previous ly 1ppd x 25 yrs Alcohol Use Standard Drinks/Week Comments No 0 (1 standard drink = 0.6 oz pur e alcohol) PHQ-2 Answer Date Recorded PHQ-2 Score 0 09/07/2020 Sex and Gender Information Value Date Recorded Sex Assigned at Not on file Gender Identity Not on file Sexual Orientation Not on file Job Start Date Occupation Industry Not on file Not on file Not on file documented as of this encounter Miscellaneous Notes * Telephone Encounter - Diana Lopez LPN - 02/13/2024 4:05 PM EDT Pt notified via phone and states understanding. * Telephone Encounter - Diana Lopez LPN - 02/13/2024 4:03 PM EDT ----- Message from TRICIA Martinez sent at 02/13/2024 2:14 PM EDT ----- Please notify patient that her Echocardiogram is good. Continues to show a normal heart pump function and only mild leakage of the aortic valve. Unchanged from prior. Not the cause of her dizziness. We will plan to repeat in 1-2 years. Continue current medications Interpretation Summary The examination is adequate to evaluate the referral indication. The LV wall thickness is mildly increased (concentric). The left ventricular wall motion is normal. The left ventricular systolic function is normal. Calculated LV ejection Fraction = 65% (bi-plane method of discs). The left ventricular diastolic function is mildly abnormal (grade I). The aortic valve has three leaflets. Aortic stenosis is absent. Mild aortic valve regurgitation is present. documented in this encounter Plan of Treatment Upcoming Encounters Date Type Department Care Team (Late st Contact Info) Description 03/01/2024 2:00 PM EDT Office Visit Cardiology, [facility] [address] [place] [address] Reva Patel CRNP [address] [place] [address] 05/28/2024 10:20 AM EDT Office Visit Family Practice [facility] [address] [facility] [place] [address] Alycia Terry DO [address] [facility] [place] [address] 09/06/2024 11:00 AM EST Office Visit Allergy/Immunology [facility] [place] [address] [facility] [place] [address] Jenna Romero PA-C [address] [facility] [place] [address] Scheduled Procedures Name Priority Associated Diagnoses Date/Ti me COLONOSCOPY FLEXIBLE PROXIMA L DIAGNOSTIC Recall History of colonic polyps Health Maintenance Due Date Last Done Comments Albumin/Creatinine Ratio 1958 COVID-19 Vaccine (2022- season) 2023 10/22/2022, 10/20/2021, 03/24/2021, Additional history exists GFR 09/16/2024 09/16/2023, 05/2022, 02/04/2022, Additional history exists TSH 09/16/2024 09/16/2023, 11/0 05/2022, 02/04/2022, Additional history exists DXA Scan 06/14/2027 06/14/2020 COLONOSCOPY-EVERY 5 YRS AGES 18-100 08/21/2028 08/21/2023, 03/30/2010 DTaP,Tdap,and Td Vaccines (2 - Td or Tdap) 12/29/2030 12/29/2020, 07/12/2008 Pneumococcal Vaccine: 65+ Years Completed 05/15/2020, 08/14/2016, 11/30/2012, Additional history exists Zoster Vaccines Completed 01/13/2021, 0311/2020, 08/09/2020 Influenza Vaccine (FLU shot) Completed , 07/21/2023, 08/23/2022, Additional history exists GARDASIL-HPV IMMUNIZATION SERIES Aged Out No longer eligible based on patient's age to complete this topic Hepatitis B Aged Out No longer eligi ble based on patient's age to complete this topic MENINGOCOCCAL (MENACTRA/MENVEO) Aged Out No longer eligible based on patient's age to complete this topic documented as of this encounter Medical Devices Implanted Type Area Chief Medical Technologist Device Identifier Shelf Expiration Date Model / Serial / Lot Lens 24.0 Mx60 - [id number] - [id number] Implanted:Qty: 1 on 06/18/2017 by Dom Sullivan MD at OR [facility] Right: Eye [employer] : SURGICAL 12/03/2019 MX60-24.0 / [id number] / [id number] Lens 23.5 Mx60 - [id number] - [id number] Implanted:Qty: 1 on 07/23/2017 by Dom Sullivan MD at OR [facility] Left: Eye [employer] : SURGICAL 12/03/2019 MX60-23.5 / [id number] / [id number] documented as of this encounter Advance Directives Latest Code Status on File Code Status Date Activated Date Inactivated Comments Full Code 07/23/2017 9:46 AM 07/23/2017 2:12 PM This order reflects the patients wishes and were consensually agreed upon. Code Status History Code Status Date Activated Date Inactivated Comments Full Code 07/23/2017 8:14 AM 07/23/2017 9:46 AM This order reflects the patients wishes and were consensually agreed upon. Full Code 06/18/2017 8:32 AM 06/18/2017 2:46 PM This order reflects the patients wishes and were consensually agreed upon. Full Code 09/09/2008 4:23 PM 09/10/2008 7:13 PM Care Teams Blockmason Relationship Specialty Start Date End Date Alycia Terry DO [address] [place] [address] PCP - General Family Medicine 05/18/20 documented as of this encounter
--- OUTSIDE RECORDS SUMMARY | 2024-07-16 21:12 | External Medical Summary | Summary of Care ---
Author Name Unknown Organization [facility] Address [address] [place] [address] Phone [phone] Care Team Providers Care Trenching Machine Operator Name Role Phone Alycia Terry DO Primary Care Provider Reason for Visit * Reason Comments eRx-Medication Refill Encounter Details Date Type Department Care Team (Late st Contact Info) Description 04/26/2024 Refill Allergy/Immunology [facility] [place] [address] [place] [address] Yvette Sawant MD [address] [place] [address] Allergies Active Allergy Reactions Criticality Noted Date [...] as of this encounter (statuses as of 04/26/2024) Medications Medication Sig Dispensed Refills Start Date End Date Status Cyanocobalamin 1000 MCG Oral Tablet Take 1 Tablet by mouth in the morning. 30 Tab 0 5 Active Cholecalciferol 25 MCG (1000 UT) Oral Tablet Disintegrating Take by mouth. Active diphenhydrAMINE HCl 25 MG Oral Tablet (BENADRYL) Take 2 tablets every 4-6 hours as needed for severe itching and hives 30 Tab 0 Active Benefiber Oral Powder Take by mouth daily . Active EpiPen 2-Ra 0.3 MG/0.3ML Injection Solution Auto-injector For a severe reaction: Place orange end against the outer thigh, press firmly, hold in place for 10 seconds and go to the Emergency room. 2 Each 3 Active Additional Information Patient not taking.Reported on 09/10/2023 amLODIPine Besylate 2.5 MG Oral Tablet (Norvasc) Take 1 Tablet by mouth in the morning. In the morning.. 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 Active Erythromycin 5 MG/GM Ophthalmic Ointment Use as directed. 3 Active Albuterol Sulfate HFA 108 (90 Base) MCG/ACT Inhalation Aerosol Solution Inhale 2 Puffs by mouth every 4 hours as needed for Cough, Shortness of Breath or Wheezing. 54 g 2 4 Active Rosuvastatin Calcium 10 MG Oral Tablet (Crestor)Indication s:Dyslipidemia TAKE 1 TABLET IN THE MORNING 90 Tablet 3 4 Active Omeprazole 20 MG Oral Capsule Delayed Release (PriLOSEC) TAKE 1 CAPSULE IN THE MORNING 90 Capsule 3 4 Active Qvar RediHaler 80 MCG/ACT Inhalation Aerosol Breath Activated (Beclomethasone Diprop HFA) USE 2 INHALATIONS TWICE A DAY 31.8 g 3 4 Active Qvar RediHaler 80 MCG/ACT Inhalation Aerosol Breath Activated (Beclomethasone Diprop HFA) USE 2 INHALATIONS TWICE A DAY 31.8 g 2 3 04/26/20 24 Discontinued documented as of this encounter (statuses as of 04/26/2024) Active Problems Problem Noted Date Diagnosed Date [...] as of this encounter (statuses as of 04/26/2024) Resolved Problems Problem Noted Date Diagnosed Date [...] Overview: Per Obesity Taxonomy Mixed dyslipidemia 08/22/2008 9 Overview: Per Lipid Taxonomy. 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) 09/04/2007 06/06/2009 Swelling, mass, or lump in head and neck 09/04/2007 01/10/2023 documented as of this encounter (statuses as of 04/26/2024) Immunizations Name Administration Dates Next Due COVID-19 mRNA, LNP-s, No Pre serve, 2-Dose Series (Anavex) 10/22/2022,10/20/2021,03/24/2021,05/0 11/2020 H1N1 2009 Influenza, IM 11/23/2009 [...] encounter Miscellaneous Notes * Telephone Encounter - Yvette Sawant MD - 04/26/2024 7:39 AM EDTSigned Prescriptions: Disp Refills Qvar RediHaler 80 MCG/ACT Inhalation Aeros*31.8 g 3 Sig: USE 2 INHALATIONS TWICE A DAY Authorizing Provider: YVETTE SAWANT * Telephone Encounter - Elisa Sweeney LPN - 04/26/2024 7:05 AM EDT Pending Prescriptions: Disp Refills Qvar RediHaler 80 MCG/ACT Inhalation Aeros*31.8 g 3 Sig: USE 2 INHALATIONS TWICE A DAY * Telephone Encounter - Elisa Sweeney LPN - 04/26/2024 7:05 AM EDT Pending Prescriptions: Disp Refills Qvar RediHaler 80 MCG/ACT Inhalation Aero*31.8 g 3 Sig: USE 2 INHALATIONS TWICE A DAY Last Visit: 09/03/2023 (in office), 09/29/2020 (telemedicine) Next Visit: 09/06/2024 Last date the medication was ordered: 05/31/23 Health Maintenance Topic Date Due Albumin/Creatinine Ratio Never done Depression Monitoring 09/07/2021 COVID-19 Vaccine (2022- season) 2023 TSH 09/16/2024 GFR 03/01/2025 DXA Scan 06/14/2027 Colonoscopy 08/21/2028 DTaP,Tdap,and Td Vaccines (2 - Td or Tdap) 12/29/2030 Influenza Vaccine (FLU shot) Completed Zoster Vaccines Completed Pneumococcal Vaccine: 65+ Years Completed Hepatitis B Aged Out MENINGOCOCCAL (MENACTRA/MENVEO) Aged Out GARDASIL-HPV IMMUNIZATION SERIES Aged Out RETIRED - COLONOSCOPY-EVERY 5 YRS AGES 18-100 Discontinued Labs: Lab Results Component Value Date/Time CREATININE - [facility] 0.8 03/01/2024 02:46 PM CREATININE - [facility] 0.8 09/07/2020 12:01 PM CREATININE, RANDOM URINE - [facility] 187 09/16/2023 10:18 AM CREATININE, RANDOM URINE - [facility] 26 05/15/2020 01:15 PM Lab Results Component Value Date/Time POTASSIUM - [facility] 4.1 03/01/2024 02:46 PM POTASSIUM - [facility] 4.0 09/07/2020 12:01 PM Lab Results Component Value Date/Time TSH - [facility] 2.97 09/16/2023 10:16 AM TSH - [facility] 1.45 09/07/2020 12:01 PM Lab Results Component Value Date/Time LDL CHOLESTEROL (CALCULATED) - [facility] 106 09/16/2023 10:16 AM LDL CHOLESTEROL (CALCULATED) - [facility] 110 09/09/2022 09:37 AM LDL CHOLESTEROL (CALCULATED) - [facility] 115 05/15/2020 01:15 PM LDL CHOLESTEROL (DIRECT MEASURE) - [facility] NOT APPLICABLE 05/15/2020 01:15 PM Lab Results Component Value Date/Time ALT - [facility] 20 09/09/2022 09:37 AM ALT - [facility] 29 05/15/2020 01:15 PM Hemoglobin AIC Results: Lab Results Component Value Date/Time HEMOGLOBIN A1C - [facility] 5.6 02/04/2022 10:55 AM documented in this encounter Plan of Treatment Upcoming Encounters Date Type Department Care Team (Late st Contact Info) Description 05/28/2024 10:20 AM EDT Office Visit Family Practice [facility] [address] [facility] [address] Alycia Terry DO [address] [facility] [place] [address] 09/06/2024 11:00 AM EST Office Visit Allergy/Immunology [facility] [address] [facility] [place] [address] Jenna Romero PA-C [address] [place] [address] 09/13/2024 1:30 PM EST Office Visit Cardiology, [facility] [address] [place] [address] Reva Patel CRNP [address] [place] [address] Scheduled Procedures Name Priority Associated Diagnoses Date/Ti me COLONOSCOPY FLEXIBLE PROXIMA L DIAGNOSTIC Recall History of colonic polyps Health Maintenance Due Date Last Done Comments Albumin/Creatinine Ratio 1958 Depression Monitoring 09/07/2021 09/07/2020 COVID-19 Vaccine ( season) 2023 10/22/2022, 10/20/2021, 03/24/2021, Additional history exists TSH 09/16/2024 09/16/2023, 05/2022, 02/04/2022, Additional history exists GFR 03/01/2025 03/01/2024, 09/03, 09/09/2022, Additional history exists DXA Scan 06/14/2027 06/14/2020 Colonoscopy 08/21/2028 08/21/2023, 03/30/2010 DTaP,Tdap,and Td Vaccines (2 - Td or Tdap) 12/29/2030 12/29/2020, 07/12/2008 Pneumococcal Vaccine: 65+ Years Completed 05/15/2020, 08/14/2016, 11/30/2012, Additional history exists Zoster Vaccines Completed 01/13/2021, 11/2020, 08/09/2020 Influenza Vaccine (FLU shot) Completed 07/21/2023, 07/21/2023, 08/23/2022, Additional history exists RETIRED - COLONOSCOPY-EVERY 5 YRS AGES 18-100 Discontinued 08/21/2023, 03/30/2010 GARDASIL-HPV IMMUNIZATION SERIES Aged Out No longer eligible based on patient's age to complete this topic Hepatitis B Aged Out No longer eligi ble based on patient's age to complete this topic MENINGOCOCCAL (MENACTRA/MENVEO) Aged Out No longer eligible based on patient's age to complete this topic documented as of this encounter Medical Devices Implanted Type Area Music Education Adjunct Professor Device Identifier Shelf Expiration Date Model / Serial / Lot Lens 24.0 Mx60 - [id number] - [id number] Implanted:Qty: 1 on 06/18/2017 by Dom Sullivan MD at OR [facility] Right: Eye [employer] : SURGICAL 12/03/2019 MX60-24.0 / [id number] / [id number] Lens 23.5 Mx60 - [id number] - [id number] Implanted:Qty: 1 on 07/23/2017 by Dom Sullivan MD at OR [facility] Left: Eye [employer] : SURGICAL 12/03/2019 MX60-23.5 / [id number] / [id number] documented as of this encounter Advance Directives * Full Code (Latest Code Status on File) Date Activated Date Inactivated Comments 07/23/2017 9:46 AM 07/23/2017 2:12 PM This order r eflects the patients wishes and were consensually agreed upon. * Full Code Date Activated Date Inactivated Comments 07/23/2017 8:14 AM 07/23/2017 9:46 AM This order r eflects the patients wishes and were consensually agreed upon. * Full Code Date Activated Date Inactivated Comments 06/18/2017 8:32 AM 06/18/2017 2:46 PM This order r eflects the patients wishes and were consensually agreed upon. * Full Code Date Activated Date Inactivated Comments 09/09/2008 4:23 PM 09/10/2008 7:13 PM Care Teams Trenching Machine Operator Relationship Specialty Start Date End Date Alycia Terry DO [address] [place], [place] [address] PCP - General Family Medicine 05/18/20 documented as of this encounter
--- OUTSIDE RECORDS SUMMARY | 2024-07-16 21:12 | External Medical Summary | Summary of Care ---
Author Name Unknown Organization [facility] Address [address] [place] [address] Phone [phone] Care Team Providers Care Personnel Specialist Name Role Phone Alycia Terry DO Primary Care Provider Reason for Visit * Reason Comments Follow Up Encounter Details Date Type Department Care Team (Late st Contact Info) Description 03/01/2024 2:00 PM EDT Office Visit Cardiology, [facility] [address] [place] [address] [facility]el [facility] [address] [facility] [address] Nonrheumatic aortic valve insufficiency*; Varicose veins of both lower extremities with pain; Leg swelling; HTN, goal below 140/90; Dyslipidemia Allergies Active Allergy Reactions Criticality Noted Date [...] as of this encounter (statuses as of 03/01/2024) Medications Medication Sig Dispensed Refills Start Date [...] severe itching and hives 30 Tab 0 0 Active Benefiber Oral Powder Take by mouth daily . 0 Active Qvar RediHaler 80 MCG/ACT Inhalation Aerosol Breath Activated (Beclomethasone Diprop HFA) USE 2 INHALATIONS TWICE A DAY 31.8 g 2 3 Active EpiPen 2-Ra 0.3 MG/0.3ML Injection Solution Auto-injector For a severe reaction: Place orange end against the outer thigh, press firmly, hold in place for 10 seconds and go to the Emergency room. 2 Each 0 3 Active Additional Information Patient not taking.Reported [...] MG/GM Ophthalmic Ointment Use as directed. 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 Vitamin D deficiency 06/05/2009 documented as of this encounter (statuses as of 03/01/2024) Resolved Problems Problem Noted Date Diagnosed Date [...] as of this encounter (statuses as of 03/01/2024) Immunizations Name Administration Dates Next Due COVID-19 mRNA, LNP-s, No Pre serve, 2-Dose Series (In[employer] Med) 10/22/2022,10/20/2021,03/24/2021,0511/2020 H1N1 2009 Influenza, IM 11/23/2009 PPD 06/24/2018, [...] 0 11/03/1975 - 11/03/2000 Smokeless Tobacco: Never Tobacco Cessation:Counseling Given: Not Answered Comments:quit 2000, previously 1ppd x 25 yrs Alcohol Use Standard [...] on file documented as of this encounter Last Filed Vital Signs Vital Sign Reading Time Taken Comments Blood Pressure 138/90 03/01/2024 1:49 PM EDT Pulse 68 03/01/2024 1:49 PM EDT Temperature - - Respiratory Rate - - Oxygen Saturation 93% 03/01/2024 1:49 PM EDT Inhaled Oxygen Concentration - - Weight 85.3 kg (188 lb) 03/01/2024 1:49 PM EDT Height - - Body Mass Index 36.43 11/20/2023 1:49 PM EST documented in this encounter Progress Notes * Reva Patel CRNP - 03/01/2024 2:00 PM EDT 03/01/2024 Cardiology Follow Up Primary Nuclear Physics Professor: Dr. Villalba Cardiac Problems: Hypertension Angioedema with lisinopril Palpitations secondary to PACs/SVT Atypical chest pain Negative DSE 10/2022 HLD Anxiety Asthma with chronic cough Hx of abnormal EKG (per patient "flat line" during colonoscopy) Prompted workup by [facility] cardiology, 12/2019- ITA negative for inducible ischemia. Unremarkable resting echo HPI: Olivia Mckeon is a 83 year old female presents for routine cardiology follow up. Last seen in the office by the undersigned on 08/14/2023 with continued complaints of dizziness/lightheadedness with coughing spells. Routine resting echocardiogram was recommended to assess overall structure and function as well as for any progression of valvular disease. She presents today with ongoing concerns of increased painful varicose veins with increased leg swelling. She endorses cold toes in both feet. She also endorses left leg weakness with instability, but has chronic back concerns foot problems. Patient has compression stockings that she did not tolerate and is looking to get new ones. BP controlled. Patient also endorses increased urination and excessive thirst. Denies any UTI symptoms, but has endorsed recent recurrent vaginal yeast infection symptoms. No history of diabetes. Will check random glucose. Reports compliance on all medication therapies with no untoward effects. REVIEW OF SYSTEMS: See HPI for pertinent positives. All others negative other than those noted in the HPI. CONSTITUTIONAL: No change in weight, No weakness, No fatigue and No fevers, No sweats or chills. PULMONARY: No cough, sputum, or hemoptysis, No wheezing, No shortness or breath and No recent change in breathing. CARDIOVASCULAR: No chest pain, No dyspnea on exertion, No edema, No palpitations and No syncope. GASTROINTESTINAL: No abdominal pain, No change in bowel habits, No significant heartburn, No nausea, No vomiting, No diarrhea, No constipation, No blood in stools or black tarry stools. No dysphagia. HEMATOLOGIC: No abnormal bleeding and No bruising. NEUROLOGICAL: Normal balance, No headaches and No weakness. Review of patient's allergies indicates: Allergen Reactions Lisinopril Edema face/lips/tongue and Hives Propofol Other (Please comment) Cardiac arrest Ranitidine Other reaction(s): headache Terfenadine Other reaction(s): HEART PALPITATIONS Trimethoprim Other reaction(s): GI UPSET Azithromycin Had zithromax 09/2011; Dr. Cruz, no reaction noted. Doxycycline Rash Lipitor [Atorvastatin Calcium] Turned "Beet red" Niacin Hives Seldane [Terfenadine] Heart palpatations Sulfa Antibiotics Hives and Rash Sulfamethoxazole-Trimethoprim Hives Current Outpatient Medications Medication Sig Dispense Refill Cyanocobalamin 1000 MCG Oral Tablet Take 1 Tablet by mouth in the morning. 30 Tab 0 Cholecalciferol 25 MCG (1000 UT) Oral Tablet Disintegrating Take by mouth. diphenhydrAMINE HCl 25 MG Oral Tablet (BENADRYL) Take 2 tablets every 4-6 hours as needed for severe itching and hives 30 Tab 0 Benefiber Oral Powder Take by mouth daily . Qvar RediHaler 80 MCG/ACT Inhalation Aerosol Breath Activated (Beclomethasone Diprop HFA) USE 2 INHALATIONS TWICE A DAY 31.8 g 2 amLODIPine Besylate 2.5 MG Oral Tablet (Norvasc) Take 1 Tablet by mouth in the morning. In the morning.. 90 Tablet 3 Levothyroxine Sodium 75 MCG Oral Tablet (Levoxyl) TAKE 1 TABLET DAILY FIRST THING IN THE MORNING ATLEAST 30 MINUTES PRIOR TO BREAKFAST OR OTHER MEDICATIONS 90 Tablet 3 Sertraline HCl 50 MG Oral Tablet (Zoloft) TAKE 2 TABLETS IN THE MORNING 180 Tablet 3 Albuterol Sulfate HFA 108 (90 Base) MCG/ACT Inhalation Aerosol Solution Inhale 2 Puffs by mouth every 4 hours as needed for Cough, Shortness of Breath or Wheezing. 54 g 2 Rosuvastatin Calcium 10 MG Oral Tablet (Crestor) TAKE 1 TABLET IN THE MORNING 90 Tablet 3 Omeprazole 20 MG Oral Capsule Delayed Release (PriLOSEC) TAKE 1 CAPSULE IN THE MORNING 90 Capsule 3 EpiPen 2-Ra 0.3 MG/0.3ML Injection Solution Auto-injector For a severe reaction: Place orange end against the outer thigh, press firmly, hold in place for 10 seconds and go to the Emergency room. (Patient not taking: Reported on 09/10/2023) 2 Each 0 cycloSPORINE 0.05 % Ophthalmic Emulsion 1 Drop in the morning and 1 Drop before bedtime. (Patient not taking: Reported on 03/01/2024) Erythromycin 5 MG/GM Ophthalmic Ointment Use as directed. (Patient not taking: Reported on 03/01/2024) No current facility-administered medications for this visit. Past Medical History: Diagnosis Date Allergic rhinitis Amaurosis fugax of left eye Anemia Arthritis Asthma Asymmetrical left sensorineural hearing loss At risk for obstructive sleep apnea 01/11/2023 Carpal tunnel syndrome, bilateral Cervical radiculopathy at C8 Chest pain Chronic rhinitis Closed head injury Depression Depressive disorder, not elsewhere classified Dermatitis Diaphragmatic hernia Displacement of lumbar intervertebral disc without myelopathy Diverticulosis of colon Diverticulosis of colon Dyslipidemia 10/19/2009 Per Lipid Taxonomy. Dyslipidemia, goal to be determined Eczema Fatigue Frequent headaches GERD (gastroesophageal reflux disease) GERD (gastroesophageal reflux disease) History of abdominal pain History of Jiménez's esophagus History of dysphagia History of hemorrhoids History of sebaceous cyst History of tobacco use HTN, goal below 130/80 07/24/2020 Hyperlipidemia Hypothyroidism Hypothyroidism IBS (irritable bowel syndrome) Lumbar canal stenosis Lumbar stenosis Obstructive sleep apnea OTHER peptic ulcers Other anxiety states Periorbital headache Rectal bleeding Recurrent major depressive disorder, in full remission ([facility]) 01/10/2023 S/P laminectomy SN[facility] (sensorineural hearing loss) Solitary pulmonary nodule Solitary pulmonary nodule Venous insufficiency Vocal cord polyp Family History Problem Relation Age of Onset Cancer Mother 68, stomach cancer Lung Disorder Father 68, pulm d/o Allergies Father ECZEMA Gastro-intestinal disorder Sister Chron's dz Allergies Son RHINITIS Asthma Son SMOKER Other (myocardial infaction) Son Schizophrenia Other Other (gastric cancer) Other Breast Cancer Daughter Social History Socioeconomic History Marital status: Tobacco Use Smoking status: Former Current packs/day: 0.00 Average packs/day: 1 pack/day for 25.0 years (25.0 ttl pk-yrs) Types: Cigarettes Start date: 11/03/1975 Quit date: 11/03/2000 Years since quittin.3 Smokeless tobacco: Never Tobacco comments: quit 2000, previously 1ppd x 25 yrs Vaping Use Vaping Use: Never used Substance and Sexual Activity Alcohol use: No Drug use: No Sexual activity: Not Currently Partners: Male Social History Narrative [employer] INFORMATION ENVIRONMENTAL HISTORY: Type of Home: Two Story Type of Heating System: Electric and Oil Air Conditioning: Yes Living room Basement: Unfinished, No evidence mold, mildew and Dry Home have cockroaches: No Irritants in the home: None Patient's bedroom location: Floor: second Type of gautam: Area Rugs and Hardwood Beds: Number: 1 Type of beds: Mattress and Box spring Pillows: Number: 1 Type of pillows: Foam Bedroom contains: Minimal items Pets: none Lives on a farm: No Retired ; 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 Entered by: Ortiz Camacho MD 09/04/2007 OBJECTIVE/PHYSICAL EXAMINATION: BP 138/90 | Pulse 68 | Wt 85.3 kg (188 lb) | SpO2 93% | BMI 36.43 kg/m | BSA 1.9 m General: No acute distress. A+Ox3. HEENT: Normocephalic. Atraumatic. PERRL. EOMI. Conjunctiva and sclera clear. NECK: No carotid bruits. No JVD. Carotid upstrokes are brisk. Heart: RRR. S1 and S2 noted. No murmur. No rubs or gallops. PMI non displaced. Lungs: Clear to auscultation. No wheezes.No rhonchi. No rales. Abdomen: Normal bowel sounds. Soft. Nontender. No masses or organomegaly. No abdominal bruits. Extremities: No edema. No clubbing or cyanosis. Pulses: radial=2/4, posterior tibial=2/4, dorsalis pedis = 2/4. NEURO: No focal deficits. PSYCH: Appropriate affect and insight. DATA Labs & Imaging Reviewed Below: Echocardiogram 02/09/24 Interpretation Summary The examination is adequate to [...] absent. Mild aortic valve regurgitation is present. EKG 08/2023 NSR Rate 65bpm Echo 10/2022 The stress echo is negative for inducible ischemia. Resting Study: The qualitative LV ejection fraction is 60-64% (normal). The LV wall thickness is mildly increased (concentric). Mild aortic valve regurgitation is present. Mild tricuspid regurgitation is present. Zio 09/2022 Patient had a min HR of 54 bpm, max HR of 169 bpm, and avg HR of 75 bpm. Predominant underlying rhythm was Sinus Rhythm. 11 Supraventricular Tachycardia runs occurred, the run with the fastest interval lasting 6 beats with a max rate of 169 bpm, the longest lasting 12 beats with an avg rate of 118 bpm. Some episodes of Supraventricular Tachycardia may be possible Atrial Tachycardia with variable block. Supraventricular Tachycardia was detected within +/- 45 seconds of symptomatic patient event(s). Isolated SVEs were rare (<1.0%), SVE Couplets were rare (<1.0%), and SVE Triplets were rare (<1.0%). Isolated VEs were rare (<1.0%), VE Couplets were rare (<1.0%), and no VE Triplets were present. Ventricular Bigeminy was present. There were 5 patient triggered events and 3 diary events submitted. Interpretation of several the patient triggered events is technically limited due to the presence of artifact. The patient triggered events predominantly correlated with sinus rhythm ranging from 67 beats per minute to 85 beats per minute. One episode correlates with a brief run of SVT. ASSESSMENT/PLAN: 83 year old year old female 1. Nonrheumatic aortic valve insufficiency -No change in overall functional capacity. Is not extremely active due to leg pain. -Echo demonstrates stable mild AI, normal LVEF. Will repeat echo in one year for surveillance. 2. Varicose veins of both lower extremities with pain 3. Leg swelling -patient is noting increasing varicose veins with associated pain. She endorses chronic leg swelling, and has not been able to tolerate her compression stockings. -Palpable pulses, but patient endorses cold toes. -Obtain vasc US for assessment - VASC DUPLEX VENOUS LE BILAT; Future 4. HTN, goal below 140/90 -controlled. Continue Amlodipine, - BASIC METABOLIC PANEL; Future 5. Dyslipidemia -Continue Crestor -Recent lipid panel stable. DISPOSITION: Follow up 6 months or if symptoms worsen/fail to improve. All questions were answered to the patients satisfaction. Patient advised to report to ED with any and all emergencies. The patient agrees to the above plan and will call with additional questions or concerns. TRICIA Leigh Cardiology, [facility] [address] [facility] [place] [address] I spent a total of 30 minutes on the date of service in preparation, delivery, and documentation ofthe care provided to Olivia Mckeon excluding any time spent in the performance of separately billedservices. This chart was completed in part utilizing [employer] Speech Voice Recognition Software. Grammatical errors, random word insertions, pronoun errors, and incomplete sentences are an occasional consequence of this system due to software limitations, ambient noise, and hardware issues. Any formal questions or concerns about the content, text, or information contained within the body of this dictation should be directly addressed to the provider for clarification. documented in this encounter Nursing Notes * Dahlia Jonas CMA - 03/01/2024 1:45 PM EDT Examination Room: 6 Name: Olivia Mckeon Date of : (1940) Reason for Visit: 6m Interim Hospitalization(s): none Problems/Concerns: denied Chest Pain/SOB: denied My [facility] is a way you can talk to your provider online through e-mail. Would you like to sign up? I can activate it for you? DECLINES Patient was instructed to not get up on the exam table until directed and assisted by their provider; patient is to remain seated in the chair/ wheelchair/ exam table for fall prevention and safety reasons. Patient is aware to have assistance to step down off exam table with personnel. Patient voiced full comprehension of instructions. documented in this encounter Plan of Treatment Upcoming Encounters Date Type Department Care Team (Late st Contact Info) Description 03/09/2024 10:45 AM EDT Imaging Radiology [facility] [address] [facility] [place] [id number] 05/28/2024 10:20 AM EDT Office Visit Family Practice [facility] [place] [address] [place] [address] Alycia Terry, [address] [place] [address] 09/06/2024 11:00 AM EST Office Visit Allergy/Immunology [facility] [address] [place] [address] Jenna Romero PA-C [address] [facility] [place] [address] 09/13/2024 1:30 PM EST Office Visit Cardiology, [facility] [address] [facility] [place] [address] Reva Patel CRNP [address] [place] [address] Pending Results Name Type Priority Associated Diagnoses Date /Time BASIC METABOLIC PANEL Lab Routine HTN, goal below 140/90 03/01/2024 2:46 PM EDT Scheduled Orders Name Type Priority Associated Diagnoses Orde r Schedule VASC DUPLEX VENOUS LE BILAT Medical Imaging Routine Leg swelling Varicose veins of both lower extremities with pain Expected: 03/02/2024, Expires: 03/31/2025 BASIC METABOLIC PANEL Lab Routine HTN, goal below 140/90 Expected: 03/01/2024, Expires: 03/01/2025 Scheduled Procedures Name Priority Associated Diagnoses Date/Ti me COLONOSCOPY FLEXIBLE PROXIMA L DIAGNOSTIC Recall History of colonic polyps Health Maintenance Due Date Last Done Comments Albumin/Creatinine Ratio 1958 COVID-19 Vaccine ( season) 2023 10/22/2022, 10/20/2021, 03/24/2021, Additional history exists GFR 09/16/2024 09/16/2023, 110 05/2022, 02/04/2022, Additional history exists TSH 09/16/2024 09/16/2023, 110 05/2022, 02/04/2022, Additional history exists DXA Scan 06/14/2027 06/14/2020 Colonoscopy 08/21/2028 08/21/2023, 03/30/2010 DTaP,Tdap,and Td Vaccines (2 - Td or Tdap) 12/29/2030 12/29/2020, 07/12/2008 Pneumococcal Vaccine: 65+ Years Completed 05/15/2020, 08/14/2016, 11/30/2012, Additional history exists Zoster Vaccines Completed 01/13/2021, 03/0 11/2020, 08/09/2020 Influenza Vaccine (FLU shot) Completed [...] this encounter Medical Devices Implanted Type Area Sheet Metal Worker Helper Device Identifier Shelf Expiration Date Model / Serial / Lot Lens 24.0 Mx60 - [id number] - [id number] Implanted:Qty: 1 on 06/18/2017 by Dom Sullivan MD at OR [facility] Right: Eye [employer] : SURGICAL 12/03/2019 MX60-24.0 / [id number] / [id number] Lens 23.5 Mx60 - [id number] - [id number] Implanted:Qty: 1 on 07/23/2017 by Dom Slulivan MD at OR [facility] Left: Eye [employer] : SURGICAL 12/03/2019 MX60-23.5 / [id number] / [id number] documented as of this encounter Visit Diagnoses Diagnosis Nonrheumatic aortic valve insufficiency- Primary Aortic valve disorders Varicose veins of both lower extremities with pain Varicose veins of lower extremities with other complications Leg swelling Swelling of limb HTN, goal below 140/90 Unspecified essential hypertension Dyslipidemia Other and unspecified hyperlipidemia documented in this encounter Advance Directives Latest Code Status [...] 4:23 PM 09/10/2008 7:13 PM Care Teams Personnel Specialist Relationship Specialty Start Date End Date Alycia Terry DO [address] [place] [address] PCP - General Family Medicine 05/18/20 documented as of this encounter
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
--- OUTSIDE RECORDS SUMMARY | 2024-07-16 21:12 | External Medical Summary ---
Author Name Unknown Address Unknown Organization [facility] [address] [place] [address] Laboratory Report Ordering Provider Test Date Status KAUSHIK NUNEZ 03/01/2024 14:46:25 Final Observation Date Value Abnormality Reference (Units ) Status BUN 03/01/2024 14:46:25 9 6-20 (mg/dL) Final Creatinine 03/01/2024 14:46:25 0.8 0.5-1.0 (mg/dL) Final Glomerular filtration rate/1.73 sq M.predicted [Volume Rate/Area] in Serum, Plasma or Blood by Creatinine-based formula (CKD-EPI) 03/01/2024 14:46:25 73 >=60 (mL/min) Final eGFR is calculated based on the CKD-EPI 2020 equation Sodium 03/01/2024 14:46:25 137 135-146 (m mol/L) Final Potassium 03/01/2024 14:46:25 4.1 3.5-5.1 (m mol/L) Final Cl 03/01/2024 14:46:25 102 98-107 (mm ol/L) Final CO2 03/01/2024 14:46:25 27 22-32 (mmo l/L) Final Anion gap 03/01/2024 14:46:25 8 7-15 (mmol /L) Final Glucose 03/01/2024 14:46:25 80 70-120 (mg /dL) Final Calcium 03/01/2024 14:46:25 9.3 8.4-10.2 ( mg/dL) Final Performing Location [facility] [address] [place] [address]
--- OUTSIDE RECORDS SUMMARY | 2024-07-16 21:12 | External Medical Summary | Summary of Care ---
Author Name Unknown Organization [facility] Address [address] [place] [address] Phone [phone] Care Team Providers Care M48 M60 Armor Crewman Name Role Phone Alycia Terry DO Primary Care Provider Reason for Visit * Reason Comments Outpatient Testing Encounter Details Date Type Department Care Team (Late st Contact Info) Description 03/01/2024 3:00 PM EDT Laboratory Laboratory, [facility] [address] [place] [address] [facility] [address] [place] [address] HTN, goal below 140/90 Allergies Active Allergy Reactions Criticality Noted Date [...] Ointment Use as directed. 0 08/13/2023 Active Albuterol Sulfate HFA 108 [...] mRNA, LNP-s, No Pre serve, 2-Dose Series ([employer]) 10/22/2022,10/20/2021,03/24/2021,0511/2020 H1N1 2009 Influenza, IM 11/23/2009 PPD [...] on file documented as of this encounter Plan of Treatment Upcoming Encounters Date Type Department Care Team (Late st Contact Info) Description 03/09/2024 10:45 AM EDT Imaging Radiology [address] [place] [address] 05/28/2024 10:20 AM EDT Office Visit [facility] [place] [address] [place] [address] Alycia Terry DO [address] [facility] [place] [address] 09/06/2024 11:00 AM EST Office Visit [facility] [place] [address] [place] [address] Jenna Romero PA-C [address] [place] [address] 09/13/2024 1:30 PM EST Office Visit Cardiology, [facility] [address] [place] [address] Reva Patel CRNP [address] [place] [address] Pending Results Name Type Priority Associated Diagnoses Date /Time BASIC METABOLIC PANEL Lab Routine HTN, goal below 140/90 03/01/2024 2:46 PM EDT Scheduled Procedures Name Priority Associated Diagnoses Date/Ti [...] this encounter Medical Devices Implanted Type Area Subsurface Augmentee Elint Operator Device Identifier Shelf Expiration Date Model / Serial / Lot Lens 24.0 Mx60 - [id number] - [id number] Implanted:Qty: 1 on 06/18/2017 by Dom Sullivan MD at OR [facility] Right: Eye [employer] : SURGICAL 12/03/2019 MX60-24.0 / [id number] / [id number] Lens 23.5 Mx60 - [id number] - [id number] Implanted:Qty: 1 on 07/23/2017 by Dom Sullivan MD at OR [facility] Left: Eye [employer] : SURGICAL 12/03/2019 MX60-23.5 / [id number] / [id number] documented as of this encounter Visit Diagnoses Diagnosis HTN, goal below 140/90 Unspecified essential hypertension documented in this encounter Advance Directives Latest [...] 4:23 PM 09/10/2008 7:13 PM Care Teams M48 M60 Armor Crewman Relationship Specialty Start Date End Date Alycia Terry DO [address] [place] [address] PCP - General Family Medicine 05/18/20 documented as of this encounter
--- OUTSIDE RECORDS SUMMARY | 2024-07-16 21:12 | External Medical Summary | Summary of Care ---
Author Name Unknown Organization [facility] Address [address] [place] [address] Phone [phone] Care Team Providers Care Scrap Drop Engineer Name Role Phone Alycia Terry DO Primary Care Provider Encounter Details Date Type Department Care Team (Late st Contact Info) Description 05/31/2024 Orders Only PATIENT PORTAL DO NOT DELETE THIS DEPT [facility] [address] Allergies Active Allergy Reactions Criticality Noted Date [...] as of this encounter (statuses as of 05/31/2024) Medications Medication Sig Dispensed Refills Start Date [...] 09/10/2023 Sertraline HCl 50 MG Oral Tablet (Zoloft)Indications: [...] Active amLODIPine Besylate 2.5 MG Oral Tablet (Norvasc)Indications :HTN, goal below 140/90 Take 1 Tablet by mouth in the morning. In the morning.. 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 With one 50mg tab for a total of 150mg. 90 Tablet 3 05/28/2024 Active Donepezil HCl 5 MG Oral Tablet (Aricept)Indications :Mild dementia, unspecified dementia type, unspecified whether behavioral, psychotic, or mood disturbance or anxiety (HCC) Take 1 Tablet by mouth in the morning. Take with largest meal of the day.. 90 Tablet 3 05/28/2024 Active LORazepam 0.5 MG Oral Tablet (Ativan)Indications: Anxiety state Take 1 Tablet by mouth at bedtime as needed for Anxiety or Sleep. 90 Tablet 1 05/28/2024 Active documented as of this encounter (statuses as of 05/31/2024) Active Problems Problem Noted Date Diagnosed Date [...] as of this encounter (statuses as of 05/31/2024) Resolved Problems Problem Noted Date Diagnosed Date [...] as of this encounter (statuses as of 05/31/2024) Immunizations Name Administration Dates Next Due COVID-19 mRNA, LNP-s, No Pre serve, 2-Dose Series ([employer]) 10/22/2022,10/20/2021,03/24/2021,0511/2020 H1N1 2009 Influenza, IM 11/23/2009 PPD [...] 8:40 AM EDT Office Visit Family Practice [facility] [address] [place] [address] Alycia Terry DO [address] [place] [address] 09/06/2024 11:00 AM EST Office Visit Allergy/Immunology [facility] [address] [place] [address] Jenna Romero PA-C [address] [place], [place] [address] 09/13/2024 1:30 PM EST Office Visit Cardiology, [facility] [address] [place] [address] Reva Patel CRNP [address] [place] [address] Scheduled Procedures Name Priority Associated Diagnoses Date/Ti me COLONOSCOPY FLEXIBLE PROXIMA L DIAGNOSTIC Recall History of colonic polyps Health Maintenance Due Date Last Done Comments Albumin/Creatinine Ratio 1958 Depression Monitoring 09/07/2021 09/07/2020 COVID-19 Vaccine (2022- season) 2023 10/22/2022, 10/20/2021, 03/24/2021, Additional history exists Influenza Vaccine (FLU shot) (#1) 2024 07/21/2023, 07/21/2023, 08/23/2022, Additional history exists TSH 09/16/2024 09/16/2023, 05/2022, [...] this encounter Medical Devices Implanted Type Area Community Sports Coordinator Device Identifier Shelf Expiration Date Model / Serial / Lot Lens 24.0 Mx60 - [id number] - [id number] Implanted:Qty: 1 on 06/18/2017 by Dom Sullivan MD at OR [facility] Right: Eye [employer]USCH [employer] LOMB : SURGICAL 12/03/2019 MX60-24.0 / [id number] / [id number] Lens 23.5 Mx60 - [id number] - [id number] Implanted:Qty: 1 on 07/23/2017 by Dom Sullivan MD at OR [facility] Left: Eye BAUSCH & LOMB : SURGICAL 12/03/2019 MX60-23.5 / [id number] / [id number] documented as of this encounter Advance Directives [...] 4:23 PM 09/10/2008 7:13 PM Care Teams Scrap Drop Engineer Relationship Specialty Start Date End Date Alycia Terry DO 200 [facility], [place] [address] PCP - General Family Medicine 05/18/20 documented as of this encounter
--- OUTSIDE RECORDS SUMMARY | 2024-07-16 21:12 | External Medical Summary | Summary of Care ---
Author Name Unknown Organization [facility] Address [address] [place] [address] Phone [phone] Care Team Providers Care Station Superintendent Name Role Phone Alycia Terry DO Primary Care Provider Reason for Visit * Reason Onset Date Comments Test Results 04/06/2024 Encounter Details Date Type Department Care Team (Late st Contact Info) Description 04/06/2024 Telephone Cardiology, [facility] [address] [place] [address] Patricia Choi CRNP [address] [facility] [address] Test Results Allergies Active Allergy Reactions Criticality Noted Date [...] as of this encounter (statuses as of 04/07/2024) Medications Medication Sig Dispensed Refills Start Date [...] Powder Take by mouth daily . Active Qvar RediHaler 80 MCG/ACT Inhalation Aerosol [...] MG/GM Ophthalmic Ointment Use as directed. 08/13/2023 Active Albuterol Sulfate HFA 108 (90 [...] as of this encounter (statuses as of 04/07/2024) Active Problems Problem Noted Date Diagnosed Date [...] as of this encounter (statuses as of 04/07/2024) Resolved Problems Problem Noted Date Diagnosed Date [...] as of this encounter (statuses as of 04/07/2024) Immunizations Name Administration Dates Next Due COVID-19 mRNA, LNP-s, No Pre serve, 2-Dose Series ([employer]) 10/22/2022,10/20/2021,03/24/2021,0511/2020 H1N1 2009 Influenza, IM 11/23/2009 PPD [...] encounter Miscellaneous Notes * Telephone Encounter - Yancy Gaona RN - 04/07/2024 1:27 PM EDT Called, spoke with patient. Aware of results from vascular ultrasound 03/09/24. * Telephone Encounter - Nini Rosenthal OSA - 04/06/2024 4:40 PM EDT Person calling: miguelina Relationship to patient: self Number to return call: [phone] Reason for call(brief): test results Pharmacy: na Provider Name:patricia choi Detailed message to office: Patient would like someone to call her about the vascular study results documented in this encounter Plan of Treatment Upcoming Encounters Date Type Department Care Team (Late st Contact Info) Description 05/28/2024 10:20 AM EDT Office Visit Family Practice [facility] [address] [place] [address] Alycia Terry DO 200 [facility] [place] [address] 09/06/2024 11:00 AM EST Office Visit Allergy/Immunology [facility] [place] [address] [facility] [place] [address] Jenna Romero PA-C [address] [place] [address] 09/13/2024 1:30 PM EST Office Visit Cardiology, [facility] [address] [place] [address] Patricia Choi CRNP [address] [place] [address] Scheduled Procedures Name Priority Associated Diagnoses Date/Ti [...] this encounter Medical Devices Implanted Type Area Waybill Clerk Device Identifier Shelf Expiration Date Model / Serial / Lot Lens 24.0 Mx60 - [id number] - [id number] Implanted:Qty: 1 on 06/18/2017 by Dom Sullivan MD at OR [facility] Right: Eye BAUSCH [employer] LOMB : SURGICAL 12/03/2019 MX60-24.0 / [id number] / [id number] Lens 23.5 Mx60 - [id number] - [id number] Implanted:Qty: 1 on 07/23/2017 by Dom Sullivan MD at OR [facility] Left: Eye BAUSCH & LOMB : SURGICAL 12/03/2019 MX60-23.5 / [id number] / [id number] documented as of this encounter Advance Directives [...] 4:23 PM 09/10/2008 7:13 PM Care Teams Station Superintendent Relationship Specialty Start Date End Date Alycia Terry DO [address] [place] [address] PCP - General Family Medicine 05/18/20 documented as of this encounter
--- OUTSIDE RECORDS SUMMARY | 2024-07-16 21:12 | External Medical Summary | Summary of Care ---
Author Name Unknown Organization [facility] Address [address] [place] [address] Phone [phone] Care Team Providers Care Saxophone Teacher Name Role Phone Alycia Terry DO Primary Care Provider Reason for Visit * Reason Onset Date Comments Test Results 03/02/2024 Encounter Details Date Type Department Care Team (Late st Contact Info) Description 03/02/2024 Telephone Cardiology, [facility] [address] [place] [address] Reva Patel CRNP [address] [facility] [address] Test Results Allergies Active Allergy Reactions Criticality [...] as of this encounter (statuses as of 03/02/2024) Medications Medication Sig Dispensed Refills Start Date [...] as of this encounter (statuses as of 03/02/2024) Active Problems Problem Noted Date Diagnosed Date [...] as of this encounter (statuses as of 03/02/2024) Resolved Problems Problem Noted Date Diagnosed Date [...] as of this encounter (statuses as of 03/02/2024) Immunizations Name Administration Dates Next Due COVID-19 mRNA, LNP-s, No Pre serve, 2-Dose Series ([facility]) 10/22/2022,10/20/2021,03/24/2021,0511/2020 H1N1 2009 Influenza, IM 11/23/2009 PPD [...] encounter Miscellaneous Notes * Telephone Encounter - Dahlia Jonas CMA - 03/02/2024 12:10 PM EDT Letter mailed. * Telephone Encounter - Dahlia Jonas CMA - 03/02/2024 12:09 PM EDT ----- Message from TRICIA Martinez sent at 03/02/2024 5:51 AM EDT ----- Please advise patient that her lab work is normal, and that her blood sugar is normal, no suggestion of diabetes or concern of diabetes documented in this encounter Plan of Treatment Upcoming Encounters Date Type Department Care Team (Late st Contact Info) Description 03/09/2024 10:45 AM EDT Imaging Radiology [facility] 132 [facility] [place] [address] 05/28/2024 10:20 AM EDT Office Visit Family Practice [facility] [address] [place] [address] Alycia Terry DO 200 [facility] [place] [address] 09/06/2024 11:00 AM EST Office Visit Allergy/Immunology [facility] [address] [place] [address] Jenna Romero PA-C 200 [facility] [place] [address] 09/13/2024 1:30 PM EST Office Visit Cardiology, [facility] 132 [facility] [place] [address] Reva Patel CRNP 132 [facility] [place] [address] Scheduled Procedures Name Priority Associated Diagnoses Date/Ti [...] 0311/2020, 08/09/2020 Influenza Vaccine (FLU shot) Completed 07/21/2023, [...] this encounter Medical Devices Implanted Type Area Assorter Laundry Device Identifier Shelf Expiration Date Model / Serial / Lot Lens 24.0 Mx60 - [id number] - [id number] Implanted:Qty: 1 on 06/18/2017 by Dom Sullivan MD at OR [facility] Right: Eye BAUSCH [employer] LOMB : SURGICAL 12/03/2019 MX60-24.0 / [id number] / [id number] Lens 23.5 Mx60 - [id number] - [id number] Implanted:Qty: 1 on 07/23/2017 by Dom Sullivan MD at OR [facility] Left: Eye BAUSCH [employer] LOMB : SURGICAL 12/03/2019 MX60-23.5 / [id number] / [id number] documented as of this encounter Advance Directives [...] 4:23 PM 09/10/2008 7:13 PM Care Teams Saxophone Teacher Relationship Specialty Start Date End Date Alycia Terry DO [facility] [place] [address] PCP - General Family Medicine 05/18/20 documented as of this encounter
--- OUTSIDE RECORDS SUMMARY | 2024-07-16 21:13 | External Medical Summary | Summary of Care ---
Author Name Unknown Organization [facility] Address [address] [place] [address] Phone [phone] Care Team Providers Care Desk Representative Name Role Phone Alycia Terry DO Primary Care Provider Reason for Visit * Reason Comments New Med Request Encounter Details Date Type Department Care Team (Late st Contact Info) Description 02/02/2024 Refill Gastroenterology, [facility] [address] [place] [address] Naomie Shaw CRNP [address] [place] [address] Allergies Active Allergy Reactions Criticality Noted Date [...] as of this encounter (statuses as of 02/03/2024) Medications Medication Sig Dispensed Refills Start Date [...] Additional Information Patient not taking.Reported on 09/10/2023 Omeprazole 20 MG Oral Capsule Delayed Release ([employer]ri[employer]) TAKE 1 CAPSULE IN THE MORNING 90 Capsule 1 05/31/2023 Active amLODIPine Besylate 2.5 MG Oral Tablet [...] THE MORNING 90 Tablet 3 11/28/2023 Active documented as of this encounter (statuses as of 02/03/2024) Active Problems Problem Noted Date Diagnosed Date [...] as of this encounter (statuses as of 02/03/2024) Resolved Problems Problem Noted Date Diagnosed Date [...] as of this encounter (statuses as of 02/03/2024) Immunizations Name Administration Dates Next Due COVID-19 mRNA, LNP-s, No Pre serve, 2-Dose Series ([employer]) 10/22/2022,10/20/2021,03/24/2021,0511/2020 H1N1 2009 Influenza, IM 11/23/2009 PPD [...] encounter Miscellaneous Notes * Telephone Encounter - Gill Stroud - 02/03/2024 4:47 AM EDTRefused Prescriptions: Disp Refills Omeprazole 20 MG Oral Capsule Delayed Rele* 0 Sig: Refused By:GILL STROUDReason for Refusal: Duplicate Request documented in this encounter Plan of Treatment Upcoming Encounters Date Type Department Care Team (Late st Contact Info) Description 02/09/2024 1:30 PM EDT Cardiac Studies Cardiac Studies, [facility] 132 [facility] [place] [address] 03/01/2024 2:00 PM EDT Office Visit Cardiology, [facility] [address] [facility] [place] [address] Reva Patel CRNP 132 [facility] [place] [address] 05/28/2024 10:20 AM EDT Office Visit Family Practice [facility] [place] [address] [place] [address] Alycia Terry DO 200 [facility] [place] [address] 09/06/2024 11:00 AM EST Office Visit Allergy/Immunology [facility] [place] [address] [place] [address] Jenna Romero PA-C [address] [place] [address] Scheduled Procedures Name Priority Associated Diagnoses Date/Ti me COLONOSCOPY FLEXIBLE PROXIMA L DIAGNOSTIC Recall History of colonic polyps Health Maintenance Due Date Last Done Comments Albumin/Creatinine Ratio 1958 Depression Screening 09/07/2021 09/07/2020 COVID-19 Vaccine (2022- season) 2023 10/22/2022, 10/20/2021, 03/24/2021, Additional history exists GFR 09/16/2024 09/16/2023, 0 05/2022, 02/04/2022, Additional history exists TSH 09/16/2024 09/16/2023, 0 05/2022, 02/04/2022, Additional history exists DXA Scan 06/14/2027 06/14/2020 COLONOSCOPY-EVERY 5 YRS AGES 18-100 08/21/2028 08/21/2023, 03/30/2010 DTaP,Tdap,and Td Vaccines (2 - Td or Tdap) 12/29/2030 12/29/2020, 07/12/2008 Pneumococcal Vaccine: 65+ Years Completed 05/15/2020, 08/14/2016, 11/30/2012, Additional history exists Zoster Vaccines Completed 01/13/2021, 11/2020, 08/09/2020 Influenza Vaccine (FLU shot) Completed , [...] this encounter Medical Devices Implanted Type Area Nurse Consultant Device Identifier Shelf Expiration Date Model / Serial / Lot Lens 24.0 Mx60 - [id number] - [id number] Implanted:Qty: 1 on 06/18/2017 by Dom Sullivan MD at OR [facility] Right: Eye BAUSCH [employer] LOMB : SURGICAL 12/03/2019 MX60-24.0 / [id number] / [id number] Lens 23.5 Mx60 - [id number] - [id number] Implanted:Qty: 1 on 07/23/2017 by Dom Sullivan MD at OR [facility] Left: Eye BAUSCH & LOMB : SURGICAL 12/03/2019 MX60-23.5 / [id number] / [id number] documented as of this encounter Advance Directives [...] 4:23 PM 09/10/2008 7:13 PM Care Teams Desk Representative Relationship Specialty Start Date End Date Alcyia Terry DO [address] [place] [address] PCP - General Family Medicine 05/18/20 documented as of this encounter
--- OUTSIDE RECORDS SUMMARY | 2024-07-16 21:13 | External Medical Summary | Summary of Care ---
Author Name Unknown Organization [facility] Address [address] [place] [address] Phone [phone] Care Team Providers Care Logistic Manager Name Role Phone Alycia Terry DO Primary Care Provider Reason for Visit * Reason Comments eRx-Medication Refill Encounter Details Date Type Department Care Team (Late st Contact Info) Description 02/02/2024 Refill Gastroenterology, [facility] [address] [facility] [address] Naomie Morocho CRNP [address] [place] [address] Encounter for long-term (current) use of medications* Allergies Active Allergy Reactions Criticality Noted Date [...] as of this encounter (statuses as of 02/04/2024) Medications Medication Sig Dispensed Refills Start Date [...] Ointment Use as directed. 0 3 Active Guar Gum Powder DAILY IN THE MORNING 0 3 Active Albuterol Sulfate HFA 108 [...] THE MORNING 90 Capsule 3 4 Active Omeprazole 20 MG Oral Capsule Delayed Release (PriLOSEC) TAKE 1 CAPSULE IN THE MORNING 90 Capsule 1 3 02/04/20 24 Discontinued documented as of this encounter (statuses as of 02/04/2024) Active Problems Problem Noted Date Diagnosed Date [...] as of this encounter (statuses as of 02/04/2024) Resolved Problems Problem Noted Date Diagnosed Date [...] as of this encounter (statuses as of 02/04/2024) Immunizations Name Administration Dates Next Due COVID-19 mRNA, LNP-s, No Pre serve, 2-Dose Series ([employer]) 10/22/2022,10/20/2021,03/24/2021,0511/2020 H1N1 2009 Influenza, IM 11/23/2009 PPD [...] encounter Miscellaneous Notes * Telephone Encounter - Chito Silva [facility] - 02/04/2024 2:25 PM EDT Signed Prescriptions: Disp Refills Omeprazole 20 MG Oral Capsule Delayed Rele*90 Cap*3 Sig: TAKE 1 CAPSULE IN THE MORNINGAuthorizing Provider: NAOMIE MOROCHO User: CHITO SILVA * Telephone Encounter - Chito Silva RPh - 02/04/2024 2:23 PM EDT Per refill protocol patient needs vitamin B-12 lab on file within the past 2 years while using PPIs. Lab work ordered. Patient may obtain with next routine labs. Thanks, Chito Silva, PharmD, MS Clinical Pharmacist [facility] ([facility]) [phone] 02/04/2024 2:24 PM documented in this encounter Plan of Treatment Upcoming Encounters Date Type Department Care Team (Late st Contact Info) Description 02/09/2024 1:30 PM EDT [facility] [place] [address] [place] [address] 03/01/2024 2:00 PM EDT [facility] [place] [address] [place] [address] Reva Patel CRNP [address] [place] [place] [address] 05/28/2024 10:20 AM EDT Office Visit Family Practice [facility] [place] [address] [place] [address] Alycia Terry DO [address] [place] [address] 09/06/2024 11:00 AM EST [facility] [place] [facility] [place] [address] Jenna Romero PA-C 200 [facility] [place] [address] Scheduled Orders Name Type Priority Associated Diagnoses Orde r Schedule VITAMIN B12 Lab Routine Encounter for long-term (current) use of medications Expected: 05/05/2024 (Approximate), Expires: 02/03/2025 Scheduled Procedures Name Priority Associated Diagnoses Date/Ti [...] this encounter Medical Devices Implanted Type Area Materials Technician Device Identifier Shelf Expiration Date Model / Serial / Lot Lens 24.0 Mx60 - [id number] - [id number] Implanted:Qty: 1 on 06/18/2017 by Dom Sullivan MD at OR [facility] Right: Eye BAUSCH & LOMB : SURGICAL 12/03/2019 MX60-24.0 / [id number] / [id number] Lens 23.5 Mx60 - [id number] - [id number] Implanted:Qty: 1 on 07/23/2017 by Dom Sullivan MD at OR [facility] Left: Eye BAUSCH & LOMB : SURGICAL 12/03/2019 MX60-23.5 / [id number] / [id number] documented as of this encounter Visit Diagnoses Diagnosis Encounter for long-term (current) use of medications- Primary Encounter for long-term (current) use of other medications documented in this encounter Advance Directives Latest [...] 4:23 PM 09/10/2008 7:13 PM Care Teams Logistic Manager Relationship Specialty Start Date End Date Alycia Terry DO [address] [place], [place] [address] PCP - General Family Medicine 05/18/20 documented as of this encounter
--- OUTSIDE RECORDS SUMMARY | 2024-07-16 21:13 | External Medical Summary | Summary of Care ---
Author Name Unknown Organization [facility] Address [address] [place] [address] Phone [phone] Care Team Providers Care Dye Boarding Machine Operator Name Role Phone Alycia Terry DO Primary Care Provider Reason for Visit * Reason Onset Date Comments Health Maintenance 02/11/2024 Encounter Details Date Type Department Care Team (Late st Contact Info) Description 02/11/2024 Telephone Family Practice [facility] [place] [address] [place] [address] Alycia Terry DO [address] [facility] [place] [address] Health Maintenance Allergies Active Allergy Reactions Criticality Noted Date [...] as of this encounter (statuses as of 02/11/2024) Medications Medication Sig Dispensed Refills Start Date [...] as of this encounter (statuses as of 02/11/2024) Active Problems Problem Noted Date Diagnosed Date [...] as of this encounter (statuses as of 02/11/2024) Resolved Problems Problem Noted Date Diagnosed Date [...] as of this encounter (statuses as of 02/11/2024) Immunizations Name Administration Dates Next Due COVID-19 mRNA, LNP-s, No Pre serve, 2-Dose Series (Walk-in Appointment Scheduler) 10/22/2022,10/20/2021,03/24/2021,05/0 11/2020 H1N1 2009 Influenza, IM 11/23/2009 [...] encounter Miscellaneous Notes * Telephone Encounter - Renu Lopes LPN - 02/11/2024 12:33 PM EDT Care Gaps Comprehensive Care Outreach Last Office/Telemedicine Visit: 11/17/2023 (in office), Visit date not found (telemedicine) Next Office Visit: 05/28/2024 Hemoglobin AIC Results: Lab Results Component Value Date/Time HEMOGLOBIN A1C - [facility] 5.6 02/04/2022 10:55 AM BP Readings from Last 1 Encounters: 11/20/23 128/76 Reviewed Health Maintenance below: Health Maintenance Topic Date Due Albumin/Creatinine Ratio Never done COVID-19 Vaccine ( season) 2023 GFR 09/16/2024 TSH 09/16/2024 Urine awv [place] Outreach Action Taken: Left message documented in this encounter Plan of Treatment Upcoming Encounters Date Type Department Care Team (Late st Contact Info) Description 03/01/2024 2:00 PM EDT Office Visit Cardiology, [facility] [address] [place] [address] Reva Patel CRNP [address] [place] [address] 05/28/2024 10:20 AM EDT Office Visit Family Practice [facility] 200 [facility] [place] [address] Alycia Terry DO 200 [facility] [place] [address] 09/06/2024 11:00 AM EST Office Visit Allergy/Immunology [facility] [place] [address] [place] [address] Jenna Romero PA-C [address] [place] [address] Scheduled Procedures Name Priority Associated Diagnoses Date/Ti [...] Additional history exists Zoster Vaccines Completed 01/13/2021, 03/11/2020, 08/09/2020 Influenza Vaccine (FLU shot) Completed , [...] this encounter Medical Devices Implanted Type Area Student Development Coordinator Device Identifier Shelf Expiration Date Model / Serial / Lot Lens 24.0 Mx60 - [id number] - [id number] Implanted:Qty: 1 on 06/18/2017 by Dom Sullivan MD at OR [facility] Right: Eye BAUSCH [employer] LOMB : SURGICAL 12/03/2019 MX60-24.0 / [id number] / [id number] Lens 23.5 Mx60 - [id number] - [id number] Implanted:Qty: 1 on 07/23/2017 by Dom Sullivan MD at OR [facility] Left: Eye BAUSCH & LOMB : SURGICAL 12/03/2019 MX60-23.5 / [id number] / [id number] documented as of this encounter Advance Directives [...] 4:23 PM 09/10/2008 7:13 PM Care Teams Dye Boarding Machine Operator Relationship Specialty Start Date End Date Alycia Terry DO [address] [place] [address] [place] [address] PCP - General Family Medicine 05/18/20 documented as of this encounter
[2024-07-16] MEDS: HEPARIN SOD 5,000 UNIT/0.5 ML VIAL SQ SCH (21:37)
[2024-07-16] MEDS: ACETAMINOPHEN 325 MG TAB PO PRN (21:37)
[2024-07-16] MEDS: HEPARIN SOD (PORCINE) 1000 UNIT/ML IV ONE (23:50)
[2024-07-16] MEDS: HEPARIN SODIUM/DEXTROSE 25,000 UNITS/500 ML BAG IV SCH (23:51)
[2024-07-16] MEDS: Heparin IV Adult Wt-Based Standard w/ INITIAL Bolus Protocol IV STA (23:54)
[2024-07-17 04:48] LABS: Hematocrit (blood only) 38.2 % (37.0-47.0); Hemoglobin 13.3 g/dl (12.0-16.0); Mean Corpuscular Hemoglobin 31.6 pg (25.0-34.0); Mean Corpuscular Hgb Conc 34.8 g/dL (32.0-36.0); Mean Corpuscular Volume 90.7 fL (80.0-100.0); Mean Platelet Volume 10.3 fL (9.4-12.4); Platelet Count 147 K/uL (130-400); RDW Coefficient of Variation 12.3 % (11.5-14.5); RDW Standard Deviation 40.9 fL (36.4-46.3); Red Blood Count 4.21 M/uL (4.20-5.40); White Blood Count 10.74 K/ul (4.8-10.8)
[2024-07-17 05:02] LABS: BUN Creatinine Ratio 14.3 (10-20); Calcium 8.6 mg/dl (8.6-10.3); Chol HDL Ratio 2.6 (0-5); Est GFR (African American) 95.5 ml/min; Est GFR (Non-African American) 82.4 ml/min; Potassium 3.4 mmol/L (3.5-5.1)
[2024-07-17 05:18] LABS: Thyroid Stimulating Hormone 1.263 uIu/ml (0.300-4.500)
[2024-07-17 05:37] LABS: ANTI-Xa, UFH(UnfractionatedHep 0.98 IU/ml (0.3-0.7)
[2024-07-17] MEDS: LEVOTHYROXINE SODIUM 75 MCG TABLET PO SCH (06:04)
[2024-07-17 06:32] LABS: Troponin I High Sensitivity 1776.4 pg/ml (0-14)
[2024-07-17] MEDS: METOPROLOL TARTRATE 25 MG TAB PO SCH ×2 (07:18→10:29)
[2024-07-17] MEDS: CYANOCOBALAMIN (B-12) 500 MCG TABLET PO SCH (08:03)
[2024-07-17] MEDS: CHOLECALCIFEROL 25 MCG (1000 UNITS) TAB PO SCH (08:03)
[2024-07-17] MEDS: ASPIRIN 81 MG ECTAB PO SCH (08:03)
[2024-07-17] MEDS: amLODIPine BESYLATE 5 MG TAB PO SCH (08:03)
[2024-07-17] MEDS: PANTOprazole 40 MG TAB PO SCH (08:04)
[2024-07-17] MEDS: ROSUVASTATIN CALCIUM 10 MG TAB PO SCH (08:04)
[2024-07-17] MEDS: SERTRALINE HCL 100 MG TABLET PO SCH (08:04)
[2024-07-17] MEDS: FLUTICASONE FUROATE 200MCG 14 PUFFS/INHALER INH SCH (08:04)
--- NOTE | 2024-07-17 08:05 | Hospitalist Progress Note ---
Date of Service July 17, 2024 Assessment & Plan (1) NSTEMI (non-ST elevated myocardial infarction): (2) Chest pain: Plan: Patient is 84-year-old female with PMH HTN, HLD, hypothyroidism, asthma, depression, anxiety presented to ER with c/o upper chest and neck tightness and left jaw discomfort today while cleaning. Symptoms persisted couple hours and in ER given aspirin 324mg and 1 SL nitro and patient reports relief. High sensitivity troponin 11 on admission, increased to 1776 overnight and downtrended EKG sinus rhythm, nonspecific T wave changes. Previous Imagings: 10/14/2022 stress echo: No evidence of inducible ischemia, EF: 60-64%, mild AR, mild TR 02/09/24: EF: 65%, no LV wall motion abnormality, grade 1 diastolic dysfunction, mild AR Continue on heparin, aspirin and rosuvastatin Echo pending Also on metoprolol Discussed with cardiology; recommended to continue aspirin, iv heparin; possible left heart cath on Friday. Continue telemonitoring (3) HTN (hypertension): Plan: BP initially elevated in ER. Improved after 1 SL nitro Monitor Continue amlodipine, metoprolol (4) Hyperlipidemia: Plan: Continue rosuvastatin (5) Hypothyroidism: Plan: Continue levothyroxine (6) Asthma: Plan: No signs acute exacerbation Continue home inhalers (7) Depression with anxiety: Plan: Continue sertraline DVT Prophylaxis Heparin SQ Admit med tele Conditional code with wanting chest compressions, defibrillation and medications but does Not want intubation or ventilation as per discussion with pt Follows with Dr Terry for routine care Discussed with patient's daughter at bedside. Answered questions/queries. Time spent evaluating patient, direct bedside care, chart review, placing orders, interpretation of diagnostic studies, discussion with consultants, patient, and family members, as well as other required patient management activities is 50 minutes Please note the above document was generated using voice recognition software. It may contain grammatical, syntax or spelling errors. Any formal questions or concerns about the content, text or information contained within the body of this dictation should be directly addressed to the provider for clarification Admission and Anticipated Discharge Date Admission Date: July 16, 2024 Subjective Patient seen and examined at bedside. Comfortable; not in distress. Denies fever, chills, chest pain, shortness of breath, abdominal pain or urinary symptoms. No significant overnight events Review of Systems Review of Systems: All systems reviewed & are unremarkable except as noted in Subjective Physical Exam Physical Exam: General: no distress, WDWN Head: normocephalic, atraumatic Eyes: conjunctiva non-injected, anicteric ENT: normal inspection external ears, nose, mucous membranes moist Neck: supple, trachea midline Lungs: clear, no respiratory distress, no wheezing/rhonchi/rales CV: RRR, no JVD, no pretibial edema Abd: normal BS, soft, non-tender Ext: no cyanosis, no calf tenderness Neuro: A&O x 3, no focal deficits noted, normal affect Skin: warm, dry Results & Data Results & Data Vital Signs (Past 12 Hours) Vital Signs Temp Pulse Pulse Pulse Resp BP Pulse Ox 07/17/24 07:59 36.9 C 63 18 134/68 92 07/17/24 07:10 72 07/17/24 03:05 36.8 C 69 16 126/72 92 07/17/24 00:16 69 07/16/24 23:43 80 07/16/24 23:25 36.8 C 68 18 145/66 H 95 07/16/24 22:57 36.7 C 71 18 143/57 H 92 07/16/24 21:56 07/16/24 20:55 67 07/16/24 20:55 36.8 C 64 20 178/72 H 96 O2 Del Method 07/17/24 07:59 Room Air 07/17/24 07:10 07/17/24 03:05 Room Air 07/17/24 00:16 07/16/24 23:43 07/16/24 23:25 Room Air 07/16/24 22:57 Room Air 07/16/24 21:56 Room Air 07/16/24 20:55 07/16/24 20:55 Room Air (2) Chest pain Chest pain type: unspecified Qualified Code(s): R07.9 - Chest pain, unspecified (4) Hyperlipidemia Hyperlipidemia type: mixed hyperlipidemia Qualified Code(s): E78.2 - Mixed hyperlipidemia (5) Hypothyroidism Hypothyroidism type: acquired Qualified Code(s): E03.9 - Hypothyroidism, unspecified (6) Asthma Asthma complication type: unspecified Asthma persistence: unspecified Asthma severity: moderate Qualified Code(s): J45.909 - Unspecified asthma, uncomplicated
[2024-07-17] MEDS: POTASSIUM CHLORIDE CRTAB 20 MEQ TABCR PO STA (08:11)
--- NOTE | 2024-07-17 09:53 | Cardiology Consultation ---
Date of Consultation July 17, 2024 Assessment & Plan (1) NSTEMI (non-ST elevated myocardial infarction): (2) Chest pain: (3) HTN (hypertension): Plan 84-year-old female presents with symptoms consistent with crescendo angina, non- ST segment elevation myocardial infarction with rest chest pain, elevated troponin relieved with aspirin and nitroglycerin Patient appropriately anticoagulated with IV heparin Echocardiogram with preserved LV EKG without acute injury pattern Plan: Continue aspirin IV heparin Anticipate referral for coronary angiography Friday unless acute changes develop Increase rosuvastatin to 20 mg p.o. daily Patient may be out of bed to chair due to back discomfort Add low-dose beta-lakisha with metoprolol tartrate 12.5 mg twice per day History of Present Illness Reason for Consultation: Non-ST segment elevation myocardial infarction Requesting Physician: Dr. Barba Attending Physician: Bob Barba MD History of Present Illness Patient is an 84-year-old female whose cardiac issues per outpatient records include 1. Hypertension a. Angioedema with lisinopril 2. Palpitations secondary to PACs/SVT 3. Atypical chest pain a. Negative DSE 10/2022 4. HLD 5. Anxiety 6. Asthma with chronic cough 7. Hx of abnormal EKG (per patient "flat line" during colonoscopy) Patient presents this admission noting having had recent exertional dizziness and chest pressure with activities. More heavy exertion while helping son clean mobile home. Date of admission approximately 1 PM developed severe chest pressure pain which persisted until relieved in the ER with sublingual nitroglycerin and aspirin. Troponins elevated and patient anticoagulated with heparin. No further chest pain overnight. No tachypalpitations dizziness or lightheadedness. Only complaint this morning is back pain and discomfort, restlessness. No fevers or chills. No history of TIA or stroke. No bleeding issues. Appetite and weight have been generally stable. No difficulty taking medications. Relatively active about home for age Allergies Allergy/AdvReac Type Severity Reaction Status Date / Time Sulfa (Sulfonamide Allergy Severe HIVES, Verified 08/21/23 09:52 Antibiotics) SWELLING atorvastatin Allergy Intermediate REDNESS,ITCHY Verified 08/21/23 09:52 RASH azithromycin Allergy Intermediate Redness of Verified 08/21/23 09:52 Skin, heart racing bee venom protein (honey bee) Allergy Intermediate WHEEZING,ITCHY Verified 08/21/23 09:52 EYES, REDNESS doxycycline Allergy Intermediate REDMITCHY Verified 08/21/23 09:52 HIVES, THROAT SWELLS niacin Allergy Intermediate UNKNOWN TO Verified 08/21/23 09:52 PT-REDNESS? pollen extracts Allergy Intermediate POLLEN,TREES, Verified 08/21/23 09:52 DUST MITES-ITCHY EYES WHEEZING propofol Allergy Intermediate LOW Verified 08/21/23 09:52 BP,"WENT OUT"-BLACKED OUT terfenadine Allergy Intermediate HEART Verified 08/21/23 09:52 PALPITATIONS lisinopril Allergy Unknown angioedema Verified 08/21/23 09:52 possibly related to lisinopril ranitidine AdvReac Intermediate headache Verified 08/21/23 09:52 sulfamethoxazole AdvReac Intermediate GI UPSET Verified 08/21/23 09:52 [From Bactrim] trimethoprim [From Bactrim] AdvReac Intermediate GI UPSET Verified 08/21/23 09:52 red beets Allergy Severe Anaphylaxis Uncoded 08/13/23 11:40 Aromatic Oils Allergy Intermediate ANY Uncoded 08/13/23 11:38 MAKE-UP,PERFUMES, COSMETICS-ITCHY EYES,WHEEZING Home Medications Medication Instructions Recorded Confirmed Type albuterol sulfate 90 mcg/actuation 2 puffs inhalation Q4H PRN 06/08/19 07/16/24 History aerosol inhaler cough,sob,wheezing #1 g cyanocobalamin (vitamin B-12) 1,000 mcg PO QAM #90 tabs 06/08/19 07/16/24 History 1,000 mcg tablet beclomethasone dipropionate 80 2 inh inhalation BID 09/02/20 07/16/24 History mcg/actuation HFA breath activated aerosol (Qvar RediHaler) cholecalciferol (vitamin D3) 25 25 mcg PO QAM 09/02/20 07/16/24 History mcg (1,000 unit) chewable tablet (Vitamin D3) levothyroxine 75 mcg tablet 75 mcg PO QAM 09/02/20 07/16/24 History amlodipine 2.5 mg tablet 2.5 mg PO QAM 08/13/23 07/16/24 History diphenhydramine HCl 25 mg capsule 25 mg PO TID PRN Allergic Reaction 08/13/23 07/16/24 History (Benadryl) epinephrine 0.1 mg/0.1 mL 0.1 mg IM UD PRN Anaphylaxis 08/13/23 07/16/24 History injection, auto-injector omeprazole 20 mg tablet,delayed 20 mg PO QAM 08/13/23 07/16/24 History release rosuvastatin 10 mg tablet 10 mg PO DAILY 07/16/24 07/16/24 History sertraline 100 mg tablet 100 mg PO DAILY 07/16/24 07/16/24 History Patient History Medical History Nonrheumatic tricuspid (valve) insufficiency Nonrheumatic aortic (valve) insufficiency Umbilical hernia Ambulatory dysfunction uses walker Asthma well controlled, no asthma attacks in the last 2 years per pt History of anesthesia reaction cardiac arrest after her multiple colonoscopies at [facility] because she was given too much medication and states she is "sensitive to medications". Did not have complications at last colonoscopy per pt. States "no anesthesia allergy, just sensitive to it". Surgical History History of D&C History of section History of laryngoscopy has "polyps" present History of bronchoscopy History of discectomy Dr Reese, details unknown by pt History of cataract surgery bilateral History of colonoscopy Family History Unknown Gastric cancer Schizophrenia Sister Crohn's disease Brother Schizophrenia Lung cancer Son Myocardial infarction Daughter Breast cancer Mother Myocardial infarction Cancer Father Lung cancer Cancer Grandmother (Maternal) Heart trouble Aunt Convulsion Social History Smoking Status: Former smoker Tobacco Type: Cigarettes Second Hand Exposure: No; Do You Dip or Chew Tobacco: No; Hx Alcohol Use: No Hx Substance Use: No Preferred Language: Cook Islander Communication Ability: Effective Spring Forger Required: No Beliefs That Will Affect Care: None Current Living Situation: Alone and Other Current Living Situation Comment: [place] 65 community Feels Safe at Home: Yes Safety Concerns: Feels Safe At This Time Assistive Devices: Denture - Upper, Glasses and Walker Review of Systems Review of Systems: All systems reviewed & are unremarkable except as noted in HPI & below Physical Exam Constitutional: + thin; no acute distress Restless Eyes: PERRL, conjunctivae normal, anicteric sclerae ENMT: external ear and nose normal, oropharynx normal Neck: trachea midline, no thyromegaly Respiratory: normal respiratory effort, lungs clear to auscultation Cardiovascular: Rate/Rhythm: regular rate and regular rhythm Heart Sounds: normal S1 and normal S2 Vessels: femoral pulses present and radial pulses present; no JVD Extremities: no edema Gastrointestinal (Abdomen): normal bowel sounds, soft, nontender, no hepatosplenomegaly Musculoskeletal: no cyanosis or clubbing, extremities motor strength 5/5 Results & Data Vital Signs (Past 12 Hours) Vital Signs Temp Pulse Pulse Resp BP Pulse Ox O2 Del Method 07/17/24 07:59 36.9 C 63 18 134/68 92 Room Air 07/17/24 07:10 72 07/17/24 03:05 36.8 C 69 16 126/72 92 Room Air 07/17/24 00:16 69 07/16/24 23:43 80 07/16/24 23:25 36.8 C 68 18 145/66 H 95 Room Air 07/16/24 22:57 36.7 C 71 18 143/57 H 92 Room Air 07/16/24 21:56 Room Air Laboratory Results Laboratory Results - last 24 hr 07/16/24 07/16/24 07/16/24 15:50 19:06 21:07 WBC 11.40 H RBC 4.63 Hgb 14.7 Hct 42.1 MCV 90.9 MCH 31.7 MCHC 34.9 RDW Std Deviation 41.1 RDW Coeff of Saroj 12.3 Plt Count 174 MPV 10.3 Immature Gran % (Auto) 0.5 Neut % (Auto) 69.3 Lymph % (Auto) 20.4 [place] % (Auto) 8.6 Eos % (Auto) 0.8 Baso % (Auto) 0.4 Neut # (Auto) 7.90 H Lymph # (Auto) 2.32 [place] # (Auto) 0.98 H Eos # (Auto) 0.09 Baso # (Auto) 0.05 Immature Gran # (Auto) 0.06 PT 10.7 INR 1.0 APTT 25 PTT Ratio 0.9 Heparin Anti-Xa, Unfract Sodium 137 Potassium 3.6 Chloride 104 Carbon Dioxide 27 Anion Gap 6 BUN 11 Creatinine 0.77 Est Cr Clr Drug Dosing 56.6 Est GFR ( Amer) 82.2 Est GFR (Non-Af Amer) 70.9 BUN/Creatinine Ratio 14.3 Glucose 93 Calcium 9.4 Troponin I High Sens 11.0 110.3 H* D 455.7 H* D Triglycerides Cholesterol LDL Cholesterol, Calc VLDL Cholesterol, Calc HDL Cholesterol Cholesterol/HDL Ratio Lipase 26 TSH 07/17/24 07/17/24 04:28 07:50 WBC 10.74 RBC 4.21 Hgb 13.3 Hct 38.2 MCV 90.7 MCH 31.6 MCHC 34.8 RDW Std Deviation 40.9 RDW Coeff of Saroj 12.3 Plt Count 147 MPV 10.3 Immature Gran % (Auto) Neut % (Auto) Lymph % (Auto) [place] % (Auto) Eos % (Auto) Baso % (Auto) Neut # (Auto) Lymph # (Auto) [place] # (Auto) Eos # (Auto) Baso # (Auto) Immature Gran # (Auto) PT INR APTT PTT Ratio Heparin Anti-Xa, Unfract 0.98 H* Sodium 137 Potassium 3.4 L Chloride 106 Carbon Dioxide 25 Anion Gap 6 BUN 9 Creatinine 0.63 Est Cr Clr Drug Dosing 65.0 Est GFR ( Amer) 95.5 Est GFR (Non-Af Amer) 82.4 BUN/Creatinine Ratio 14.3 Glucose 126 H Calcium 8.6 Troponin I High Sens 1776.4 H* D 1318.1 H* D Triglycerides 82 Cholesterol 162 LDL Cholesterol, Calc 83 VLDL Cholesterol, Calc 16 HDL Cholesterol 63 Cholesterol/HDL Ratio 2.6 Lipase TSH 1.263 Diagnostic Findings Echocardiogram 07/17/2024 Normal left ventricular size with moderate left hypertrophy, normal wall motion, EF 60-65% Aortic sclerosis without stenosis with trace aortic insufficiency ECG Additional Comments: Normal sinus rhythm at [address] segment changes (2) Chest pain Chest pain type: unspecified Qualified Code(s): R07.9 - Chest pain, unspecified
[2024-07-17] MEDS: DOCUSATE SODIUM 100 MG CAP PO SCH (11:14)
[2024-07-17 13:15] LABS: ANTI-Xa, UFH(UnfractionatedHep 0.53 IU/ml (0.3-0.7)
[2024-07-18 06:11] LABS: Basophils # (auto) 0.04 K/uL (0.00-0.20); Basophils % (auto) 0.4 %; Eosinophils # (auto) 0.12 K/uL (0.00-0.50); Eosinophils % (auto) 1.3 %; Hematocrit (blood only) 40.8 % (37.0-47.0); Hemoglobin 13.9 g/dl (12.0-16.0); Immature Granulocytes # (auto) 0.06 K/uL (0.01-0.20); Immature Granulocytes % (auto) 0.6 %; Lymphocytes # (auto) 1.98 K/uL (1.20-3.40); Lymphocytes % (auto) 21.4 %; Mean Corpuscular Hemoglobin 31.7 pg (25.0-34.0); Mean Corpuscular Hgb Conc 34.1 g/dL (32.0-36.0); Mean Corpuscular Volume 92.9 fL (80.0-100.0); Mean Platelet Volume 10.6 fL (9.4-12.4); Monocytes # (auto) 0.92 K/uL (0.11-0.59); Monocytes % (auto) 9.9 %; Neutrophils # (auto) 6.13 K/uL (1.40-6.50); Neutrophils % (auto) 66.4 %; Platelet Count 154 K/uL (130-400); RDW Coefficient of Variation 12.3 % (11.5-14.5); RDW Standard Deviation 42.4 fL (36.4-46.3); Red Blood Count 4.39 M/uL (4.20-5.40); White Blood Count 9.25 K/ul (4.8-10.8)
[2024-07-18 06:28] LABS: ANTI-Xa, UFH(UnfractionatedHep 0.37 IU/ml (0.3-0.7)
[2024-07-18 06:33] LABS: BUN Creatinine Ratio 16.9 (10-20); Creatinine Clr Calc Pharmacy 49.3 ml/min; Est GFR (African American) 75.1 ml/min; Est GFR (Non-African American) 64.8 ml/min; Potassium 4.3 mmol/L (3.5-5.1)
--- NOTE | 2024-07-18 08:07 | Hospitalist Progress Note ---
Date of Service July 18, 2024 Assessment & Plan (1) NSTEMI (non-ST elevated myocardial infarction): (2) Chest pain: Plan: Patient is 84-year-old female with PMH HTN, HLD, hypothyroidism, asthma, depression, anxiety presented to ER with c/o upper chest and neck tightness and left jaw discomfort today while cleaning. Symptoms persisted couple hours and in ER given aspirin 324mg and 1 SL nitro and patient reports relief. High sensitivity troponin 11 on admission, increased to 1776 overnight and downtrended EKG sinus rhythm, nonspecific T wave changes. Echocardiogram shows EF of 60 to 65%; moderate concentric LVH. Continue on heparin, aspirin and rosuvastatin Also on metoprolol tartate Discussed with cardiology; recommended to continue aspirin, iv heparin; possible left heart cath on Friday. Continue telemonitoring (3) Lower back pain: Plan: Patient reports lower back pain. Reported history of back pain in the past as well. Reports that the pain radiates down to the right ankle. Will start on gabapentin 100 mg twice daily for neuropathic pain; monitor progress. Discussed with patient; will hold off on imaging for the time being (4) HTN (hypertension): Plan: BP initially elevated in ER. Improved after 1 SL nitro Monitor Continue amlodipine, metoprolol (5) Hyperlipidemia: Plan: Continue rosuvastatin (6) Hypothyroidism: Plan: Continue levothyroxine (7) Asthma: Plan: No signs acute exacerbation Continue home inhalers (8) Depression with anxiety: Plan: Continue sertraline DVT Prophylaxis Heparin SQ Admit med tele Conditional code with wanting chest compressions, defibrillation and medications but does Not want intubation or ventilation as per discussion with pt Follows with Dr Terry for routine care Discussed with patient's daughter at bedside on 07/17. Answered questions/que issa. Time spent evaluating patient, direct bedside care, chart review, placing orders, interpretation of diagnostic studies, discussion with consultants, patient, and family members, as well as other required patient management activities is 50 minutes Please note the above document was generated using voice recognition software. It may contain grammatical, syntax or spelling errors. Any formal questions or concerns about the content, text or information contained within the body of this dictation should be directly addressed to the provider for clarification Admission and Anticipated Discharge Date Admission Date: July 17, 2024 Subjective Patient seen and examined at bedside. She is sitting up on the chair; not in any distress. She reports pain in her lower back radiating to the right ankle. She reports that she had similar pain before as well. She attributes the pain to uncomfortable bed. Blood pressure noted to be on lower side; IV fluid bolus of 500 cc ordered as well as maintenance fluid of 100 cc/h Review of Systems Review of Systems: All systems reviewed & are unremarkable except as noted in Subjective Physical Exam Physical Exam: General: no distress, WDWN Head: normocephalic, atraumatic Eyes: conjunctiva non-injected, anicteric ENT: normal inspection external ears, nose, mucous membranes moist Neck: supple, trachea midline Lungs: clear, no respiratory distress, no wheezing/rhonchi/rales CV: RRR, no JVD, no pretibial edema Abd: normal BS, soft, non-tender Ext: no cyanosis, no calf tenderness Neuro: A&O x 3, no focal deficits noted, normal affect Skin: warm, dry Results & Data Results & Data Vital Signs (Past 12 Hours) Vital Signs Temp Pulse Pulse Resp BP Pulse Ox O2 Del Method 07/18/24 07:40 37.4 C 63 18 152/75 H 94 Room Air 07/18/24 03:27 37.0 C 60 16 120/67 92 Room Air 07/18/24 01:02 64 07/18/24 00:15 36.5 C 61 18 143/71 H 93 Room Air (2) Chest pain Chest pain type: unspecified Qualified Code(s): R07.9 - Chest pain, unspecified (5) Hyperlipidemia Hyperlipidemia type: mixed hyperlipidemia Qualified Code(s): E78.2 - Mixed hyperlipidemia (6) Hypothyroidism Hypothyroidism type: acquired Qualified Code(s): E03.9 - Hypothyroidism, unspecified (7) Asthma Asthma complication type: unspecified Asthma persistence: unspecified Asthma severity: moderate Qualified Code(s): J45.909 - Unspecified asthma, uncomplicated
[2024-07-18] MEDS: ROSUVASTATIN CALCIUM 20 MG TAB PO SCH (08:16)
--- NOTE | 2024-07-18 10:24 | Cardiology Progress Note ---
Date of Service July 18, 2024 Assessment & Plan (1) NSTEMI (non-ST elevated myocardial infarction): (2) Chest pain: (3) HTN (hypertension): Plan 84-year-old female presents with symptoms consistent with crescendo angina, non- ST segment elevation myocardial infarction with rest chest pain, elevated troponin relieved with aspirin and nitroglycerin Patient appropriately anticoagulated with IV heparin Echocardiogram with preserved LV EKG without acute injury pattern Plan: Continue aspirin IV heparin Anticipate referral for coronary angiography Friday unless acute changes develop Increase rosuvastatin to 20 mg p.o. daily Patient may be out of bed to chair due to back discomfort Add low-dose beta-lakisha with metoprolol tartrate 12.5 mg twice per day 07/18/2024 No further cardiac complaints. No chest pain or shortness of breath. Tolerating anticoagulation. EKG for a.m. pending Main complaints are radicular pain and sciatica of the left leg aggravated by bedbound Patient out of bed to chair currently Anticipate coronary angiography a.m. Continue current regimen Admission and Anticipated Discharge Date Admission Date: July 17, 2024 Subjective Patient seen and examined, chart, medications, telemetry reviewed No further chest pain or shortness of breath Is complaining of persistent back pain as well as radicular complaints with pain radiating to the left ankle No bleeding issues on anticoagulation Heart rate and blood pressure controlled Review of Systems Review of Systems: All systems reviewed & are unremarkable except as noted in Subjective Physical Exam Constitutional: + thin; no acute distress Eyes: PERRL, conjunctivae normal, anicteric sclerae ENMT: external ear and nose normal, oropharynx normal Neck: trachea midline, no thyromegaly Respiratory: normal respiratory effort, lungs clear to auscultation Cardiovascular: Rate/Rhythm: regular rate and regular rhythm Heart Sounds: normal S1 and normal S2 Vessels: femoral pulses present and radial pulses present; no JVD Extremities: no edema Gastrointestinal (Abdomen): normal bowel sounds, soft, nontender, no hepatosplenomegaly Musculoskeletal: no cyanosis or clubbing, extremities motor strength 5/5 Results & Data Vital Signs (Past 12 Hours) Vital Signs Temp Pulse Pulse Resp BP Pulse Ox O2 Del Method 07/18/24 07:40 37.4 C 63 18 152/75 H 94 Room Air 07/18/24 03:27 37.0 C 60 16 120/67 92 Room Air 07/18/24 01:02 64 07/18/24 00:15 36.5 C 61 18 143/71 H 93 Room Air Laboratory Results Laboratory Results - last 24 hr 07/17/24 07/18/24 12:27 05:50 WBC 9.25 RBC 4.39 Hgb 13.9 Hct 40.8 MCV 92.9 MCH 31.7 MCHC 34.1 RDW Std Deviation 42.4 RDW Coeff of Saroj 12.3 Plt Count 154 MPV 10.6 Immature Gran % (Auto) 0.6 Neut % (Auto) 66.4 Lymph % (Auto) 21.4 [place] % (Auto) 9.9 Eos % (Auto) 1.3 Baso % (Auto) 0.4 Neut # (Auto) 6.13 Lymph # (Auto) 1.98 [place] # (Auto) 0.92 H Eos # (Auto) 0.12 Baso # (Auto) 0.04 Immature Gran # (Auto) 0.06 Heparin Anti-Xa, Unfract 0.53 0.37 Sodium 140 Potassium 4.3 D Chloride 105 Carbon Dioxide 31 Anion Gap 4 BUN 14 Creatinine 0.83 Est Cr Clr Drug Dosing 49.3 Est GFR ( Amer) 75.1 Est GFR (Non-Af Amer) 64.8 BUN/Creatinine Ratio 16.9 Glucose 106 H Calcium 9.0 (2) Chest pain Chest pain type: unspecified Qualified Code(s): R07.9 - Chest pain, unspecified
[2024-07-18] MEDS: LACTATED RINGER'S 500 ML IV ONE (11:36)
[2024-07-18] MEDS: GABAPENTIN 100 MG CAP PO SCH (11:37)
[2024-07-18] MEDS: LACTATED RINGER'S 1,000 ML IV SCH (12:56)
--- NOTE | 2024-07-18 13:04 | Electrocardiogram Report ---
Test Reason : Blood Pressure : */* mmHG Vent. Rate : 66 BPM Atrial Rate : 66 BPM P-R Int : 216 ms QRS Dur : 80 ms QT Int : 412 ms P-R-T Axes : 54 1 90 degrees QTcB Int : 431 ms Sinus rhythm with 1st degree A-V block Nonspecific T wave abnormality Abnormal ECG When compared with ECG of 04-Nov-2023 14:28, VT interval has increased Confirmed by Erickson Schneider ([id number]) on 07/18/2024 1:03:37 PM Referred By: REFERRED SELF Confirmed By: Erickson Schneider
--- NOTE | 2024-07-18 13:15 | Electrocardiogram Report ---
Test Reason : Blood Pressure : */* mmHG Vent. Rate : 68 BPM Atrial Rate : 68 BPM P-R Int : 206 ms QRS Dur : 80 ms QT Int : 434 ms P-R-T Axes : 55 21 74 degrees QTcB Int : 461 ms Sinus rhythm with Premature atrial complexes Nonspecific T wave abnormality Abnormal ECG When compared with ECG of 16-Jul-2024 15:43, (unconfirmed) Premature atrial complexes are now Present Nonspecific T wave abnormality, improved in Lateral leads Confirmed by Erickson Schneider ([id number]) on 07/18/2024 1:15:35 PM Referred By: REFERRED SELF Confirmed By: Erickson Schneider
--- NOTE | 2024-07-18 13:22 | Electrocardiogram Report ---
Test Reason : Blood Pressure : */* mmHG Vent. Rate : 63 BPM Atrial Rate : 63 BPM P-R Int : 206 ms QRS Dur : 76 ms QT Int : 462 ms P-R-T Axes : 38 -5 65 degrees QTcB Int : 472 ms Normal sinus rhythm Nonspecific T wave abnormality Abnormal ECG When compared with ECG of 16-Jul-2024 22:41, (unconfirmed) Premature atrial complexes are no longer Present Confirmed by Erickson Schneider ([id number]) on 07/18/2024 1:22:14 PM Referred By: REFERRED SELF Confirmed By: Erickson Schneider
[2024-07-18] MEDS: ALBUTEROL HFA 8 GM INHALER INH PRN (20:36)
[2024-07-19 06:01] LABS: Basophils # (auto) 0.05 K/uL (0.00-0.20); Basophils % (auto) 0.7 %; Eosinophils # (auto) 0.16 K/uL (0.00-0.50); Eosinophils % (auto) 2.3 %; Hemoglobin 13.6 g/dl (12.0-16.0); Immature Granulocytes # (auto) 0.07 K/uL (0.01-0.20); Lymphocytes # (auto) 1.95 K/uL (1.20-3.40); Lymphocytes % (auto) 27.5 %; Mean Corpuscular Hemoglobin 31.6 pg (25.0-34.0); Mean Platelet Volume 10.1 fL (9.4-12.4); Monocytes # (auto) 0.68 K/uL (0.11-0.59); Monocytes % (auto) 9.6 %; Neutrophils # (auto) 4.19 K/uL (1.40-6.50); Neutrophils % (auto) 58.9 %; Platelet Count 164 K/uL (130-400); RDW Coefficient of Variation 12.3 % (11.5-14.5)
[2024-07-19 06:08] LABS: BUN Creatinine Ratio 15.4 (10-20); Creatinine Clr Calc Pharmacy 44.7 ml/min; Est GFR (African American) 67.1 ml/min; Est GFR (Non-African American) 57.9 ml/min; Potassium 4.1 mmol/L (3.5-5.1)
[2024-07-19 06:20] LABS: ANTI-Xa, UFH(UnfractionatedHep 0.29 IU/ml (0.3-0.7)
--- NOTE | 2024-07-19 08:59 | Cardiology Progress Note ---
Date of Service July 19, 2024 Assessment & Plan (1) NSTEMI (non-ST elevated myocardial infarction): (2) Chest pain: (3) HTN (hypertension): Plan 84-year-old female presents with symptoms consistent with crescendo angina, non- ST segment elevation myocardial infarction with rest chest pain, elevated troponin relieved with aspirin and nitroglycerin Patient appropriately anticoagulated with IV heparin Echocardiogram with preserved LV EKG without acute injury pattern. Patient lives alone , independently. Her daughter , Anna, is going to come to the hospital this am. Plan: NPO. Hold IV heparin for cardiac catheterization. Jagjit reviewed with Dr Green of interventional cardiology. Continue ASA , metoprolol, rosuvastatin. Patient with history of "flat line" during colonoscopy. Rhythm stable on floor. Admission and Anticipated Discharge Date Admission Date: July 17, 2024 Subjective Patient seen in cardiology follow up. Feeling well sitting up in the chair. Denies chest pain or shortness of breath. Has chronic low back pain, but this is OK at present without her heating pad. Telemetry reveals SR in the 60s. Review of Systems Review of Systems: All systems reviewed & are unremarkable except as noted in HPI & below Physical Exam Constitutional: + thin; no acute distress Eyes: PERRL, conjunctivae normal, anicteric sclerae ENMT: external ear and nose normal, oropharynx normal Neck: trachea midline, no thyromegaly Respiratory: normal respiratory effort, lungs clear to auscultation Cardiovascular: Rate/Rhythm: regular rate and regular rhythm Heart Sounds: normal S1 and normal S2 Vessels: femoral pulses present and radial pulses present; no JVD Extremities: no edema Gastrointestinal (Abdomen): normal bowel sounds, soft, nontender, no hepatosplenomegaly Musculoskeletal: no cyanosis or clubbing, extremities motor strength 5/5 Results & Data Vital Signs (Past 12 Hours) Vital Signs Temp Pulse Pulse Resp BP BP Pulse Ox 07/19/24 07:36 60 07/19/24 07:33 36.7 C 61 18 143/71 H 93 07/19/24 03:19 36.8 C 59 L 18 117/71 92 07/18/24 22:58 60 07/18/24 22:32 36.5 C 63 16 136/72 95 O2 Del Method 07/19/24 07:36 07/19/24 07:33 Room Air 07/19/24 03:19 Room Air 07/18/24 22:58 07/18/24 22:32 Room Air Laboratory Results CBC 07/19/24 Range/Units 05:36 WBC 7.10 (4.8-10.8) K/ul RBC 4.30 (4.20-5.40) M/uL Hgb 13.6 (12.0-16.0) g/dl Hct 40.0 (37.0-47.0) % Plt Count 164 (130-400) K/uL Neut # (Auto) 4.19 (1.40-6.50) K/uL Lymph # (Auto) 1.95 (1.20-3.40) K/uL [place] # (Auto) 0.68 H (0.11-0.59) K/uL Eos # (Auto) 0.16 (0.00-0.50) K/uL Baso # (Auto) 0.05 (0.00-0.20) K/uL Comprehensive Metabolic Panel 07/19/24 Range/Units 05:36 Sodium 142 (136-145) mmol/L Potassium 4.1 (3.5-5.1) mmol/L Chloride 106 (98-107) mmol/L Carbon Dioxide 31 (21-32) mmol/L BUN 14 (6-23) mg/dl Creatinine 0.91 (0.6-1.2) mg/dl Glucose 101 H (70-99(Fasting)) mg/dl Calcium 9.0 (8.6-10.3) mg/dl Intake and Output 07/18/24 07/19/24 07/19/24 22:59 06:59 14:59 Intake Total 462.9 / 2639.4 1567.0 / 2639.4 9.5 / 9.5 Balance 462.9 / 2639.4 1567.0 / 2639.4 9.5 / 9.5 Intake: IV 222.9 / 1439.4 1207.0 / 1439.4 9.5 / 9.5 Heparin Sodium/Dextrose 25,000 222.9 / 439.4 207.0 / 439.4 9.5 / 9.5 units In 500 ml @ 950 UNITS/HR 19 mls/hr IV .Q24H [facility] Rx#: [id number] Lactated Ringer's 1,000 ml @ 80 1000 / 1000 mls/hr IV .[id number] [facility] Rx#: [id number] Oral 240 / 1200 360 / 1200 Other: Other Intake Source NPO # Unmeasured Voids 1 1 Weight 82.2 kg Weight Measurement Method Standing Scale (2) Chest pain Chest pain type: unspecified Qualified Code(s): R07.9 - Chest pain, unspecified
[2024-07-19] MEDS: ASPIRIN 81 MG CHEW PO STA (09:18)
--- NOTE | 2024-07-19 10:03 | Pre Anesthesia Assessment ---
Date of Service July 19, 2024 Pre Sedation Assessment Vital Signs Temp Pulse Pulse Pulse Resp BP BP 07/19/24 09:12 62 16 139/62 07/19/24 07:36 60 07/19/24 07:33 36.7 C 61 18 143/71 H 07/19/24 03:19 36.8 C 59 L 18 117/71 07/18/24 22:58 60 07/18/24 22:32 36.5 C 63 16 136/72 07/18/24 20:38 56 L 17 07/18/24 19:29 36.8 C 56 L 18 100/60 07/18/24 15:12 36.6 C 59 L 18 126/68 07/18/24 12:49 56 L 18 95/58 L 07/18/24 11:17 36.8 C 53 L 18 86/51 L Pulse Ox O2 Del Method 07/19/24 09:12 93 Room Air 07/19/24 07:36 07/19/24 07:33 93 Room Air 07/19/24 03:19 92 Room Air 07/18/24 22:58 07/18/24 22:32 95 Room Air 07/18/24 20:38 95 07/18/24 19:29 94 Room Air 07/18/24 15:12 93 Room Air 07/18/24 12:49 94 Room Air 07/18/24 11:17 94 Room Air Cardiovascular Additional Comments: Regular rate and rhythm Grade 1/6 SM No edema Respiratory normal respiratory effort, lungs clear to auscultation Pre-Sedation Airway Assessment Smoking Status: Former smoker Short, Thick Neck: No Thyromental Distance: > or= 3.5 Finger Breadths Oral Cavity: + Dentures Mallampati Class: II ASA: ASA3 NPO Status Date of Last Intake of Fluids: 07/19/24 Time of Last Intake of Fluids: 08:00 Last Oral Intake of Fluids Comment: sips with meds Date of Last Intake of Solid Food: 07/18/24 Notes The planned sedation has been discussed with the patient. Informed Consent was obtained. I have identified the patient, determined the appropriateness of sedation and have assessed the patient immediately prior to the procedure. All medicine(s) and interventions are by my order. History of hypotension with propofol sedation. "Flatline" according to patient.
[2024-07-19] MEDS: fentaNYL citrate PF 100 MCG/2 ML VIAL ONE (10:27)
[2024-07-19] MEDS: MIDAZOLAM HCL 1 MG/ML 2ML VIAL ONE (10:28)
[2024-07-19] MEDS: diphenhydrAMINE 50 MG/ML VIAL ONE ×2 (10:28→10:29)
[2024-07-19] MEDS: NITROGLYCERIN/D5W 100MCG/ML 20ML SYR ONE (10:28)
[2024-07-19] MEDS: niCARdipine HCL INJ 2.5 MG/ML 10 ML AMP ONE (10:28)
[2024-07-19] MEDS: OPTIRAY 350 ONE (10:56)
[2024-07-19] MEDS: HEPARIN (PORCINE) 1000 UNIT/ML 10 ML (CATH LAB USE ONLY) ONE ×2 (10:56→11:02)
[2024-07-19] MEDS: hydrALAZINE HCL 20 MG/ML VIAL ONE (11:02)
[2024-07-19] MEDS: LIDOCAINE 1% LOCAL 20 ML VIAL ONE (11:02)
[2024-07-19] MEDS: TICAGRELOR 90 MG TAB ONE (11:03)
--- NOTE | 2024-07-19 11:08 | Hospitalist Progress Note ---
Date of Service July 19, 2024 Assessment & Plan (1) NSTEMI (non-ST elevated myocardial infarction): (2) Chest pain: Plan: Patient is 84-year-old female with PMH HTN, HLD, hypothyroidism, asthma, depression, anxiety presented to ER with c/o upper chest and neck tightness and left jaw discomfort today while cleaning. Symptoms persisted couple hours and in ER given aspirin 324mg and 1 SL nitro and patient reports relief. High sensitivity troponin 11 on admission, increased to 1776 overnight and downtrended EKG sinus rhythm, nonspecific T wave changes. Echocardiogram shows EF of 60 to 65%; moderate concentric LVH. Plan for left heart cath today as per cardiology Continue on aspirin and rosuvastatin Metoprolol on hold due to low BP Continue telemonitoring (3) Lower back pain: Plan: Patient reports lower back pain. Reported history of back pain in the past as well. Reports that the pain radiates down to the right ankle. was given trial of gabapentin on 07/18; reported improvement in pain. However, patient reported to be delirious as per RN. Continue tylenol as needed (4) HTN (hypertension): Plan: BP initially elevated in ER. Improved after 1 SL nitro Episode of low bp on 07/18, hold amlodipine and metoprolol (5) Hyperlipidemia: Plan: Continue rosuvastatin (6) Hypothyroidism: Plan: Continue levothyroxine (7) Asthma: Plan: No signs acute exacerbation Continue home inhalers (8) Depression with anxiety: Plan: Continue sertraline DVT Prophylaxis Heparin SQ Admit med tele Conditional code with wanting chest compressions, defibrillation and medications but does Not want intubation or ventilation as per discussion with pt Follows with Dr Terry for routine care Time spent evaluating patient, direct bedside care, chart review, placing orders, interpretation of diagnostic studies, discussion with consultants, patient, and family members, as well as other required patient management activities is 50 minutes Please note the above document was generated using voice recognition software. It may contain grammatical, syntax or spelling errors. Any formal questions or concerns about the content, text or information contained within the body of this dictation should be directly addressed to the provider for clarification Admission and Anticipated Discharge Date Admission Date: July 17, 2024 Subjective Patient seen and examined at bedside She is sitting up on the chair at the side of the bed; not in distress She denies any chest pain, shortness of breath or dizziness Plan for left heart cath today. Review of Systems Review of Systems: All systems reviewed & are unremarkable except as noted in Subjective Physical Exam Physical Exam: General: no distress, WDWN Head: normocephalic, atraumatic Eyes: conjunctiva non-injected, anicteric ENT: normal inspection external ears, nose, mucous membranes moist Neck: supple, trachea midline Lungs: clear, no respiratory distress, no wheezing/rhonchi/rales CV: RRR, no JVD, no pretibial edema Abd: normal BS, soft, non-tender Ext: no cyanosis, no calf tenderness Neuro: A&O x 3, no focal deficits noted, normal affect Skin: warm, dry Results & Data Results & Data Vital Signs (Past 12 Hours) Vital Signs Temp Pulse Pulse Pulse Resp BP BP 07/19/24 09:12 62 16 139/62 07/19/24 07:36 60 07/19/24 07:33 36.7 C 61 18 143/71 H 07/19/24 03:19 36.8 C 59 L 18 117/71 Pulse Ox O2 Del Method 07/19/24 09:12 93 Room Air 07/19/24 07:36 07/19/24 07:33 93 Room Air 07/19/24 03:19 92 Room Air (2) Chest pain Chest pain type: unspecified Qualified Code(s): R07.9 - Chest pain, unspecified (5) Hyperlipidemia Hyperlipidemia type: mixed hyperlipidemia Qualified Code(s): E78.2 - Mixed hyperlipidemia (6) Hypothyroidism Hypothyroidism type: acquired Qualified Code(s): E03.9 - Hypothyroidism, unspecified (7) Asthma Asthma severity: moderate Asthma persistence: unspecified Asthma complication type: unspecified Qualified Code(s): J45.909 - Unspecified asthma, uncomplicated
--- NOTE | 2024-07-19 11:09 | Post Anesthesia Assessment ---
Date of Service July 19, 2024 Post Sedation Assessment Vital Signs Temp Pulse Pulse Pulse Resp BP BP 07/19/24 09:12 62 16 139/62 07/19/24 07:36 60 07/19/24 07:33 36.7 C 61 18 143/71 H 07/19/24 03:19 36.8 C 59 L 18 117/71 07/18/24 22:58 60 07/18/24 22:32 36.5 C 63 16 136/72 07/18/24 20:38 56 L 17 07/18/24 19:29 36.8 C 56 L 18 100/60 07/18/24 15:12 36.6 C 59 L 18 126/68 07/18/24 12:49 56 L 18 95/58 L 07/18/24 11:17 36.8 C 53 L 18 86/51 L Pulse Ox O2 Del Method 07/19/24 09:12 93 Room Air 07/19/24 07:36 07/19/24 07:33 93 Room Air 07/19/24 03:19 92 Room Air 07/18/24 22:58 07/18/24 22:32 95 Room Air 07/18/24 20:38 95 07/18/24 19:29 94 Room Air 07/18/24 15:12 93 Room Air 07/18/24 12:49 94 Room Air 07/18/24 11:17 94 Room Air Recovery Score Activity: Moves 4 extremities Respiration: Deep Breath/Cough Circulation: +/-20% PreAnes Value Consciousness: Fully Awake Oxygen Saturation: > 92% On Room Air Discharge Sedation Level of Care: Fast Track Phase II Post Sedation Plan On clinical assessment, the patient appears to have tolerated the sedation without complications. Patient is recovering as anticipated. Patient will continue to be monitored by nursing and may be discharged when sedation discharge criteria are met per below protocol. Upon Completions of procedure up to 15 minutes continue every 5 minute vital signs and the P.A.R. score; then discharge to a Phase I or Fast Track to Phase II per the following guidelines: * Discharge Patient to appropriate Phase II area if PAR is 8 or greater or return to pre- procedure baseline. The post - procedure orders will be as directed. * If PAR score is less than 8 or not return to pre-procedure baseline then patient will follow Phase I monitoring till PAR is reached for Phase II. The Phase I may be done in procedure room or may call to secure a Phase I area. * If naloxone or flumazenil are used for reversal, hold in Phase I for continued monitoring from when last reversal dose was given for a minimum of 60 minutes or longer pending the nurse and/or physician discretion of patient condition before discharge to Phase II. Please call the Sedation Physician to re-evaluate and complete post-note for discharge to Phase II area. Do NOT discharge from procedure sedation or Phase 1 until post- sedation evaluation note is complete by procedure /sedation MD Sedation Discharge Instructions to be given to the patient at discharge to home. [facility] [place]odes (Charges) Indication for Procedure Indication for procedure: NSTEMI Sedation/Anesthesia Procedure 1: Sedation/Anesthesia: 55723 Mod Sedation by the same physician;Init15 Min Child Age 5 & Up (INITIAL 15 MIN ,START 1009) Procedure 2: Sedation/Anesthesia: 76804 Mod Sedation by the same physician; Ea [id number] Minutes (ADDITIONAL 38 MIN, END 1102)
[2024-07-19] MEDS: IODIXANOL (VISIPAQUE) 320 MG/ML 100ML IV ONE (11:49)
--- NOTE | 2024-07-19 13:03 | Cardiac Catheterization ---
[facility] Data: Machinery Rigger Cardiac Status Clinical evaluation leading to the procedure CAD Presenation: Non STEMI Anginal Classification: CCS IV Heart Failure: No Cardiogenic Shock within 24 Hours: No Cardiac Arrest within 24 Hours: No Imaging Studies Past 6 Months: No Coronary Anatomy Dominant: Right Left Main (% Stenosis): Normal LAD (% Stenosis): Normal D1 (% Stenosis): Normal Circumflex (% Stenosis): Normal OM1 (% Stenosis): Normal RCA (% Stenosis): Proximal (95% hazy) and Mid (50% diffuse) R PDA (% Stenosis): Normal R PL1 (% Stenosis): Normal Ramus (% Stenosis): Normal Diagnostic Physicians Name: Wilber Green MD, PhD Closure Device Percutaneous Entry Location: Radial and femoral Closure Device: Angio-Seal and Radial Band Recommendations: Medical Therapy and/or Counseling and PCI without planned CABG PCI Indication: PCI for high risk Non-MERLY Lesion Segment Name: Proximal to mid RCA Culprit Artery: Yes Stenosis Prior to Rx (%): 95% Chronic Total Occlusion: No Pre-Procedure JEREMÍAS Flow: 2 Previously Treated Lesion: No Lesion Complexity: Non-High/Non-C Lesion Length (mm): 18 Thrombus Present: Yes Bifurcation Lesion: No Guidewire Across Lesion: Yes Intraprocedure Events Significant Disection: No Perforation: No Cardiac Cath Procedure Full Procedure Date July 19, 2024 Pre-Procedure Diagnosis Pre-Procedure Diagnosis: Non STEMI AUC Score AUC Score: 07 Post-Procedure Diagnosis Post-Procedure Diagnosis: Severe CAD and Successful PCI Procedure(s) Performed Procedure(s) Performed: Coronary Angiography, Drug Eluting Stent and Ultrasound Guided Vascular Access Directional Bore Operator Wilber Green MD, PhD Estimated Blood Loss Estimated Blood Loss: 10 cc Medication(s) Medication(s): Diphenhydramine, Heparin, Hydralazine, Lidocaine 1%, Nicardipine and Nitroglycerin Summary of Findings Brief description: Patient was brought to the cardiac catheterization suite where she was shaved and prepped in a sterile fashion. Sedated using IV Versed and fentanyl. Soft tissues of the right wrist were anesthetized using 2 mL of 1% Xylocaine. The right radial artery was accessed with a modified Seldinger technique and a 6 Portuguese radial artery glide sheath was placed. We attempted to advance the diagnostic catheter (5 Portuguese [place] 4) over the J-wire but this was unsuccessful. We then switched to a Wholey wire but again became unable to pass above the antecubital fossa secondary to tortuosity in the artery. Decision was made to abandon further attempts at radial approach. Diagnostic catheter and wire were removed. Soft tissue the right groin were anesthetized using 10 mL of 1% Xylocaine. Using ultrasound for guidance (image saved), the right femoral artery was access ed and a 5 Portuguese femoral artery sheath was placed. All catheters were advanced and exchanged over a 0.035 J-tip wire. Left coronary angiography in orthogonal views with a 5 Portuguese JL 4 diagnostic c atheter. Right coronary angiography in orthogonal views with a 5 Portuguese JR4 diagnostic catheter. Decision was made to proceed with PCI. Diagnostic catheters were removed. 5 Portuguese sheath was exchanged for a 6 Portuguese femoral artery sheath. ACT was checked and additional heparin was provided as needed throughout the case to maintain therapeutic anticoagulation. A 6 Portuguese AR-1 guide catheter was advanced over the J-wire and then used to engage the right coronary artery. BMW reversal guidewire was advanced through the guide catheter and under fluoroscopic guidance was positioned distally in the RCA. Lesion was predilated with a 2.5 x 12 mm trek balloon at 14 angelique. A 3.0 x 18 Regis drug-eluting stent was advanced and positioned across the lesion where it was deployed at 18 angelique. Stent balloon was removed. A 3.25 x 8 mm NC Iain balloon was advanced and the midportion of the stent as well as the proximal portion of the stent were each postdilated at 16 angelique. Noncompliant balloon was removed and care coronary angiography was performed. Patient was provided intracoronary nitroglycerin. Repeat angiography was performed. Decision was made to add additional stent in the mid segment and an overlapped manner. A 2.75 x 12 mm [place] drug-eluting stent was advanced and positioned across the mid RCA stenosis with its proximal portion within the distal portion of the initial stent. The stent was deployed at 12 angelique. Stent balloon was pulled back a few millimeters and the stent balloon was then inflated up to 20 angelique. Stent balloon was then pulled back so that it distal portion was only across the overlap segment and this was postdilated to 22 angelique (3.24 mm). Balloon was then removed. Coronary angiography performed with the guidewire in place. Guidewire removed and final angiographic evaluation performed. Guide catheter was removed over the J-wire. Limited right femoral artery angiography was performed to evaluate for closure. Findings were favorable, therefore, the femoral artery sheath was exchanged for a 6 Portuguese Angio-Seal closure device. This was deployed in the recommended fashion. We obtained immediate hemostasis and the patient remained hemodynamically stable. The radial artery sheath was then removed and hemostasis was obtained using the TR band. Patient was then transported to the recovery area. This ended the case. Coronary angiography findings: MNY-bxopy-hkepvdf vessel trifurcating into LAD, circumflex, and ramus. No angiographically significant disease. DWD-oidli-veqgala and transapical. Gives a large multi branching first diagonal. There is mild luminal irregularities in the LAD and its branches. SZl-qkhml-mqkjxqb and nondominant. Travels in AV groove and then becomes a large branching OM1. After this the AV groove circumflex becomes smaller and terminates distally. There is no more than mild luminal irregularities in the circumflex and its branches. Ramus-this is small to medium in caliber and branches distally. No angiographically evident disease. IES-jicvl-cfvbubj and dominant vessel. Anterior takeoff. Proximally there is up to 95% hazy stenosis with apparent thrombus just before the RV marginal branch. The mid LAD has diffuse mild disease up to 50% stenosis. Distally the re is luminal irregularities and the vessel then bifurcates into the PDA and posterolateral branches. There is JEREMÍAS II flow beyond the proximal LAD lesion. This is the culprit for non-ST elevation VT. PCI-proximal through mid RCA 0% residual stenosis post PCI No evidence of dissection or perforation post PCI JEREMÍAS-3 flow post PCI Summary: 1. Severe proximal RCA stenosis with thrombosis is culprit for non-ST elevation VT. 2. Successful PCI with implantation of 2 overlapped drug-eluting stents covering the proximal lesion as well as residual mid vessel stenosis. 3. Dual antiplatelet therapy with aspirin 81 mg daily and Brilinta 90 mg p.o. twice daily is recommended for 1 to 2 years. 4. Guideline directed medical therapy for secondary prevention of coronary disease to include low-dose aspirin, high intensity statin therapy, beta- lakisha, plus or minus MINNA inhibitor/ARB as determined by the primary emergency dept tech. Hemodynamics Rest Ao:: 156/69 mmHg Final Ao: 175/71 mmHg LV: Not performed Recommendations Recommendations: Medical Therapy and/or Counseling and PCI without planned CABG Radiation Exposure (mGy) 1977 mGy, fluoroscopy time 13.3 minutes Contrast (mls) 190 cc Anesthesia 50 mg IV Benadryl, start time 1009, end time 1102 Procedural Complication(s) None Disposition Machinery Rigger Holding/Recovery I attest to the content of the Intraoperative Record and any orders documented therein. Any exceptions are noted below. [facility] Card Cath Procedure Codes Cardiac Catheterization Procedure 1: Cardiovascular Cath Procedures: 79662 Coronaries Therapeutic Services & Ancillary Procedure 1: Cardiovascular Tx and Anc Procedures: 99378 Ultrasonic Guidance Vascular Access Moderate Sedation Procedure 1: Sedation/Anesthesia: 60472 Mod Sedation by the same physician;Init15 Min Child Age 5 & Up (Initial 15 minutes, start time 1009) Procedure 2: Sedation/Anesthesia: 77118 Mod Sedation by the same physician; Ea [id number] Minutes (Additional 38 min, end time 1102) Stenting Procedure 1: Cardiovascular Stent Procedures: 30623 Perc transluminal revascularization of acute sub/total occl, aMI (RCA) PG Care Time/CCT Total # of Minutes Spent Total Time Spent with Patient: Total time spent is greater than 50% in coordination of care (as documented) at patient's floor/unit and/or counseling patient:
[2024-07-19 13:30] LABS: ANTI-Xa, UFH(UnfractionatedHep 0.98 IU/ml (0.3-0.7)
[2024-07-19 16:17] VITALS: RESP 18
[2024-07-19] MEDS: TICAGRELOR 90 MG TAB PO SCH (19:24)
[2024-07-20 05:38] LABS: Basophils # (auto) 0.03 K/uL (0.00-0.20); Basophils % (auto) 0.5 %; Eosinophils # (auto) 0.15 K/uL (0.00-0.50); Eosinophils % (auto) 2.3 %; Hematocrit (blood only) 39.9 % (37.0-47.0); Hemoglobin 13.5 g/dl (12.0-16.0); Immature Granulocytes # (auto) 0.06 K/uL (0.01-0.20); Immature Granulocytes % (auto) 0.9 %; Lymphocytes # (auto) 1.41 K/uL (1.20-3.40); Mean Corpuscular Hemoglobin 31.5 pg (25.0-34.0); Mean Corpuscular Hgb Conc 33.8 g/dL (32.0-36.0); Mean Corpuscular Volume 93.2 fL (80.0-100.0); Monocytes # (auto) 0.65 K/uL (0.11-0.59); Monocytes % (auto) 10.1 %; Neutrophils # (auto) 4.11 K/uL (1.40-6.50); Neutrophils % (auto) 64.2 %; Platelet Count 174 K/uL (130-400); RDW Coefficient of Variation 12.5 % (11.5-14.5); RDW Standard Deviation 42.8 fL (36.4-46.3); Red Blood Count 4.28 M/uL (4.20-5.40); White Blood Count 6.41 K/ul (4.8-10.8)
[2024-07-20 05:52] LABS: BUN Creatinine Ratio 12.9 (10-20); Calcium 9.1 mg/dl (8.6-10.3); Est GFR (African American) 65.4 ml/min; Est GFR (Non-African American) 56.4 ml/min; Potassium 4.1 mmol/L (3.5-5.1)
[2024-07-20 06:00] LABS: ANTI-Xa, UFH(UnfractionatedHep < 0.10 IU/ml (0.3-0.7)
--- NOTE | 2024-07-20 06:15 | Electrocardiogram Report ---
Test Reason : Blood Pressure : */* mmHG Vent. Rate : 58 BPM Atrial Rate : 58 BPM P-R Int : 210 ms QRS Dur : 72 ms QT Int : 464 ms P-R-T Axes : 53 29 64 degrees QTcB Int : 455 ms Sinus bradycardia with 1st degree A-V block Otherwise normal ECG When compared with ECG of 17-Jul-2024 06:13, (unconfirmed) No significant change was found Confirmed by Erickson Schneider ([id number]) on 07/20/2024 6:15:04 AM Referred By: REFERRED SELF Confirmed By: Erickson Schneider
--- NOTE | 2024-07-20 07:02 | Electrocardiogram Report ---
Test Reason : Blood Pressure : */* mmHG Vent. Rate : 68 BPM Atrial Rate : 68 BPM P-R Int : 204 ms QRS Dur : 76 ms QT Int : 448 ms P-R-T Axes : 74 42 85 degrees QTcB Int : 476 ms Normal sinus rhythm Nonspecific ST and T wave abnormality Abnormal ECG When compared with ECG of 18-Jul-2024 12:33, (unconfirmed) Nonspecific T wave abnormality now evident in Lateral leads Confirmed by Erickson Schneider ([id number]) on 07/20/2024 7:02:39 AM Referred By: REFERRED SELF Confirmed By: Erickson Schneider
[2024-07-20 07:15] VITALS: TEMP 98.1
[2024-07-20 11:20] VITALS: BP 114/64; PULSE 67
[2024-07-20 11:43] VITALS: O2SAT 96
--- NOTE | 2024-07-20 12:23 | Cardiology Progress Note ---
Date of Service July 20, 2024 Assessment & Plan (1) NSTEMI (non-ST elevated myocardial infarction): (2) HTN (hypertension): (3) Hyperlipidemia: Plan 84-year-old female presents with symptoms consistent with crescendo angina, non- ST segment elevation myocardial infarction with rest chest pain, elevated troponin relieved with aspirin and nitroglycerin Patient appropriately anticoagulated with IV heparin Echocardiogram with preserved LV Plan: Stable for discharge on the following medications. ASA 81 mg daily -lifelong therapy Brilinta 90 mg BID x 1 year No beta lakisha due to baseline bradycardia. Resume [employer] amlodipine 2.5 mg daily at discharge Rosuvastatin 20 mg daily. Admission and Anticipated Discharge Date Admission Date: July 17, 2024 Subjective Patient seen in cardiology follow up. Feels well. Walked in hallway without chest pain. Daughter, Anna, accompanies her at the bedside. Telemetry reveals SR in the 60s. Review of Systems Review of Systems: All systems reviewed & are unremarkable except as noted in HPI & below Physical Exam Constitutional: + thin; no acute distress Eyes: PERRL, conjunctivae normal, anicteric sclerae ENMT: external ear and nose normal, oropharynx normal Neck: trachea midline, no thyromegaly Respiratory: normal respiratory effort, lungs clear to auscultation right radial and right groin access sites, clean , dry, and intact. Cardiovascular: Rate/Rhythm: regular rate and regular rhythm Heart Sounds: normal S1 and normal S2 Vessels: femoral pulses present and radial pulses present; no JVD Extremities: no edema Gastrointestinal (Abdomen): normal bowel sounds, soft, nontender, no hepatosplenomegaly Musculoskeletal: no cyanosis or clubbing, extremities motor strength 5/5 Results & Data Vital Signs (Past 12 Hours) Vital Signs Temp Pulse Pulse Resp BP Pulse Ox Pulse Ox 07/20/24 11:33 96 07/20/24 11:19 36.7 C 67 18 114/64 94 07/20/24 07:31 61 07/20/24 07:14 36.7 C 62 18 139/68 96 07/20/24 04:10 36.6 C 59 L 18 139/66 96 O2 Del Method 07/20/24 11:33 07/20/24 11:19 Room Air 07/20/24 07:31 07/20/24 07:14 Room Air 07/20/24 04:10 Room Air Laboratory Results CBC 07/20/24 Range/Units 05:21 WBC 6.41 (4.8-10.8) K/ul RBC 4.28 (4.20-5.40) M/uL Hgb 13.5 (12.0-16.0) g/dl Hct 39.9 (37.0-47.0) % Plt Count 174 (130-400) K/uL Neut # (Auto) 4.11 (1.40-6.50) K/uL Lymph # (Auto) 1.41 (1.20-3.40) K/uL [place] # (Auto) 0.65 H (0.11-0.59) K/uL Eos # (Auto) 0.15 (0.00-0.50) K/uL Baso # (Auto) 0.03 (0.00-0.20) K/uL Comprehensive Metabolic Panel 07/20/24 Range/Units 05:21 Sodium 140 (136-145) mmol/L Potassium 4.1 (3.5-5.1) mmol/L Chloride 105 (98-107) mmol/L Carbon Dioxide 29 (21-32) mmol/L BUN 12 (6-23) mg/dl Creatinine 0.93 (0.6-1.2) mg/dl Glucose 91 (70-99(Fasting)) mg/dl Calcium 9.1 (8.6-10.3) mg/dl Intake and Output 07/19/24 07/20/24 07/20/24 22:59 06:59 14:59 Intake Total 300 / 1131.75 220 / 1131.75 Balance 300 / 1131.75 220 / 1131.75 Intake: Oral 300 / 570 220 / 570 Other: # Unmeasured Voids 1 1 1 Weight 83 kg Weight Measurement Method Built in [facility] Diagnostic Findings EKG performed post cath/ PCI on 07/19/24: SR at 68 bpm, first degree AVB, nonspecifict T wave flattening in lateral leads, stable findings. (3) Hyperlipidemia Hyperlipidemia type: mixed hyperlipidemia Qualified Code(s): E78.2 - Mixed hyperlipidemia
--- NOTE | 2024-07-20 15:24 | Discharge Summary ---
Date of Service July 20, 2024 Admission HPI Per Admitting Provider Patient is 84-year-old female with PMH HTN, HLD, hypothyroidism, asthma, depression, anxiety presented to ER with c/o CP today. Describes tightness, squeezing sensation to upper chest and neck and left jaw aching that occurred when she was cleaning today. Symptoms persisted couple of hours and were present when arriving at ER. In ER given aspirin 324mg and 1 SL nitro and patient reports relief. She denies any SOB, diaphoresis, dizziness, N/V, or palpitations with this episode. Denies any similar symptoms in the past. Patient reports chronic dizziness/lightheadedness with walking "too fast" but states didn't have dizziness today. Denies fever/chills, diaphoresis, N/V/D/C, JOLLY, syncope, vision changes, CP, SOB, orthopnea, cough, sore throat, choking, rhinorrhea, abdominal pain, paresthesias, weakness, extremity weakness, increased extremity edema, rashes, urinary symptoms. per outpatient records: 10/14/2022 stress echo: No evidence of inducible ischemia, EF: 60-64%, mild AR, mild TR 02/09/24: EF: 65%, no LV wall motion abnormality, grade 1 diastolic dysfunction, mild AR Admission Exam Per Admitting Provider General: no distress, WDWN Head: normocephalic, atraumatic Eyes: conjunctiva non-injected, anicteric ENT: normal inspection external ears, nose, mucous membranes moist Neck: supple, trachea midline Lungs: clear, no respiratory distress, no wheezing/rhonchi/rales CV: RRR, no JVD, no pretibial edema Abd: normal BS, soft, non-tender Ext: no cyanosis, no calf tenderness Neuro: A&O x 3, no focal deficits noted, normal affect Skin: warm, dry Principal Diagnosis NSTEMI Discharge Exam General: no distress, WDWN Head: normocephalic, atraumatic Eyes: conjunctiva non-injected, anicteric ENT: normal inspection external ears, nose, mucous membranes moist Neck: supple, trachea midline Lungs: clear, no respiratory distress, no wheezing/rhonchi/rales CV: RRR, no JVD, no pretibial edema Abd: normal BS, soft, non-tender Ext: no cyanosis, no calf tenderness Neuro: A&O x 3, no focal deficits noted, normal affect Skin: warm, dry Discharge Data Allergies Allergy/AdvReac Type Severity Reaction Status Date / Time Sulfa (Sulfonamide Allergy Severe HIVES, Verified 08/21/23 09:52 Antibiotics) SWELLING atorvastatin Allergy Intermediate REDNESS,ITCHY Verified 08/21/23 09:52 RASH azithromycin Allergy Intermediate Redness of Verified 08/21/23 09:52 Skin, heart racing bee venom protein (honey bee) Allergy Intermediate WHEEZING,ITCHY Verified 08/21/23 09:52 EYES, REDNESS doxycycline Allergy Intermediate REDMITCHY Verified 08/21/23 09:52 HIVES, THROAT SWELLS niacin Allergy Intermediate UNKNOWN TO Verified 08/21/23 09:52 PT-REDNESS? propofol Allergy Intermediate LOW Verified 08/21/23 09:52 BP,"WENT OUT"-BLACKED OUT terfenadine Allergy Intermediate HEART Verified 08/21/23 09:52 PALPITATIONS lisinopril Allergy Unknown angioedema Verified 08/21/23 09:52 possibly related to lisinopril ranitidine AdvReac Intermediate headache Verified 08/21/23 09:52 sulfamethoxazole AdvReac Intermediate GI UPSET Verified 08/21/23 09:52 [From Bactrim] trimethoprim [From Bactrim] AdvReac Intermediate GI UPSET Verified 08/21/23 09:52 red beets Allergy Severe Anaphylaxis Uncoded 08/13/23 11:40 Consultations 07/16/24 16:52 ED Decision to Admit Stat 07/16/24 20:54 Consult Cardiology Routine 07/19/24 11:03 Consult Cardiac Rehabilitation Routine Procedures Performed Operation Date: 07/19/24 09:30 Actual Procedures p Cath, Coronaries ONLY (no LV) - Wilber Green MD, PhD p Drug Eluting Stent SGl Vessel - Wilber Green MD, PhD s Ultrasound Vascular Access - Wilber Green MD, PhD p Angio Extremity Unilateral - Wilber Green MD, PhD s Cineradiography w/Routine Exam - Wilber Green MD, PhD Ordered Studies 07/19/24 08:42 CL Cath Imgs for PACS use only Routine Hospital Course (1) NSTEMI (non-ST elevated myocardial infarction): (2) Chest pain: (3) Lower back pain: (4) HTN (hypertension): (5) Hyperlipidemia: (6) Hypothyroidism: (7) Asthma: (8) Depression with anxiety: Patient is 84-year-old female with PMH HTN, HLD, hypothyroidism, asthma, depression, anxiety presented to ER with c/o upper chest and neck tightness and left jaw discomfort today while cleaning. Symptoms persisted couple hours and in ER given aspirin 324mg and 1 SL nitro and patient reports relief. High sensitivity troponin 11 on admission, increased to 1776 overnight and downtrended EKG sinus rhythm, nonspecific T wave changes. Echocardiogram shows EF of 60 to 65%; moderate concentric LVH. Patient underwent left heart cath on 07/19/2024; she had 2 stent placed on right coronary artery. Patient was started on aspirin and Brilinta. Patient was discharged home with her daughter Please note the above document was generated using voice recognition software. It may contain grammatical, syntax or spelling errors. Any formal questions or concerns about the content, text or information contained within the body of this dictation should be directly addressed to the provider for clarification Total Time Total Time Spent Total Time Spent (In Minutes): 45 Total Time Includes: Examination of the Patient, Discharge Planning, Medication Reconciliation, Communication With Other Providers and Other Discharge Plan Discharge Items Patient Disposition: Home - Self-Care Reason For Visit: CP Discharge Diagnosis: NSTEMI Activity: Resume your previous activity Non-emergency contact: Primary Care Provider Call non-emergency contact if: you have any medication questions and your symptoms worsen Follow-up/Referrals: Alycia Terry, [Primary Care Provider] - Diet: Regular Addtl Attending Provider Instructions: You were admitted to the hospital due to a heart attack. You underwent cardiac catheterization with placement of stents in your heart vessels. You are prescribed following medications: Take aspirin 81 mg once a day Take Brilinta 90 mg twice a day Please follow-up with your primary care doctor and cardiology. Pending Studies at Discharge: No Stand-Alone Forms: [employer], Smoking Cessation Medications and DC Order Prescriptions: New aspirin 81 mg Tablet,Delayed Release (Dr/Ec) 81 mg PO QAM Qty: 60 0RF rosuvastatin 20 mg Tablet 20 mg PO DAILY Qty: 60 0RF Brilinta 90 mg Tablet 90 mg PO BID Qty: 120 0RF Continued albuterol sulfate 90 mcg/actuation HFA aerosol inhaler 2 puffs inhalation Q4H PRN (Reason: cough,sob,wheezing) Qty: 1 cyanocobalamin (vitamin B-12) 1,000 mcg tablet 1,000 mcg PO QAM Qty: 90 levothyroxine 75 mcg tablet 75 mcg PO QAM cholecalciferol (vitamin D3) [Vitamin D3] 25 mcg (1,000 unit) Tablet,Chewable 25 mcg PO QAM Qvar RediHaler 80 mcg/actuation HFA aerosol breath activated 2 inh INHALATION BID amlodipine 2.5 mg Tablet 2.5 mg PO QAM diphenhydramine HCl [Benadryl] 25 mg Capsule 25 mg PO TID PRN (Reason: Allergic Reaction) omeprazole 20 mg Tablet,Delayed Release (Dr/Ec) 20 mg PO QAM epinephrine 0.1 mg/0.1 mL Auto-Injector 0.1 mg IM UD PRN (Reason: Anaphylaxis) sertraline 100 mg tablet 100 mg PO DAILY Discontinued rosuvastatin 10 mg tablet 10 mg PO DAILY Discharge Orders: Discharge Order (Routine); Ordered 07/20/24 Ordered By: Bob Tejada/Other Patient Handouts: Ticagrelor Oral Tablet, Aspirin Oral Tablet Admission Data Admit Date/Time: 07/17/24 16:16 Attending Provider: Naren Cisneros Admit Provider: Bob Barba Primary Care Provider: Alycia Terry Other Providers: Naren Cisneros; Sunday Ortiz Other Interventions: Discharge Summary Assessment (RN) Last Done: 07/20/24 14:44
== END 2024-07-20 15:25 | disposition home or self-care (01) | DRG 322 ==
LOC: ED 15:32 → 2N 15:32 → SUATTDRO 17:54 → 2N 20:22 → 2S 23:21
PROC: CLB.CCO (2024-07-19 09:30)
PROC: CLB.AEU (2024-07-19 09:30)

== ENCOUNTER 2024-07-26 15:49 | Observation (INO) ==
[2024-07-26 16:30] LABS: Basophils # (auto) 0.05 K/uL (0.00-0.20); Basophils % (auto) 0.6 %; Eosinophils # (auto) 0.19 K/uL (0.00-0.50); Eosinophils % (auto) 2.2 %; Hematocrit (blood only) 39.4 % (37.0-47.0); Hemoglobin 13.4 g/dl (12.0-16.0); Immature Granulocytes # (auto) 0.13 K/uL (0.01-0.20); Immature Granulocytes % (auto) 1.5 %; Lymphocytes # (auto) 2.57 K/uL (1.20-3.40); Lymphocytes % (auto) 29.7 %; Mean Corpuscular Hemoglobin 31.4 pg (25.0-34.0); Mean Corpuscular Volume 92.3 fL (80.0-100.0); Mean Platelet Volume 9.9 fL (9.4-12.4); Monocytes # (auto) 0.89 K/uL (0.11-0.59); Monocytes % (auto) 10.3 %; Neutrophils # (auto) 4.82 K/uL (1.40-6.50); Neutrophils % (auto) 55.7 %; Platelet Count 237 K/uL (130-400); RDW Coefficient of Variation 12.4 % (11.5-14.5); RDW Standard Deviation 41.2 fL (36.4-46.3); Red Blood Count 4.27 M/uL (4.20-5.40); White Blood Count 8.65 K/ul (4.8-10.8)
--- NOTE | 2024-07-26 16:30 | Emergency Department Note ---
Impression & Plan Chest pain, Non-ST elevation NV (NSTEMI) ED Provider Note HISTORY OF PRESENT ILLNESS: Patient is an 84-year-old female presenting with chest pain. Patient reports that she has been having substernal chest pain, describes as a "heaviness" sensation, intermittently for the last 48 hours. She states that she gets very diaphoretic and short of breath when the chest heaviness comes on. States that it seems to occur at random and she does not have any triggering events that caused the chest heaviness. She states that the pain then goes into her back and down her left arm. She had another episode of diaphoresis and chest heaviness with pain down her left arm just prior to calling EMS. She had 2 stents placed the last week and is on aspirin and Brilinta. She denies any missed doses of these. She states that the chest pain feels similar to her anginal equivalent. She took an 81 mg aspirin prior to EMS arriving, and they gave her an additional 243 mg PO aspirin. On arrival to the ER, the patient is still complaining of chest heaviness. ROS: as above PHYSICAL EXAM: Constitutional: Patient appears in no acute distress. HENT: Head: Normocephalic and atraumatic. Eyes: EOMI, PERRL Mouth/Throat: Mucous membranes moist. Neck: Trachea midline. Neck supple. Cardiovascular: RRR, No murmurs, rubs or gallops. Intact distal pulses. Pulmonary/Chest: No respiratory distress. Breath sounds clear and equal bilaterally. No wheezes or rales. Abdominal: Abdomen soft, no tenderness, rebound or guarding. Musculoskeletal: No edema, tenderness or deformity noted. Skin: Warm and dry. No rash, erythema, pallor or cyanosis Psychiatric: Appropriate mood and affect for situation. Neurological: Alert and keenly responsive. CN II-XII grossly intact, moving all extremities equally and fully. MDM: - Vitals signs stable - History obtained via patient. History as above. - Chronic conditions affecting care: GERD; hypothyroidism; HTN; CAD (s/p PCI); HLD - Differential diagnoses include, but are not limited to: Acute coronary syndrome; pulmonary embolism; dissection; tension pneumothorax; esophageal rupture; pneumonia - Order placed for continuous cardiac monitoring. At this time, monitor showed rate of 63 bpm with normal sinus rhythm, per my interpretation. - External medical records reviewed. Discharge summary dated 07/20/2024 was reviewed. Patient was admitted that time for an NSTEMI. She had a cardiac catheterization performed on 07/19/2024 and had 2 stents placed in her right coronary artery. She was discharged on aspirin and Brilinta. - EKG interpreted by myself showed normal sinus rhythm. Rate 61 bpm. QTc 438. No acute ischemic changes. - Laboratory workup interpreted by myself showed normal WBC; normal PT/INR; stable electrolytes; normal lipase; elevated troponin (42.2) - Repeat troponin elevated, but stable, at 43.3 - CXR negative for pneumonia, per my interpretation - CTA chest negative for acute pathology - COVID/flu/RSV negative - Discussion was had with residential case manager about patient's case and need for admission - Hospitalist, Dr. Cesar, consulted for admission - [facility] ASSESSMENT AND PLAN: Diagnosis: chest pain; NSTEMI Plan: admit Past Med/Surg History Problem List (Updated 07/26/24 @ 19:50 by Gloria Villa MD) Non-ST elevation NV (NSTEMI) (Acute) Chest pain (Acute) Lower back pain NSTEMI (non-ST elevated myocardial infarction) Chest pain (Acute) Encounter for diagnostic colonoscopy due to change in bowel habits Encounter for pre-operative examination History of eye surgery Hyperlipidemia (Chronic) Osteoarthritis, multiple sites (Chronic) Generalized anxiety disorder (Chronic) Asthma (Chronic) Acute sinus infection (Acute) Left-sided weakness Hematochezia Nausea vomiting and diarrhea (Acute) Generalized weakness Depression with anxiety HTN (hypertension) History of oral surgery Hypothyroidism (Chronic) IBS (irritable bowel syndrome) (Chronic) Anemia (Chronic) GERD (gastroesophageal reflux disease) (Chronic) Lumbar stenosis with neurogenic claudication Medical History Nonrheumatic tricuspid (valve) insufficiency Nonrheumatic aortic (valve) insufficiency Umbilical hernia Ambulatory dysfunction uses walker Asthma well controlled, no asthma attacks in the last 2 years per pt History of anesthesia reaction cardiac arrest after her multiple colonoscopies at [facility] because she was given too much medication and states she is "sensitive to medications". Did not have complications at last colonoscopy per pt. States "no anesthesia allergy, just sensitive to it". Surgical History History of D&C History of section History of laryngoscopy has "polyps" present History of bronchoscopy History of discectomy Dr Reese, details unknown by pt History of cataract surgery bilateral History of colonoscopy Family History Unknown Gastric cancer Schizophrenia Sister Crohn's disease Brother Schizophrenia Lung cancer Son Myocardial infarction Daughter Breast cancer Mother Myocardial infarction Cancer Father Lung cancer Cancer Grandmother (Maternal) Heart trouble Aunt Convulsion Social History Smoking Status: Former smoker Tobacco Type: Cigarettes Second Hand Exposure: No; Do You Dip or Chew Tobacco: No; Hx Alcohol Use: No Hx Substance Use: No Preferred Language: Albanian Communication Ability: Effective Technical Photographer Required: No Beliefs That Will Affect Care: None Current Living Situation: Alone and Other Current Living Situation Comment: [place] [address] community Feels Safe at Home: Yes Assistive Devices: None Allergies Allergies Allergy/AdvReac Type Severity Reaction Status Date / Time Sulfa (Sulfonamide Allergy Severe HIVES, Verified 08/21/23 09:52 Antibiotics) SWELLING atorvastatin Allergy Intermediate REDNESS,ITCHY Verified 08/21/23 09:52 RASH azithromycin Allergy Intermediate Redness of Verified 08/21/23 09:52 Skin, heart racing bee venom protein (honey bee) Allergy Intermediate WHEEZING,ITCHY Verified 08/21/23 09:52 EYES, REDNESS doxycycline Allergy Intermediate REDMITCHY Verified 08/21/23 09:52 HIVES, THROAT SWELLS niacin Allergy Intermediate UNKNOWN TO Verified 08/21/23 09:52 PT-REDNESS? propofol Allergy Intermediate LOW Verified 08/21/23 09:52 BP,"WENT OUT"-BLACKED OUT terfenadine Allergy Intermediate HEART Verified 08/21/23 09:52 PALPITATIONS lisinopril Allergy Unknown angioedema Verified 08/21/23 09:52 possibly related to lisinopril ranitidine AdvReac Intermediate headache Verified 08/21/23 09:52 sulfamethoxazole AdvReac Intermediate GI UPSET Verified 08/21/23 09:52 [From Bactrim] trimethoprim [From Bactrim] AdvReac Intermediate GI UPSET Verified 08/21/23 09:52 red beets Allergy Severe Anaphylaxis Uncoded 08/13/23 11:40 Home Meds Home Medications Medication Instructions Recorded Confirmed albuterol sulfate 90 mcg/actuation 2 puffs inhalation Q4H PRN 06/08/19 07/16/24 aerosol inhaler cough,sob,wheezing #1 g cyanocobalamin (vitamin B-12) 1,000 mcg PO QAM #90 tabs 06/08/19 07/16/24 1,000 mcg tablet beclomethasone dipropionate 80 2 inh inhalation BID 09/02/20 07/16/24 mcg/actuation HFA breath activated aerosol (Qvar RediHaler) cholecalciferol (vitamin D3) 25 25 mcg PO QAM 09/02/20 07/16/24 mcg (1,000 unit) chewable tablet (Vitamin D3) levothyroxine 75 mcg tablet 75 mcg PO QAM 09/02/20 07/16/24 amlodipine 2.5 mg tablet 2.5 mg PO QAM 08/13/23 07/16/24 diphenhydramine HCl 25 mg capsule 25 mg PO TID PRN Allergic Reaction 08/13/23 07/16/24 (Benadryl) epinephrine 0.1 mg/0.1 mL 0.1 mg IM UD PRN Anaphylaxis 08/13/23 07/16/24 injection, auto-injector omeprazole 20 mg tablet,delayed 20 mg PO QAM 08/13/23 07/16/24 release sertraline 100 mg tablet 100 mg PO DAILY 07/16/24 07/16/24 Previous Rx's Medication Instructions Recorded aspirin 81 mg tablet,delayed 81 mg PO QAM #60 tabs 07/20/24 release rosuvastatin 20 mg tablet 20 mg PO DAILY #60 tabs 07/20/24 ticagrelor 90 mg tablet (Brilinta) 90 mg PO BID #120 tabs 07/20/24 Results & Data (ED) Vital Signs Vital Signs - 24 hr 07/26/24 16:03 07/26/24 16:03 07/26/24 16:03 Temperature 36.7 C Temperature Source Oral Pulse Rate 61 60 Pulse Rate [Apical] Respiratory Rate 19 17 Blood Pressure 135/64 Blood Pressure [Left Arm] Blood Pressure Mean 87 Blood Pressure Mean [Left Arm] Pulse Oximetry 98 98 98 Oxygen Delivery Method Room Air Room Air Room Air Sepsis Recent Fever Within 48 Hours No Sepsis New/Unexplained Change in Mental Status N/A Sepsis Action Taken by Nursing No Action Required 07/26/24 16:03 07/26/24 16:15 07/26/24 18:55 Temperature 36.7 C Temperature Source Oral Pulse Rate 62 Pulse Rate [Apical] 60 62 Respiratory Rate 20 16 Blood Pressure Blood Pressure [Left Arm] 135/64 136/94 Blood Pressure Mean Blood Pressure Mean [Left Arm] 87 108 Pulse Oximetry 98 98 Oxygen Delivery Method Room Air Room Air Sepsis Recent Fever Within 48 Hours Sepsis New/Unexplained Change in Mental Status Sepsis Action Taken by Nursing Laboratory Data 07/26/24 16:03 07/26/24 16:03 Lab Results 07/26/24 07/26/24 07/26/24 Range/Units 16:03 17:51 18:46 WBC 8.65 (4.8-10.8) K/ul RBC 4.27 (4.20-5.40) M/uL Hgb 13.4 (12.0-16.0) g/dl Hct 39.4 (37.0-47.0) % MCV 92.3 (80.0-100.0) fL MCH 31.4 (25.0-34.0) pg MCHC 34.0 (32.0-36.0) g/dL RDW Std Deviation 41.2 (36.4-46.3) fL RDW Coeff of Saroj 12.4 (11.5-14.5) % Plt Count 237 (130-400) K/uL MPV 9.9 (9.4-12.4) fL Immature Gran % (Auto) 1.5 % Neut % (Auto) 55.7 % Lymph % (Auto) 29.7 % [place] % (Auto) 10.3 % Eos % (Auto) 2.2 % Baso % (Auto) 0.6 % Neut # (Auto) 4.82 (1.40-6.50) K/uL Lymph # (Auto) 2.57 (1.20-3.40) K/uL [place] # (Auto) 0.89 H (0.11-0.59) K/uL Eos # (Auto) 0.19 (0.00-0.50) K/uL Baso # (Auto) 0.05 (0.00-0.20) K/uL Immature Gran # (Auto) 0.13 (0.01-0.20) K/uL PT 10.9 (9.0-12.0) Seconds INR 1.0 (0.9-1.1) Sodium 138 (136-145) mmol/L Potassium 3.8 (3.5-5.1) mmol/L Chloride 107 (98-107) mmol/L Carbon Dioxide 25 (21-32) mmol/L Anion Gap 6 (3-11) BUN 15 (6-23) mg/dl Creatinine 0.77 (0.6-1.2) mg/dl Est Cr Clr Drug Dosing 54.8 ml/min Est GFR ( Amer) 82.2 ml/min Est GFR (Non-Af Amer) 70.9 ml/min BUN/Creatinine Ratio 19.5 (10-20) Glucose 71 (70-99(Fasting)) mg/dl Calcium 9.2 (8.6-10.3) mg/dl Magnesium 2.0 (1.7-2.4) mg/dl Total Bilirubin 0.5 (0.2-1.0) mg/dl AST 17 (13-39) U/L ALT 14 (7-52) U/L Alkaline Phosphatase 77 (34-104) U/L Troponin I High Sens 42.2 H 43.3 H (0-14) pg/ml Total Protein 6.6 (6.0-8.3) gm/dl Albumin 4.1 (3.4-5.0) gm/dl Globulin 2.5 (2.5-4.0) gm/dl Albumin/Globulin Ratio 1.6 (0.9-2) Lipase 51 (11-82) U/L SARS-CoV-2 (PCR) NEGATIVE (Negative) Influenza Type A (PCR) Negative (Neg) Influenza Type B (PCR) Negative (Neg) RSV (RT-PCR) Negative (Neg) Administered Medications Discontinued Medications Fentanyl Citrate (Fentanyl Citrate Pf 100 Mcg/2 Ml Vial) 50 mcg IV NOW STA Stop: 07/26/24 16:27 Last Admin: 07/26/24 16:36 Dose: Not Given Documented By: AVM Ioversol (Optiray 320 125ml) 119 ml IV ONCE ONE Stop: 07/26/24 17:34 Last Admin: 07/26/24 17:34 Dose: 119 ml Documented By: PLW Imaging Data Radiologist's Impression: Chest X-Ray 07/26/24 15:57 SINGLE VIEW CHEST CLINICAL HISTORY: Atypical chest pain FINDINGS: An AP, portable, upright chest radiograph is compared to study dated 07/16/2024. Correlation is made with chest CT dated 06/23/2019. The heart is mildly enlarged. The pulmonary vasculature is noncongested. Emphysema and chronic interstitial thickening is similar to previous. Scarring/atelectasis is noted at the lung bases. No airspace consolidation or large pleural effusion is identified. No pneumothorax is seen. The skeletal structures are osteopenic. The bony thorax is grossly intact. IMPRESSION: Cardiomegaly and emphysema with no active disease in the chest. ACT 112: Negative or not required by law. Electronically signed by: Yobany Cottrell M.D. 07/26/2024 5:05 PM Chest CTA 07/26/24 16:26 CT ANGIOGRAM OF THE CHEST COMBO CLINICAL HISTORY: Atypical chest pain. COMPARISON STUDY: Chest x-ray dated 07/26/2024. Chest CT dated 06/23/2019. TECHNIQUE: Before and following the IV administration of 119 cc of Optiray 320, CT angiogram of the chest was performed from the thoracic inlet to the upper abdomen utilizing the dissection protocol. Images are reviewed in the axial, sagittal, and coronal planes. 3-D MIPS images are created and assessed. IV contrast was administered without complication. A dose lowering technique was utilized adhering to the principles of ALARA. CT DOSE: 1623.48 mGy.cm FINDINGS: Thyroid: Imaged portions of the thyroid gland are normal in size and attenuation. Thoracic aorta: No intramural hematoma is seen on the unenhanced series. There is atherosclerotic calcification of the thoracic aorta, which is normal in caliber and demonstrates bovine variant arch anatomy. No dissection is seen. The arch vessels are widely patent. Pulmonary vasculature: The pulmonary trunk is normal in caliber. There are no filling defects identified in the main, lobar, or segmental pulmonary vessels to indicate pulmonary embolus. Heart: The heart is normal in size noting a small pericardial effusion. There is coronary artery atherosclerosis. Lungs and pleural spaces: Emphysematous change is similar to previous. No airspace consolidation or pleural effusion is identified. Scarring/atelectasis is seen at the lung bases. Scattered calcified granulomas are observed. The trachea and central airways are clear. A 6 mm focus of pleural thickening along the minor fissure on image #113 is unchanged, as are a 3 mm left upper lobe nodule on image #76, a 4 mm left upper lobe nodule on image #104, and a 5 mm left lower lobe nodule image #158. Pleural thickening on left major fissure on image #142 is also unchanged. A 3 mm right lower lobe pulmonary nodule on image #139 was not seen in 2019. Mediastinum: There is no mediastinal lymphadenopathy. Precious: Clear. Axillae: There is no axillary lymphadenopathy. Upper abdomen: There is a small hiatal hernia. A 3 cm cyst arises from the left kidney. Additional subcentimeter cortical hypodensities are seen in the right kidney these also likely represent cysts but are too small for definitive characterization. There is a 10 mm IPMN seen in the pancreatic tail. Skeletal structures: The skeletal structures are osteopenic. Degenerative change is noted in the shoulders and spine. No lytic or blastic bony lesions are seen. IMPRESSION: 1. Unremarkable CT angiogram of the thoracic aorta. 2. There is no evidence of pulmonary embolus in the main, lobar, or segmental pulmonary arteries. 3. Emphysema. 4. There is no airspace consolidation or pleural effusion. 5. A 3 mm right lower lobe pulmonary nodule was not clearly seen in 2019 and may be inflammatory. A 3-4 month follow-up chest CT is recommended for reassessment. 6. Several additional subcentimeter pulmonary nodules are unchanged. 7. Additional findings as above. ACT 112: Negative or not required by law. Electronically signed by: Yobany Cottrell M.D. 07/26/2024 6:43 PM Discharge Plan Visit Data Chief Complaint: Chest Pain Stated Complaint: CHEST PAIN ED Provider: Gloria Villa Discharge Problem: Chest pain, Non-ST elevation NV (NSTEMI) Forms Stand Alone Forms: My [employer] Prescriptions Prescriptions: No Action albuterol sulfate 90 mcg/actuation HFA aerosol inhaler 2 puffs inhalation Q4H PRN (Reason: cough,sob,wheezing) Qty: 1 cyanocobalamin (vitamin B-12) 1,000 mcg tablet 1,000 mcg PO QAM Qty: 90 levothyroxine 75 mcg tablet 75 mcg PO QAM cholecalciferol (vitamin D3) [Vitamin D3] 25 mcg (1,000 unit) Tablet,Chewable 25 mcg PO QAM Qvar RediHaler 80 mcg/actuation HFA aerosol breath activated 2 inh INHALATION BID amlodipine 2.5 mg Tablet 2.5 mg PO QAM diphenhydramine HCl [Benadryl] 25 mg Capsule 25 mg PO TID PRN (Reason: Allergic Reaction) omeprazole 20 mg Tablet,Delayed Release (Dr/Ec) 20 mg PO QAM epinephrine 0.1 mg/0.1 mL Auto-Injector 0.1 mg IM UD PRN (Reason: Anaphylaxis) sertraline 100 mg tablet 100 mg PO DAILY aspirin 81 mg Tablet,Delayed Release (Dr/Ec) 81 mg PO QAM Qty: 60 0RF rosuvastatin 20 mg Tablet 20 mg PO DAILY Qty: 60 0RF Brilinta 90 mg Tablet 90 mg PO BID Qty: 120 0RF Referrals Referrals: Alycia Terry DO [Primary Care Provider] -
[2024-07-26] MEDS: fentaNYL citrate PF 100 MCG/2 ML VIAL IV STA (16:36)
[2024-07-26 16:48] LABS: Albumin Globulin Ratio 1.6 (0.9-2); Albumin Level 4.1 gm/dl (3.4-5.0); BUN Creatinine Ratio 19.5 (10-20); Bilirubin,Total 0.5 mg/dl (0.2-1.0); Calcium 9.2 mg/dl (8.6-10.3); Creatinine Clr Calc Pharmacy 54.8 ml/min; Est GFR (African American) 82.2 ml/min; Est GFR (Non-African American) 70.9 ml/min; Globulin 2.5 gm/dl (2.5-4.0); Potassium 3.8 mmol/L (3.5-5.1); Total Protein 6.6 gm/dl (6.0-8.3)
[2024-07-26 16:53] LABS: Troponin I High Sensitivity 42.2 pg/ml (0-14)
[2024-07-26 16:56] LABS: Prothrombin Time 10.9 Seconds (9.0-12.0)
--- NOTE | 2024-07-26 17:07 | XRay Report ---
SINGLE VIEW CHEST CLINICAL HISTORY: Atypical chest pain FINDINGS: An AP, portable, upright chest radiograph is compared to study dated 07/16/2024. Correlation is made with chest CT dated 06/23/2019. The heart is mildly enlarged. The pulmonary vasculature is no ncongested. Emphysema and chronic interstitial thickening is similar to previous. Scarring/atelectasi s is noted at the lung bases. No airspace consolidation or large pleural effusion is identified. No p neumothorax is seen. The skeletal structures are osteopenic. The bony thorax is grossly intact. IMPRESSION: Cardiomegaly and emphysema with no active disease in the chest. ACT 112: Negative or not required by law. Electronically signed by: Yobany Cottrell M.D. 07/26/2024 5:05 PM
[2024-07-26] MEDS: OPTIRAY 320 125ml IV ONE (17:34)
[2024-07-26 18:42] LABS: Influenza A virus by PCR Negative (Neg); Influenza B virus by PCR Negative (Neg); RSV by PCR Negative (Neg); SARS CoV2 RNA(COVID-19) Ceph NEGATIVE (Negative)
--- NOTE | 2024-07-26 18:45 | CT Scan Report ---
CT ANGIOGRAM OF THE CHEST COMBO CLINICAL HISTORY: Atypical chest pain. COMPARISON STUDY: Chest x-ray dated 07/26/2024. Chest CT dated 06/23/2019. TECHNIQUE: Before and following the IV administration of 119 cc of Optiray 320, CT angiogram of the c hest was performed from the thoracic inlet to the upper abdomen utilizing the dissection protocol. Im ages are reviewed in the axial, sagittal, and coronal planes. 3-D MIPS images are created and assesse d. IV contrast was administered without complication. A dose lowering technique was utilized adherin g to the principles of ALARA. CT DOSE: 1623.48 mGy.cm FINDINGS: Thyroid: Imaged portions of the thyroid gland are normal in size and attenuation. Thoracic aorta: No intramural hematoma is seen on the unenhanced series. There is atherosclerotic miguel cification of the thoracic aorta, which is normal in caliber and demonstrates bovine variant arch adelaide marino. No dissection is seen. The arch vessels are widely patent. Pulmonary vasculature: The pulmonary trunk is normal in caliber. There are no filling defects identif ied in the main, lobar, or segmental pulmonary vessels to indicate pulmonary embolus. Heart: The heart is normal in size noting a small pericardial effusion. There is coronary artery athe rosclerosis. Lungs and pleural spaces: Emphysematous change is similar to previous. No airspace consolidation or p leural effusion is identified. Scarring/atelectasis is seen at the lung bases. Scattered calcified gr anulomas are observed. The trachea and central airways are clear. A 6 mm focus of pleural thickening along the minor fissure on image #113 is unchanged, as are a 3 mm left upper lobe nodule on image #76 , a 4 mm left upper lobe nodule on image #104, and a 5 mm left lower lobe nodule image #158. Pleural thickening on left major fissure on image #142 is also unchanged. A 3 mm right lower lobe pulmonary n odule on image #139 was not seen in 2019. Mediastinum: There is no mediastinal lymphadenopathy. Precious: Clear. Axillae: There is no axillary lymphadenopathy. Upper abdomen: There is a small hiatal hernia. A 3 cm cyst arises from the left kidney. Additional murry bcentimeter cortical hypodensities are seen in the right kidney these also likely represent cysts but are too small for definitive characterization. There is a 10 mm IPMN seen in the pancreatic tail. Skeletal structures: The skeletal structures are osteopenic. Degenerative change is noted in the shou lders and spine. No lytic or blastic bony lesions are seen. IMPRESSION: 1. Unremarkable CT angiogram of the thoracic aorta. 2. There is no evidence of pulmonary embolus in the main, lobar, or segmental pulmonary arteries. 3. Emphysema. 4. There is no airspace consolidation or pleural effusion. 5. A 3 mm right lower lobe pulmonary nodule was not clearly seen in 2019 and may be inflammatory. A 3 -4 month follow-up chest CT is recommended for reassessment. 6. Several additional subcentimeter pulmonary nodules are unchanged. 7. Additional findings as above. ACT 112: Negative or not required by law. Electronically signed by: Yobany Cottrell M.D. 07/26/2024 6:43 PM
--- NOTE | 2024-07-26 20:49 | History & Physical Report ---
Date of Service July 26, 2024 Assessment & Plan (1) Chest pain: Plan: With minimal troponin elevation Possible NSTEMI Recent CAD status post stent hypertension, stable hyperlipidemia, on statin Rx bronchial asthma, stable hypothyroidism, euthyroid as of recent TSH Constipation symptoms Dementia, patient mentating well SPN past tobacco abuse OBS PCU Continue patient's antiplatelet Rx, statin Rx; nitro as needed pain Follow troponin TTE, initiate IV heparin if with significant subsequent troponin elevation Cardiology consult in a.m. re: chest pain, history of CAD N.p.o. in anticipation of workup Bowel regimen Outpatient follow-up CT chest 3 months for now for SPN DVT prophylaxis. Lovenox subcu Full code Text document was generated using [employer] voice recognition software. It may contain grammatical or spelling errors. Kindly contact undersigned for clarification of any documentation item in question. History of Present Illness Chief Complaint: Chest pain Primary Care Provider: Alycia Terry, History obtained from patient and records. Medical history significant for CAD status post stent, hypertension, hyperlipidemia, bronchial asthma, DENICE, GERD, hypothyroidism, mood disorder, dementia, past tobacco abuse. Recent confinement last week for NSTEMI. Subsequent RCA stent placement. Patient discharged on dual antiplatelet Rx and statin Rx. No beta-lakisha due to baseline bradycardia as per cardiology note. Patient would experience intermittent substernal chest heaviness with occasional radiation to the left arm shortly upon discharge home. Compliant with home medications. Transient frontal headache symptoms. Achy abdominal pain which patient attributes to constipation. Chest pain improved after fentanyl administration at the ER. Medical History as above Surgical History : D&C, laryngoscopy, cataract surgeries Family History : Breast cancer, schizophrenia, stomach cancer, heart disease Personal/Social history : Past tobacco abuse, no EtOH intake, retired caregiver Allergies Allergy/AdvReac Type Severity Reaction Status Date / Time beet Allergy Severe Anaphylaxis Verified 07/27/24 00:21 from "red beets" Sulfa (Sulfonamide Allergy Severe HIVES, Verified 07/26/24 20:58 Antibiotics) SWELLING atorvastatin Allergy Intermediate REDNESS,ITCHY Verified 07/26/24 20:58 RASH azithromycin Allergy Intermediate Redness of Verified 07/26/24 20:58 Skin, heart racing bee venom protein (honey bee) Allergy Intermediate WHEEZING,ITCHY Verified 07/26/24 20:58 EYES, REDNESS doxycycline Allergy Intermediate REDMITCHY Verified 07/26/24 20:58 HIVES, THROAT SWELLS niacin Allergy Intermediate UNKNOWN TO Verified 07/26/24 20:58 PT-REDNESS? propofol Allergy Intermediate LOW Verified 07/26/24 20:58 BP,"WENT OUT"-BLACKED OUT terfenadine Allergy Intermediate HEART Verified 07/26/24 20:58 PALPITATIONS lisinopril Allergy Unknown angioedema Verified 07/26/24 20:58 possibly related to lisinopril fentanyl Allergy Unresponsiv Unverified 07/26/24 20:59 e ranitidine AdvReac Intermediate headache Verified 07/26/24 20:58 sulfamethoxazole AdvReac Intermediate GI UPSET Verified 07/26/24 20:58 [From Bactrim] trimethoprim [From Bactrim] AdvReac Intermediate GI UPSET Verified 07/26/24 20:58 Home Medications Medication Instructions Recorded Confirmed Type albuterol sulfate 90 mcg/actuation 2 puffs inhalation Q4H PRN 06/08/19 07/26/24 History aerosol inhaler cough,sob,wheezing #1 g cyanocobalamin (vitamin B-12) 1,000 mcg PO QAM #90 tabs 06/08/19 07/26/24 History 1,000 mcg tablet beclomethasone dipropionate 80 2 inh inhalation BID 09/02/20 07/26/24 History mcg/actuation HFA breath activated aerosol (Qvar RediHaler) cholecalciferol (vitamin D3) 25 25 mcg PO QAM 09/02/20 07/26/24 History mcg (1,000 unit) chewable tablet (Vitamin D3) levothyroxine 75 mcg tablet 75 mcg PO QAM 09/02/20 07/26/24 History amlodipine 2.5 mg tablet 2.5 mg PO QAM 08/13/23 07/26/24 History diphenhydramine HCl 25 mg capsule 25 mg PO TID PRN Allergic Reaction 08/13/23 07/26/24 History (Benadryl) epinephrine 0.1 mg/0.1 mL 0.1 mg IM UD PRN Anaphylaxis 08/13/23 07/26/24 History injection, auto-injector omeprazole 20 mg tablet,delayed 20 mg PO QAM 08/13/23 07/26/24 History release sertraline 100 mg tablet 50 mg PO BID 07/16/24 07/26/24 History aspirin 81 mg tablet,delayed 81 mg PO QAM #60 tabs 07/20/24 07/26/24 Rx release ticagrelor 90 mg tablet (Brilinta) 90 mg PO BID #120 tabs 07/20/24 07/26/24 Rx rosuvastatin 20 mg tablet 20 mg PO QAM 07/26/24 07/26/24 History Past Med/Surg History Problem List (Updated 07/26/24 @ 19:50 by Gloria Villa MD) Non-ST elevation TX (NSTEMI) (Acute) Chest pain (Acute) Lower back pain NSTEMI (non-ST elevated myocardial infarction) Chest pain (Acute) Encounter for diagnostic colonoscopy due to change in bowel habits Encounter for pre-operative examination History of eye surgery Hyperlipidemia (Chronic) Osteoarthritis, multiple sites (Chronic) Generalized anxiety disorder (Chronic) Asthma (Chronic) Acute sinus infection (Acute) Left-sided weakness Hematochezia Nausea vomiting and diarrhea (Acute) Generalized weakness Depression with anxiety HTN (hypertension) History of oral surgery Hypothyroidism (Chronic) IBS (irritable bowel syndrome) (Chronic) Anemia (Chronic) GERD (gastroesophageal reflux disease) (Chronic) Lumbar stenosis with neurogenic claudication Medical History Nonrheumatic tricuspid (valve) insufficiency Nonrheumatic aortic (valve) insufficiency Umbilical hernia Ambulatory dysfunction uses walker Asthma well controlled, no asthma attacks in the last 2 years per pt History of anesthesia reaction cardiac arrest after her multiple colonoscopies at [facility] because she was given too much medication and states she is "sensitive to medications". Did not have complications at last colonoscopy per pt. States "no anesthesia allergy, just sensitive to it". Surgical History History of D&C History of section History of laryngoscopy has "polyps" present History of bronchoscopy History of discectomy Dr Reese, details unknown by pt History of cataract surgery bilateral History of colonoscopy Family History Unknown Gastric cancer Schizophrenia Sister Crohn's disease Brother Schizophrenia Lung cancer Son Myocardial infarction Daughter Breast cancer Mother Myocardial infarction Cancer Father Lung cancer Cancer Grandmother (Maternal) Heart trouble Aunt Convulsion Social History Smoking Status: Former smoker Tobacco Type: Cigarettes Second Hand Exposure: No; Do You Dip or Chew Tobacco: No; Tobacco Cessation Education Requested by Patient: No Hx Alcohol Use: No Hx Substance Use: No Preferred Language: Hungarian Communication Ability: Effective Change Control Analyst Required: No Beliefs That Will Affect Care: None Current Living Situation: Alone and Other Current Living Situation Comment: [facility]- Indep. living Other Information That Helps Us Care for You: Yes (Pt can't cook; eats frozen dinners, soup, & other microwave foods) Feels Safe at Home: Yes Safety Concerns: Feels Safe At This Time Assistive Devices: Denture - Upper, Glasses and Walker Review of Systems Review of Systems: As per HPI, all other systems reviewed and negative Physical Exam Physical Exam: GENERAL: Comfortable, obese, slightly anxious, pleasant, no respiratory distress SKIN: Normal color, warm HEENT: [place] palpebral conjunctivae, no ptosis, moist buccal mucosa NECK : Supple, no tenderness CHEST : CTA, no tenderness HEART : RRR, no obvious murmurs ABDOMEN: Some distention, central abdominal tenderness EXTREMITIES : No LE swelling/tenderness, no other conspicuous deformities noted NEUROLOGIC : Coherent, no facial asymmetry, no other gross focality Results & Data Results & Data Vital Signs (Past 12 Hours) Vital Signs Temp Pulse Pulse Resp BP BP Pulse Ox 07/26/24 20:03 62 07/26/24 18:55 62 16 136/94 98 07/26/24 16:15 62 07/26/24 16:03 36.7 C 60 20 135/64 98 07/26/24 16:03 98 07/26/24 16:03 60 17 98 07/26/24 16:03 36.7 C 61 19 135/64 98 O2 Del Method 07/26/24 20:03 07/26/24 18:55 Room Air 07/26/24 16:15 07/26/24 16:03 Room Air 07/26/24 16:03 Room Air 07/26/24 16:03 Room Air 07/26/24 16:03 Room Air Laboratory Results Laboratory Results WBC 8.65 K/ul (4.8-10.8) 07/26/24 16:03 RBC 4.27 M/uL (4.20-5.40) 07/26/24 16:03 Hgb 13.4 g/dl (12.0-16.0) 07/26/24 16:03 Hct 39.4 % (37.0-47.0) 07/26/24 16:03 MCV 92.3 fL (80.0-100.0) 07/26/24 16:03 MCH 31.4 pg (25.0-34.0) 07/26/24 16:03 MCHC 34.0 g/dL (32.0-36.0) 07/26/24 16:03 RDW Std Deviation 41.2 fL (36.4-46.3) 07/26/24 16:03 RDW Coeff of Saroj 12.4 % (11.5-14.5) 07/26/24 16:03 Plt Count 237 K/uL (130-400) 07/26/24 16:03 MPV 9.9 fL (9.4-12.4) 07/26/24 16:03 Immature Gran % (Auto) 1.5 % 07/26/24 16:03 Neut % (Auto) 55.7 % 07/26/24 16:03 Lymph % (Auto) 29.7 % 07/26/24 16:03 [place] % (Auto) 10.3 % 07/26/24 16:03 Eos % (Auto) 2.2 % 07/26/24 16:03 Baso % (Auto) 0.6 % 07/26/24 16:03 Neut # (Auto) 4.82 K/uL (1.40-6.50) 07/26/24 16:03 Lymph # (Auto) 2.57 K/uL (1.20-3.40) 07/26/24 16:03 [place] # (Auto) 0.89 K/uL (0.11-0.59) H 07/26/24 16:03 Eos # (Auto) 0.19 K/uL (0.00-0.50) 07/26/24 16:03 Baso # (Auto) 0.05 K/uL (0.00-0.20) 07/26/24 16:03 Immature Gran # (Auto) 0.13 K/uL (0.01-0.20) 07/26/24 16:03 PT 10.9 Seconds (9.0-12.0) 07/26/24 16:03 INR 1.0 (0.9-1.1) 07/26/24 16:03 Sodium 138 mmol/L (136-145) 07/26/24 16:03 Potassium 3.8 mmol/L (3.5-5.1) 07/26/24 16:03 Chloride 107 mmol/L (98-107) 07/26/24 16:03 Carbon Dioxide 25 mmol/L (21-32) 07/26/24 16:03 Anion Gap 6 (3-11) 07/26/24 16:03 BUN 15 mg/dl (6-23) 07/26/24 16:03 Creatinine 0.77 mg/dl (0.6-1.2) 07/26/24 16:03 Est Cr Clr Drug Dosing 54.8 ml/min 07/26/24 16:03 Est GFR ( Amer) 82.2 ml/min 07/26/24 16:03 Est GFR (Non-Af Amer) 70.9 ml/min 07/26/24 16:03 BUN/Creatinine Ratio 19.5 (10-20) 07/26/24 16:03 Glucose 71 mg/dl (70-99(Fasting)) 07/26/24 16:03 Calcium 9.2 mg/dl (8.6-10.3) 07/26/24 16:03 Magnesium 2.0 mg/dl (1.7-2.4) 07/26/24 16:03 Total Bilirubin 0.5 mg/dl (0.2-1.0) 07/26/24 16:03 AST 17 U/L (13-39) 07/26/24 16:03 ALT 14 U/L (7-52) 07/26/24 16:03 Alkaline Phosphatase 77 U/L (34-104) 07/26/24 16:03 Troponin I High Sens 43.3 pg/ml (0-14) H 07/26/24 18:46 Total Protein 6.6 gm/dl (6.0-8.3) 07/26/24 16:03 Albumin 4.1 gm/dl (3.4-5.0) 07/26/24 16:03 Globulin 2.5 gm/dl (2.5-4.0) 07/26/24 16:03 Albumin/Globulin Ratio 1.6 (0.9-2) 07/26/24 16:03 Lipase 51 U/L (11-82) 07/26/24 16:03 SARS-CoV-2 (PCR) NEGATIVE (Negative) 07/26/24 17:51 Influenza Type A (PCR) Negative (Neg) 07/26/24 17:51 Influenza Type B (PCR) Negative (Neg) 07/26/24 17:51 RSV (RT-PCR) Negative (Neg) 07/26/24 17:51 Impressions Chest X-Ray 07/26/24 15:57 SINGLE VIEW CHEST CLINICAL HISTORY: Atypical chest pain FINDINGS: An AP, portable, upright chest radiograph is compared to study dated 07/16/2024. Correlation is made with chest CT dated 06/23/2019. The heart is mildly enlarged. The pulmonary vasculature is noncongested. Emphysema and chronic interstitial thickening is similar to previous. Scarring/atelectasis is noted at the lung bases. No airspace consolidation or large pleural effusion is identified. No pneumothorax is seen. The skeletal structures are osteopenic. The bony thorax is grossly intact. IMPRESSION: Cardiomegaly and emphysema with no active disease in the chest. ACT 112: Negative or not required by law. Electronically signed by: Yobany Cottrell M.D. 07/26/2024 5:05 PM Chest CTA 07/26/24 16:26 CT ANGIOGRAM OF THE CHEST COMBO CLINICAL HISTORY: Atypical chest pain. COMPARISON STUDY: Chest x-ray dated 07/26/2024. Chest CT dated 06/23/2019. TECHNIQUE: Before and following the IV administration of 119 cc of Optiray 320, CT angiogram of the chest was performed from the thoracic inlet to the upper abdomen utilizing the dissection protocol. Images are reviewed in the axial, sagittal, and coronal planes. 3-D MIPS images are created and assessed. IV contrast was administered without complication. A dose lowering technique was utilized adhering to the principles of ALARA. CT DOSE: 1623.48 mGy.cm FINDINGS: Thyroid: Imaged portions of the thyroid gland are normal in size and attenuation. Thoracic aorta: No intramural hematoma is seen on the unenhanced series. There is atherosclerotic calcification of the thoracic aorta, which is normal in caliber and demonstrates bovine variant arch anatomy. No dissection is seen. The arch vessels are widely patent. Pulmonary vasculature: The pulmonary trunk is normal in caliber. There are no filling defects identified in the main, lobar, or segmental pulmonary vessels to indicate pulmonary embolus. Heart: The heart is normal in size noting a small pericardial effusion. There is coronary artery atherosclerosis. Lungs and pleural spaces: Emphysematous change is similar to previous. No airspace consolidation or pleural effusion is identified. Scarring/atelectasis is seen at the lung bases. Scattered calcified granulomas are observed. The trachea and central airways are clear. A 6 mm focus of pleural thickening along the minor fissure on image #113 is unchanged, as are a 3 mm left upper lobe nodule on image #76, a 4 mm left upper lobe nodule on image #104, and a 5 mm left lower lobe nodule image #158. Pleural thickening on left major fissure on image #142 is also unchanged. A 3 mm right lower lobe pulmonary nodule on image #139 was not seen in 2019. Mediastinum: There is no mediastinal lymphadenopathy. Precious: Clear. Axillae: There is no axillary lymphadenopathy. Upper abdomen: There is a small hiatal hernia. A 3 cm cyst arises from the left kidney. Additional subcentimeter cortical hypodensities are seen in the right kidney these also likely represent cysts but are too small for definitive characterization. There is a 10 mm IPMN seen in the pancreatic tail. Skeletal structures: The skeletal structures are osteopenic. Degenerative change is noted in the shoulders and spine. No lytic or blastic bony lesions are seen. IMPRESSION: 1. Unremarkable CT angiogram of the thoracic aorta. 2. There is no evidence of pulmonary embolus in the main, lobar, or segmental pulmonary arteries. 3. Emphysema. 4. There is no airspace consolidation or pleural effusion. 5. A 3 mm right lower lobe pulmonary nodule was not clearly seen in 2019 and may be inflammatory. A 3-4 month follow-up chest CT is recommended for reassessment. 6. Several additional subcentimeter pulmonary nodules are unchanged. 7. Additional findings as above. ACT 112: Negative or not required by law. Electronically signed by: Yobany Cottrell M.D. 07/26/2024 6:43 PM Diagnostic Findings EKG as per my interpretation :Rate 60, NSR, normal axis, 1 AVB, T wave flattening septal leads
[2024-07-26] MEDS ORDERED: NITROGLYCERIN SL 0.4 MG/TAB TAB SL PRN (20:51)
[2024-07-26] MEDS ORDERED: traMADol HCL 50 MG TABLET PO PRN (20:51)
[2024-07-26] MEDS ORDERED: ACETAMINOPHEN 325 MG TAB PO PRN (20:51)
[2024-07-26] MEDS ORDERED: PROMETHAZINE 6.25 MG/50.25 ML BAG IV PRN (20:51)
[2024-07-26] MEDS: SODIUM CHLORIDE 0.9% 1,000 ML IV ONE (20:54)
[2024-07-26] MEDS: POLYETHYLENE (MIRALAX) 17 GM PACK PO STA (22:07)
[2024-07-26] MEDS: DOCUSATE SODIUM/SENNA 50/8.6MG TAB PO STA (22:08)
--- NOTE | 2024-07-26 23:32 | CT Scan Report ---
Exam(s): CT HEAD Without Contrast EXAM: CT Head Without Intravenous Contrast CLINICAL HISTORY: Headache. TECHNIQUE: Axial computed tomography images of the head/brain without intravenous contrast. CTDI is 36 mGy and DLP is 1293 mGy-cm. Automated exposure control was utilized for the study. A dose lowering technique was utilized adhering to the principles of ALARA. COMPARISON: MRI brain 08/12/2016 FINDINGS: Brain: No intracranial hemorrhage, mass-effect or midline shift. No abnormal extra axial fluid. No evidence of acute infarct. Mild periventricular white matter hypodensities are most consistent with chronic microangiopathy. Ventricles: Unremarkable. No ventriculomegaly. Bones/joints: Unremarkable. No acute fracture. Soft tissues: Unremarkable. Sinuses: There is a 1.1 cm mucous retention cyst or polyp of the left sphenoid sinus. Mastoid air cells: Unremarkable as visualized. No mastoid effusion. IMPRESSION: 1. There is a 1.1 cm mucous retention cyst or polyp of the left sphenoid sinus. 2. No acute intracranial finding. Electronically signed by: Jane Terrell MD 07/26/24 23:31 PM
--- NOTE | 2024-07-26 23:35 | CT Scan Report ---
Exam(s): CT ABDOMEN + PELVIS Without Contrast EXAM: CT Abdomen and Pelvis Without Intravenous Contrast CLINICAL HISTORY: Abdominal Pain. TECHNIQUE: Axial computed tomography images of the abdomen and pelvis without intravenous contrast. CTDI is 36 mGy and DLP is 1293 mGy-cm. Automated exposure control was utilized for the study. A dose lowering technique was utilized adhering to the principles of ALARA. COMPARISON: CT abdomen and pelvis 02/11/2022 FINDINGS: Lung bases: Unremarkable. No mass. No consolidation. ABDOMEN: Liver: Unremarkable. Gallbladder and bile ducts: Unremarkable. No calcified stones. No ductal dilation. Pancreas: Unremarkable. No ductal dilation. Spleen: Unremarkable. No splenomegaly. Adrenals: Unremarkable. No mass. Kidneys and ureters: Simple appearing bilateral renal cysts are present, no follow up is needed. The kidneys are otherwise unremarkable. No hydronephrosis. Stomach and bowel: Diverticulosis. No obstruction. No mucosal thickening. PELVIS: Appendix: Normal appendix. Bladder: Bladder opacify the renal collecting system and bladder. No stones. Reproductive: Unremarkable as visualized. ABDOMEN and PELVIS: Intraperitoneal space: Unremarkable. No free air. No significant fluid collection. Bones/joints: There are degenerative changes of the spine. No acute fracture. No dislocation. Soft tissues: Mild nonspecific inflammatory stranding of the right groin. No abscess. Vasculature: Mild atherosclerosis. No abdominal aortic aneurysm. Lymph nodes: Unremarkable. No enlarged lymph nodes. IMPRESSION: 1. There is mild nonspecific inflammatory stranding of the right groin without abscess. This could be infectious or inflammatory 2. Diverticulosis. Electronically signed by: Jane Terrell MD 07/26/24 23:34 PM
[2024-07-26 23:44] LABS: Troponin I High Sensitivity 49.6 pg/ml (0-14)
[2024-07-27 00:55] LABS: Appearance Urine Clear (Clear); Bacteria Urine Automated None Seen (None Seen); Bilirubin Urine Negative (Negative); Blood Urine Negative (Negative); Cast Urine Automated 0-2 /lpf (0-2); Color Urine Yellow; Epithelial Cell Urine Auto 0-2 /hpf (0-2); Glucose Urine UA Negative (Negative); Ketones Urine Negative (Negative); Leukocyte Esterase Urine Trace (Negative); Nitrite Urine Negative (Negative); Protein Urine Negative (Negative); RBC Urine Automated 0-2 /hpf (0-2); Specific Gravity Urine > 1.045 (1.000-1.030); Urobilinogen Urine Negative (Negative); WBC Urine Automated 0-5 /hpf (0-5); pH Urine 5.5 (4.5-7.5)
[2024-07-27] MEDS: SERTRALINE HCL 50 MG TABLET PO SCH (01:01)
[2024-07-27] MEDS: TICAGRELOR 90 MG TAB PO SCH (01:01)
[2024-07-27 01:32] LABS: C Reactive Protein < 0.50 mg/dl (0-0.5)
[2024-07-27] MEDS: LEVOTHYROXINE SODIUM 75 MCG TABLET PO SCH (05:56)
--- OUTSIDE RECORDS SUMMARY | 2024-07-27 06:07 | External Medical Summary | Summary of Care ---
Author Name Unknown Organization [facility] Address [address] [place] [address] Phone [phone] Care Team Providers Care Rotary Kiln Operator Name Role Phone Alycia Terry DO Primary Care Provider Encounter Details Date Type Department Care Team (Late st Contact Info) Description 07/19/2024 Result Scan Unspecified Department <No scans attached> Allergies Active Allergy Reactions Criticality Noted Date [...] as of this encounter (statuses as of 07/20/2024) Medications Medication Sig Dispensed Refills Start Date [...] as of this encounter (statuses as of 07/20/2024) Active Problems Problem Noted Date Diagnosed Date [...] as of this encounter (statuses as of 07/20/2024) Resolved Problems Problem Noted Date Diagnosed Date [...] as of this encounter (statuses as of 07/20/2024) Immunizations Name Administration Dates Next Due COVID-19 mRNA, LNP-s, No Pre serve, 2-Dose Series ([employer] 10/22/2022,10/20/2021,03/24/2021,0511/2020 H1N1 2009 Influenza, IM 11/23/2009 PPD [...] lent, No Preserve, IM 09/17/2016 Seasonal Influenza, Trivalen t, (IIV3), with Preserv, (Fluzone) 07/14/2015,08/02/2014,09/06/2013 07/14/2016 Seasonal Influenza, Trivalen t, Adjuvanted, 65+ YRS, PF, (Fluad) 08/17/2021,08/13/2019 TD, Preservative Free 07/12/2008 TDAP (age [...] [facility] [address] [place] [id number] Alycia Terry DO [address] [place] [id number] 09/06/2024 11:00 AM EST Office Visit Allergy/Immunology [facility] [address] [place] [address] Jenna Romero PA-C [address] [place] [id number] 09/13/2024 1:30 PM EST Office Visit Cardiology, [facility] [address] [place] [id number] Reva Patel CRNP [address] [place] [id number] Scheduled Procedures Name Priority Associated Diagnoses Date/Ti me COLONOSCOPY FLEXIBLE PROXIMA L DIAGNOSTIC Recall History of colonic polyps Health Maintenance Due Date Last Done Comments Albumin/Creatinine Ratio 1958 Adult Wellness Visit 2006 Depression Monitoring 09/07/2021 09/07/2020 COVID-19 Vaccine ( season) 2024 10/22/2022, 10/20/2021, 03/24/2021, Additional history exists Influenza Vaccine (FLU shot) (#1) 2024 07/21/2023, 07/21/2023, 08/23/2022, Additional history exists TSH 09/16/2024 09/16/2023, 05/2022, 02/04/2022, Additional history exists GFR 03/01/2025 03/01/2024, 09/03, 09/09/2022, Additional history exists DXA Scan 06/14/2027 06/14/2020 Colonoscopy 08/21/2028 08/21/2023, 03/30/2010 DTap/Tdap Vaccines (2 - Td or Tdap) 12/29/2030 [...] this encounter Medical Devices Implanted Type Area Hoop Flaring Machine Operator Device Identifier Shelf Expiration Date Model / Serial / Lot Lens 24.0 Mx60 - [id number] - [id number] Implanted:Qty: 1 on 06/18/2017 by Dom Sullivan MD at OR [facility] Right: Eye [employer] : SURGICAL 12/03/2019 MX60-24.0 / [id number] / [id number] Lens 23.5 Mx60 - [id number] - [id number] Implanted:Qty: 1 on 07/23/2017 by Dom Sullivan MD at OR [facility] Left: Eye [employer] : SURGICAL 12/03/2019 MX60-23.5 / [id number] / [id number] documented as of this encounter Procedures Procedure Name Priority Date/Time Associated Diagnosis Comments CARDIAC CATH SCANNED RESULT 07/19/2024 documented in this encounter Results * CARDIAC CATH SCANNED RESULT (07/19/2024) 07/19/2024 No Physician Data Unknown CARD CATH documented in this encounter Advance Directives * [...] 4:23 PM 09/10/2008 7:13 PM Care Teams Rotary Kiln Operator Relationship Specialty Start Date End Date Alycia Terry DO [address] [place] [address] PCP - General Family Medicine 05/18/20 documented as of this encounter
--- OUTSIDE RECORDS SUMMARY | 2024-07-27 06:07 | External Medical Summary | Summary of Care ---
Author Name Unknown Organization [facility] Address [address] [place] [address] Phone [phone] Care Team Providers Care Floatlight Powder Mixer Name Role Phone Alycia Terry DO Primary Care Provider Reason for Visit * Reason Onset Date Comments Referral 07/22/2024 Encounter Details Date Type Department Care Team (Late st Contact Info) Description 07/22/2024 [facility] [address] [place] [address] Alycia Terry DO 200 [facility] [place] [address] Referral Allergies Active Allergy Reactions Criticality Noted Date [...] as of this encounter (statuses as of 07/24/2024) Medications Medication Sig Dispensed Refills Start Date [...] as of this encounter (statuses as of 07/24/2024) Active Problems Problem Noted Date Diagnosed Date [...] as of this encounter (statuses as of 07/24/2024) Resolved Problems Problem Noted Date Diagnosed Date [...] IgG for age [id number]/18/20162022 Recurrent sinusitis 03/11/2013 03/10/20 23 Allergic rhinitis 11/18/2011 01/10/2023 Abdominal pain, [...] as of this encounter (statuses as of 07/24/2024) Immunizations Name Administration Dates Next Due COVID-19 mRNA, LNP-s, No Pre serve, 2-Dose Series (Video Passports) 10/22/2022,10/20/2021,03/24/2021,05/0 11/2020 H1N1 2009 Influenza, IM 11/23/2009 [...] Miscellaneous Notes * Telephone Encounter - Yancy Sanchez LPN - 07/24/2024 12:32 PM EDT Pt has hospital follow up scheduled on 07/27/24. FYI * Telephone Encounter - Unique Jaimes CPhT - 07/22/2024 11:40 AM EDT Patient is a requesting a referral for medicare approved home care. Patient was discharged yesterday for hospital she had a heat attack. Please advise Thank you, Unique Jaimes CPhT District Associate Judge III [facility] [address] [place] [address], [address] [place] [address] [phone] documented in this encounter Plan of Treatment Upcoming Encounters Date Type Department Care Team (Late st Contact Info) Description 07/27/2024 11:00 AM EDT Office Visit [facility] 200 [facility] [place] [address] Alycia Terry DO [address] [place] [id number] 08/17/2024 8:40 AM EDT Office Visit [facility] [place] [address] [place] [address] Alycia Terry DO [address] [place] [address] 09/06/2024 11:00 AM EST Office Visit Allergy/Immunology [facility] [place] [facility] [place] [address] Jenna Romero PA-C [facility] [place] [address] [address] 09/13/2024 1:30 PM EST Office Visit Cardiology, [facility] [address] [facility] [place] [address] Reva Patel CRNP [address] [place] [address] Scheduled Procedures Name Priority Associated Diagnoses Date/Ti [...] this encounter Medical Devices Implanted Type Area Central Office Operator Device Identifier Shelf Expiration Date Model / Serial / Lot Lens 24.0 Mx60 - [id number] - [id number] Implanted:Qty: 1 on 06/18/2017 by Dom Sullivan MD at OR [facility] Right: Eye [employer] : SURGICAL 12/03/2019 MX60-24.0 / [id number] / [id number] Lens 23.5 Mx60 - [id number] - [id number] Implanted:Qty: 1 on 07/23/2017 by Dom Sullivan MD at OR [facility] Left: Eye [employer] : SURGICAL 12/03/2019 MX60-23.5 / [id number] / [id number] documented as of this encounter Advance Directives [...] 4:23 PM 09/10/2008 7:13 PM Care Teams Floatlight Powder Mixer Relationship Specialty Start Date End Date Alycia Terry DO [address] [place] [address] PCP - General Family Medicine 05/18/20 documented as of this encounter
[2024-07-27 06:35] LABS: BUN Creatinine Ratio 13.3 (10-20); Calcium 8.8 mg/dl (8.6-10.3); Creatinine Clr Calc Pharmacy 55.4 ml/min; Est GFR (African American) 84.8 ml/min; Est GFR (Non-African American) 73.2 ml/min; Potassium 3.8 mmol/L (3.5-5.1)
[2024-07-27 06:40] LABS: Basophils # (auto) 0.06 K/uL (0.00-0.20); Basophils % (auto) 0.9 %; Eosinophils # (auto) 0.21 K/uL (0.00-0.50); Hematocrit (blood only) 38.1 % (37.0-47.0); Hemoglobin 13.1 g/dl (12.0-16.0); Immature Granulocytes # (auto) 0.09 K/uL (0.01-0.20); Immature Granulocytes % (auto) 1.3 %; Lymphocytes # (auto) 1.93 K/uL (1.20-3.40); Mean Corpuscular Hemoglobin 31.7 pg (25.0-34.0); Mean Corpuscular Hgb Conc 34.4 g/dL (32.0-36.0); Mean Corpuscular Volume 92.3 fL (80.0-100.0); Monocytes # (auto) 0.65 K/uL (0.11-0.59); Monocytes % (auto) 9.4 %; Neutrophils # (auto) 3.96 K/uL (1.40-6.50); Neutrophils % (auto) 57.4 %; Platelet Count 216 K/uL (130-400); RDW Coefficient of Variation 12.4 % (11.5-14.5); RDW Standard Deviation 42.1 fL (36.4-46.3); Red Blood Count 4.13 M/uL (4.20-5.40)
[2024-07-27 06:48] LABS: Troponin I High Sensitivity 53.7 pg/ml (0-14)
[2024-07-27 06:55] LABS: Partial Thromboplastin Time 27 Seconds (21-31)
--- NOTE | 2024-07-27 08:31 | Cardiology Consultation ---
Date of Consultation July 27, 2024 Assessment & Plan (1) Chest pain: (2) Elevated troponin: (3) H/O right coronary artery stent placement: (4) ASCVD (arteriosclerotic cardiovascular disease): (5) Dyslipidemia, goal LDL below 70: Plan 84-year-old female recently hospitalized with crescendo angina, NSTEMI, status post PCI of the RCA with 2 drug-eluting stents on July 19, 2024. Patient returns to [facility] July 26, 2024 with recurrent chest heaviness associated w ith shortness of breath and diaphoresis, symptoms reminiscent of those associated with a recent NSTEMI. EKG without acute ST segment change. Troponin minimally elevated. Resting echocardiography requested. Patient to be kept n.p.o. for further cardiac evaluation pending resting echocardiography and evaluation by Dr. Masters. Supervising Physician Co-Signing Physician Notes I have personally performed a history and physical examination on the patient. I have reviewed the advance practitioner's documentation, and I agree with, and take responsibility for the plan of care. 84-year-old female present to the emergency department with recurrent chest pressure. Patient blames incident on "doing too much". Chest pain-free over the past 18 hours. High-sensitivity troponin mildly elevated, however, lower than noted at the time of myocardial infarction last week. Bedside echocardiogram with a trivial circumferential pericardial effusion with moderate organization suggesting post-myocardial infarction pericardial effusion. There are no new regional wall motion abnormalities to suggest ischemia. No ischemic ECG changes on admission. Recommend addition of colchicine. Continue other cardiovascular medications including dual antiplatelet therapy. Monitor on telemetry overnight with possible discharge in the a.m. 07/27/2024. I spent a total of 40 minutes on the date of service in preparation, delivery, and documentation of the care provided to this patient, excluding any time spent in the performance of separately billed services. Masuod Masters DO, [facility] History of Present Illness Reason for Consultation: Chest pain Requesting Physician: Dr. Cesar Attending Physician: Dr. Josiah Sprague DO History of Present Illness Olivia Mckeon is a 84-year-old female who was recently hospitalized at [facility] (07/16/2024 to 07/20/2024), presenting at that time with symptoms of crescendo angina, non-ST segment elevation myocardial infarction. Resting echocardiography with preserved LV systolic function. Coronary angiography on July 19, 2024 revealed severe proximal RCA stenosis with thrombosis, undergoing successful PCI with implantation of 2 overlapped drug-eluting stents covering the proximal lesion as well as residual mid vessel stenosis. Luminal irregularities otherwise observed. Dual antiplatelet therapy with aspirin 81 mg daily and Brilinta 90 mg BID advised. Beta-lakisha therapy was not recommended due to baseline bradycardia. MINNA I therapy was not prescribed due to history of angioedema with past use of Lisinopril. Rosuvastatin 20 mg daily advised. Prior to arrival amlodipine 2.5 mg per day was resumed. "I just had some heaviness on my chest." [place] well on discharge. Daughter was staying with her the first few days however she had to go back to work two nights ago. Lives alone. Compliant with medications. Experienced upper anterior chest heaviness over the past two days associated with shortness of breath and diaphoresis that seem to be aggravated by activity and improved with rest. She did not take any sublingual nitroglycerin. Feels like she may have overdone it lifting heavy things including getting the winter coats out of the chest Called EMS after experiencing another episode of chest heaviness associated with shortness of breath and diaphoresis, pain radiating down the left arm, symptoms similar to those associated with recent NSTEMI. Chest heaviness persisted on arrival to the ER. EKG without acute ST segment change. High-sensitivity troponin: 42.2 -> 43.3-> 49.6-> 53.7 Resting echocardiography pending Chest x-ray without active disease in the chest Chest CTA negative for PE, aortic catastrophe, airspace consolidation, or pleural effusion Telemetry: Sinus/sinus bradycardia, heart rates predominantly in the 50s and 60s Patient has been chest discomfort free since initial presentation in the ER. Problem list: ASCVD Status post July 19, 2024 PCI of the RCA with 2 drug-eluting stents following NSTEMI Resting bradycardia Angioedema with past use of MINNA inhibitor Hypertension Dyslipidemia Asthma History of tobacco use Obstructive sleep apnea GERD Hypothyroidism Dementia Family History: Father with CAD, details unknown. Mother with stomach cancer. One brother with lung cancer. Three sisters are alive, one with crohns disease. Social History: Quit smoking in 1999. No alcohol. No illegal/illicit drug use. . Five children. Allergies Allergy/AdvReac Type Severity Reaction Status Date / Time beet Allergy Severe Anaphylaxis Verified 07/27/24 00:21 from "red beets" Sulfa (Sulfonamide Allergy Severe HIVES, Verified 07/26/24 20:58 Antibiotics) SWELLING atorvastatin Allergy Intermediate REDNESS,ITCHY Verified 07/26/24 20:58 RASH azithromycin Allergy Intermediate Redness of Verified 07/26/24 20:58 Skin, heart racing bee venom protein (honey bee) Allergy Intermediate WHEEZING,ITCHY Verified 07/26/24 20:58 EYES, REDNESS doxycycline Allergy Intermediate REDMITCHY Verified 07/26/24 20:58 HIVES, THROAT SWELLS niacin Allergy Intermediate UNKNOWN TO Verified 07/26/24 20:58 PT-REDNESS? propofol Allergy Intermediate LOW Verified 07/26/24 20:58 BP,"WENT OUT"-BLACKED OUT terfenadine Allergy Intermediate HEART Verified 07/26/24 20:58 PALPITATIONS lisinopril Allergy Unknown angioedema Verified 07/26/24 20:58 possibly related to lisinopril fentanyl Allergy Unresponsiv Unverified 07/26/24 20:59 e ranitidine AdvReac Intermediate headache Verified 07/26/24 20:58 sulfamethoxazole AdvReac Intermediate GI UPSET Verified 07/26/24 20:58 [From Bactrim] trimethoprim [From Bactrim] AdvReac Intermediate GI UPSET Verified 07/26/24 20:58 Home Medications Medication Instructions Recorded Confirmed Type albuterol sulfate 90 mcg/actuation 2 puffs inhalation Q4H PRN 06/08/19 07/26/24 History aerosol inhaler cough,sob,wheezing #1 g cyanocobalamin (vitamin B-12) 1,000 mcg PO QAM #90 tabs 06/08/19 07/26/24 History 1,000 mcg tablet beclomethasone dipropionate 80 2 inh inhalation BID 09/02/20 07/26/24 History mcg/actuation HFA breath activated aerosol (Qvar RediHaler) cholecalciferol (vitamin D3) 25 25 mcg PO QAM 09/02/20 07/26/24 History mcg (1,000 unit) chewable tablet (Vitamin D3) levothyroxine 75 mcg tablet 75 mcg PO QAM 09/02/20 07/26/24 History amlodipine 2.5 mg tablet 2.5 mg PO QAM 08/13/23 07/26/24 History diphenhydramine HCl 25 mg capsule 25 mg PO TID PRN Allergic Reaction 08/13/23 07/26/24 History (Benadryl) epinephrine 0.1 mg/0.1 mL 0.1 mg IM UD PRN Anaphylaxis 08/13/23 07/26/24 History injection, auto-injector omeprazole 20 mg tablet,delayed 20 mg PO QAM 08/13/23 07/26/24 History release sertraline 100 mg tablet 50 mg PO BID 07/16/24 07/26/24 History aspirin 81 mg tablet,delayed 81 mg PO QAM #60 tabs 07/20/24 07/26/24 Rx release ticagrelor 90 mg tablet (Brilinta) 90 mg PO BID #120 tabs 07/20/24 07/26/24 Rx rosuvastatin 20 mg tablet 20 mg PO QAM 07/26/24 07/26/24 History Patient History Medical History Nonrheumatic tricuspid (valve) insufficiency Nonrheumatic aortic (valve) insufficiency Umbilical hernia Ambulatory dysfunction uses walker Asthma well controlled, no asthma attacks in the last 2 years per pt History of anesthesia reaction cardiac arrest after her multiple colonoscopies at [facility] because she was given too much medication and states she is "sensitive to medications". Did not have complications at last colonoscopy per pt. States "no anesthesia allergy, just sensitive to it". Surgical History History of D&C History of section History of laryngoscopy has "polyps" present History of bronchoscopy History of discectomy Dr Reese, details unknown by pt History of cataract surgery bilateral History of colonoscopy Family History Unknown Gastric cancer Schizophrenia Sister Crohn's disease Brother Schizophrenia Lung cancer Son Myocardial infarction Daughter Breast cancer Mother Myocardial infarction Cancer Father Lung cancer Cancer Grandmother (Maternal) Heart trouble Aunt Convulsion Social History Smoking Status: Former smoker Tobacco Type: Cigarettes Second Hand Exposure: No; Do You Dip or Chew Tobacco: No; Tobacco Cessation Education Requested by Patient: No Hx Alcohol Use: No Hx Substance Use: No Preferred Language: Kazakh Communication Ability: Effective Blower And Compressor Assembler Required: No Beliefs That Will Affect Care: None Current Living Situation: Alone and Other Current Living Situation Comment: [facility]- Indep. living Other Information That Helps Us Care for You: Yes (Pt can't cook; eats frozen dinners, soup, & other microwave foods) Feels Safe at Home: Yes Safety Concerns: Feels Safe At This Time Assistive Devices: Walker Review of Systems Review of Systems: Complete Review of Systems is as stated above, negative, or noncontributory. Physical Exam Physical Exam: General: A&Ox3. NAD. HENT: Normocephalic. Atraumatic. Eyes: PER. Conjunctiva pink, sclera clear. Neck: No JVD. No carotid bruits Heart: RRR, 56 bpm. Grade I-II systolic ejection murmur. No diastolic murmur. Lungs: Clear to auscultation. Abdomen: +BS. Soft. Nontender. No masses or organomegaly. Extremities: No clubbing, cyanosis, or edema. Limited neurological examination is without focal deficits. Pulses: radial=2/4, posterior tibial=2/4. Results & Data Vital Signs (Past 12 Hours) Vital Signs Temp Pulse Pulse Resp BP BP Pulse Ox 07/27/24 07:27 36.5 C 60 18 110/58 L 95 07/27/24 03:13 36.5 C 60 18 119/62 96 07/26/24 23:00 07/26/24 23:00 36.6 C 63 20 138/72 97 07/26/24 22:56 61 07/26/24 22:17 66 20 148/71 H 97 07/26/24 21:02 57 L 20 147/114 H 99 O2 Del Method 07/27/24 07:27 Room Air 07/27/24 03:13 Room Air 07/26/24 23:00 Room Air 07/26/24 23:00 Room Air 07/26/24 22:56 07/26/24 22:17 Room Air 07/26/24 21:02 Room Air Laboratory Results Cardiac Enzymes 07/26/24 07/26/24 07/26/24 Range/Units 16:03 18:46 22:54 AST 17 (13-39) U/L Troponin I High Sens 42.2 H 43.3 H 49.6 H (0-14) pg/ml 07/27/24 Range/Units 05:43 AST (13-39) U/L Troponin I High Sens 53.7 H* (0-14) pg/ml Coagulation 07/26/24 07/27/24 Range/Units 16:03 05:43 PT 10.9 (9.0-12.0) Seconds APTT 27 (21-31) Seconds CBC 07/26/24 07/27/24 Range/Units 16:03 05:42 WBC 8.65 6.90 (4.8-10.8) K/ul RBC 4.27 4.13 L (4.20-5.40) M/uL Hgb 13.4 13.1 (12.0-16.0) g/dl Hct 39.4 38.1 (37.0-47.0) % Plt Count 237 216 (130-400) K/uL Neut # (Auto) 4.82 3.96 (1.40-6.50) K/uL Lymph # (Auto) 2.57 1.93 (1.20-3.40) K/uL [place] # (Auto) 0.89 H 0.65 H (0.11-0.59) K/uL Eos # (Auto) 0.19 0.21 (0.00-0.50) K/uL Baso # (Auto) 0.05 0.06 (0.00-0.20) K/uL Comprehensive Metabolic Panel 07/26/24 07/27/24 Range/Units 16:03 05:43 Sodium 138 141 (136-145) mmol/L Potassium 3.8 3.8 (3.5-5.1) mmol/L Chloride 107 107 (98-107) mmol/L Carbon Dioxide 25 27 (21-32) mmol/L BUN 15 10 (6-23) mg/dl Creatinine 0.77 0.75 (0.6-1.2) mg/dl Glucose 71 84 (70-99(Fasting)) mg/dl Calcium 9.2 8.8 (8.6-10.3) mg/dl AST 17 (13-39) U/L ALT 14 (7-52) U/L Alkaline Phosphatase 77 (34-104) U/L Total Protein 6.6 (6.0-8.3) gm/dl Albumin 4.1 (3.4-5.0) gm/dl Intake and Output 07/26/24 07/27/24 07/27/24 22:59 06:59 14:59 Intake Total 240 / 240 Output Total 1500 / 1500 Balance -1260 / -1260 Intake: Oral 240 / 240 Output: Urine 1500 / 1500 Other: Other Intake Source Npo # Unmeasured Voids 1 Weight 84.4 kg 82.1 kg Weight Measurement Method Built in [facility] Built in [facility] Diagnostic Findings Admission CXR: Cardiomegaly and emphysema with no active disease in the chest. Chest CTA Findings: Thyroid: Imaged portions of the thyroid gland are normal in size and attenuat ion. Thoracic aorta: No intramural hematoma is seen on the unenhanced series. There is atherosclerotic calcification of the thoracic aorta, which is normal in caliber and demonstrates bovine variant arch anatomy. No dissection is seen. The arch vessels are widely patent. Pulmonary vasculature: The pulmonary trunk is normal in caliber. There are no filling defects identified in the main, lobar, or segmental pulmonary vessels to indicate pulmonary embolus. Heart: The heart is normal in size noting a small pericardial effusion. There is coronary artery atherosclerosis. Lungs and pleural spaces: Emphysematous change is similar to previous. No airspace consolidation or pleural effusion is identified. Scarring/atelectasis is seen at the lung bases. Scattered calcified granulomas are observed. The trachea and central airways are clear. A 6 mm focus of pleural thickening along the minor fissure on image #113 is unchanged, as are a 3 mm left upper lobe nodule on image #76, a 4 mm left upper lobe nodule on image #104, and a 5 mm left lower lobe nodule image #158. Pleural thickening on left major fissure on image #142 is also unchanged. A 3 mm right lower lobe pulmonary nodule on image #139 was not seen in 2019. Mediastinum: There is no mediastinal lymphadenopathy. Precious: Clear. Axillae: There is no axillary lymphadenopathy. Upper abdomen: There is a small hiatal hernia. A 3 cm cyst arises from the left kidney. Additional subcentimeter cortical hypodensities are seen in the right kidney these also likely represent cysts but are too small for definitive characterization. There is a 10 mm IPMN seen in the pancreatic tail. Skeletal structures: The skeletal structures are osteopenic. Degenerative change is noted in the shoulders and spine. No lytic or blastic bony lesions are seen. CT A/P: Mild nonspecific inflammatory stranding of the right groin without abscess. Head CT: No acute intracranial finding. There is a 1.1 cm mucous retention cyst or polyp of the left sphenoid sinus. EKG: Sinus at 61 bpm with a first degree AV block, no acute ST segment change. Telemetry: Sinus in the 50's and 60's (1) Chest pain Chest pain type: unspecified Qualified Code(s): R07.9 - Chest pain, unspecified
[2024-07-27] MEDS: amLODIPine BESYLATE 5 MG TAB PO SCH (08:46)
[2024-07-27] MEDS: FLUTICASONE FUROATE 100MCG 14 PUFFS/INHALER INH SCH (08:46)
[2024-07-27] MEDS: ENOXAPARIN INJ 40 MG/0.4 ML SYR SQ SCH (08:47)
[2024-07-27] MEDS: ASPIRIN 81 MG ECTAB PO SCH (08:47)
[2024-07-27] MEDS: PANTOprazole 40 MG TAB PO SCH (08:47)
[2024-07-27] MEDS: ROSUVASTATIN CALCIUM 20 MG TAB PO SCH (08:47)
--- NOTE | 2024-07-27 13:46 | Hospitalist Progress Note ---
<Statement entered by Josiah Sprague, DO - 07/27/24 14:49> I have seen and examined the patient and have discussed the case with the provider above. I have reviewed the advanced practitioner's documentation, and I agree with, and take responsibility for that plan of care. 8 minutes spent on care and coordination. Patient resting comfortably. Troponins flat, suspect continuing to trend down from non-STEMI last week. Suspect ongoing medical management, await final cardiology recommendations Plan of care as outlined below Date of Service July 27, 2024 Assessment & Plan (1) Chest pain: Plan: Patient is 84-year-old female with PMH HTN, HLD, hypothyroidism, asthma, depression, anxiety presented to ER with 2/2 chest heaviness that was similar to presentation 1 week ago that resulted in 2 MERCEDES to RCA Pt hospitalized 07/16-07/20 for NSTEMI and chets pain. Resting echo revealed preserved EF. She underwent cardiac cath which reveal severe proximal RCA stenosis with thrombosis. She underwent PCI with overlapping MERCEDES x 2 to RCA. She was d/c on DAPT with ASA and brilinta. She was not on BB therapy due to relative bradycardia and she was not a candidate for MINNA due to hx of angioedema. Chest Heaviness CAD with recent MERCEDES x2 to RCA on 07/19 [facility] cardiology on board continue ASA, brilinta, statin again not on BB due to relative bradycardia her trop has remained flat await result of resting echo and further cardiology recommendations Chronic medical conditions as below: hypertension, stable hyperlipidemia, on statin Rx bronchial asthma, stable hypothyroidism, euthyroid as of recent TSH Constipation symptoms Dementia, patient mentating well SPN - follow up CT chest in 3 months past tobacco abuse DVT ppx: SQ Lovenox Dispo: pt to remain hospitalized, awaiting cardiology recs FULL CODE PCP: [place] A total of 48 minutes was spent coordinating, documenting, and providing care for this patient excluding time spent in the performance of separately billed services. This included personally viewing all current laboratories and imaging studies, medication reconciliation, outpatient chart review, and discussion with specialists. Admission and Anticipated Discharge Date Admission Date: July 26, 2024 Subjective Pt was seen resting in bed. She reports no further chest heaviness since admission to hospital. She states Chest heaviness was similar to prior to she had her stents place. It was associated with SOB and diaphoresis. She denies f/c/s, chest pain, sob, n/v/d. Review of Systems Review of Systems: All systems reviewed & are unremarkable except as noted in HPI & below Physical Exam Physical Exam: Gen: WD/WN, NAD, A&O x3 HEENT: Normocephalic, atraumatic, conjunctivae moist, sclerae anicteric, mucous membranes moist. Lung: Clear to Auscultation bilaterally, no wheezes/rales/rhonchi Heart: Regular rate, regular rhythm, I/ REBECCA, no rubs, or gallops Abdomen: Soft, NT, ND +BS x 4 Extremities: No edema Skin: Warm, no rash, negative turgor. Results & Data Results & Data Vital Signs (Past 12 Hours) Vital Signs Temp Pulse Resp BP Pulse Ox O2 Del Method 07/27/24 10:58 36.8 C 61 19 113/65 98 Room Air 07/27/24 07:27 36.5 C 60 18 110/58 L 95 Room Air 07/27/24 03:13 36.5 C 60 18 119/62 96 Room Air Laboratory Results Short CBC 07/26/24 07/27/24 Range/Units 16:03 05:42 WBC 8.65 6.90 (4.8-10.8) K/ul Hgb 13.4 13.1 (12.0-16.0) g/dl Hct 39.4 38.1 (37.0-47.0) % Plt Count 237 216 (130-400) K/uL BMP 07/26/24 07/27/24 16:03 05:43 Sodium 138 141 Potassium 3.8 3.8 Chloride 107 107 Carbon Dioxide 25 27 BUN 15 10 Creatinine 0.77 0.75 Glucose 71 84 Calcium 9.2 8.8 Liver Function 07/26/24 Range/Units 16:03 Total Bilirubin 0.5 (0.2-1.0) mg/dl AST 17 (13-39) U/L ALT 14 (7-52) U/L Alkaline Phosphatase 77 (34-104) U/L Albumin 4.1 (3.4-5.0) gm/dl Urine 07/27/24 Range/Units Unknown Urine Color Yellow Urine Appearance Clear (Clear) Urine pH 5.5 (4.5-7.5) Ur Specific [place] > 1.045 H (1.000-1.030) Urine Protein Negative (Negative) Urine Glucose (UA) Negative (Negative) Medications Administered Current Inpatient Medications Acetaminophen (Acetaminophen 325 Mg Tab) 650 mg PO QID PRN PRN Reason: pain/fever Stop: 08/25/24 20:50 Amlodipine Besylate (Amlodipine Besylate 5 Mg Tab) 2.5 mg PO QAM [facility] Stop: 08/26/24 08:59 Last Admin: 07/27/24 08:46 Dose: 2.5 mg Aspirin (Aspirin 81 Mg Ectab) 81 mg PO QAM [facility] Stop: 08/26/24 08:59 Last Admin: 07/27/24 08:47 Dose: 81 mg Enoxaparin Sodium (Enoxaparin Inj 40 Mg/0.4 Ml Syr) 40 mg SQ QAM [facility] Stop: 08/26/24 08:59 Last Admin: 07/27/24 08:47 Dose: 40 mg Fluticasone Furoate (Fluticasone Furoate 100mcg 14 Puffs/Inhaler) 1 puffs INH DAILY [facility] Stop: 08/26/24 08:59 Last Admin: 07/27/24 08:46 Dose: 1 puffs Promethazine HCl (Phenergan) 6.25 mg in 50.25 mls @ 201 mls/hr IV Q6H PRN PRN Reason: Nausea And Vomiting Stop: 08/25/24 20:50 Levothyroxine Sodium (Levothyroxine Sodium 75 Mcg Tablet) 75 mcg PO DAILYBB [facility] Stop: 08/26/24 06:29 Last Admin: 07/27/24 05:56 Dose: 75 mcg Nitroglycerin (Nitroglycerin Sl 0.4 Mg/Tab Tab) 0.4 mg SL Q5M PRN PRN Reason: Chest Pain Stop: 08/25/24 20:50 Pantoprazole Sodium (Pantoprazole 40 Mg Tab) 40 mg PO QAM [facility] Stop: 08/26/24 08:59 Last Admin: 07/27/24 08:47 Dose: 40 mg Rosuvastatin Calcium (Rosuvastatin Calcium 20 Mg Tab) 20 mg PO QAM [facility] Stop: 08/26/24 08:59 Last Admin: 07/27/24 08:47 Dose: 20 mg Sertraline HCl (Sertraline Hcl 50 Mg Tablet) 50 mg PO BID [facility] Stop: 10/24/24 00:14 Last Admin: 07/27/24 08:47 Dose: 50 mg Ticagrelor (Ticagrelor 90 Mg Tab) 90 mg PO BID [facility] Stop: 08/26/24 00:14 Last Admin: 07/27/24 08:47 Dose: 90 mg Tramadol HCl (Tramadol Hcl 50 Mg Tablet) 25 - 50 mg PO Q4H PRN PRN Reason: Pain Stop: 08/25/24 20:50
--- OUTSIDE RECORDS SUMMARY | 2024-07-27 14:47 | External Medical Summary | Summary of Care ---
Author Name Unknown Organization [facility] Address [address] [place] [address] Phone [phone] Care Team Providers Care Residential Carpenter Name Role Phone Alycia Terry DO Primary Care Provider Reason for Visit * Reason Onset Date Comments Referral 07/22/2024 Encounter Details Date Type Department Care Team (Late st Contact Info) Description 07/22[facility] [address] [place] [address] Alycia Terry DO 200 [facility] [place] [address] Referral Allergies Active Allergy Reactions Criticality Noted [...] as of this encounter (statuses as of 07/26/2024) Medications Medication Sig Dispensed Refills Start Date [...] as of this encounter (statuses as of 07/26/2024) Active Problems Problem Noted Date Diagnosed Date [...] as of this encounter (statuses as of 07/26/2024) Resolved Problems Problem Noted Date Diagnosed Date Resolved Date LVH (left ventricular hypertrophy) 11/19/2022 01/10/2023 Recurrent major depressive d isorder, in partial remission 11/22/2021 01/10/2023 Class 2 severe obesity due t o excess calories with serious comorbidity and body mass index (BMI) of 36.0 to 36.9 in adult 11/22/2021 Dry eyes, bilateral 08/03/2018 01/11/20 Seborrheic dermatitis 08/03/20182022 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 0111/18/20162022 Recurrent sinusitis 03/11/2013 01/11/20 Allergic rhinitis 11/18/2011 01/10/2023 Abdominal pain, epigastric [...] as of this encounter (statuses as of 07/26/2024) Immunizations Name Administration Dates Next Due COVID-19 mRNA, LNP-s, No Pre serve, 2-Dose Series (Liquiteria) 10/22/2022,10/20/2021,03/24/2021,05/0 11/2020 H1N1 2009 Influenza, IM 11/23/2009 [...] encounter Miscellaneous Notes * Telephone Encounter - Alycia Terry DO - 07/26/2024 4:19 PM EDT Hospital can order now since they had a "face to face" encounter in last 30 days- I can order when I see you- but not now because it requires a "face to face encounter" within last 30 days for me to order * Telephone Encounter - Yancy Sanchez LPN - 07/24/2024 12:32 PM EDT Pt has hospital follow up scheduled on 07/27/24. FYI * Telephone Encounter - Unique Jaimes CPhT - 07/22/2024 11:40 AM EDT Patient is a requesting a referral for medicare approved home care. Patient was discharged yesterday for hospital she had a heat attack. Please advise Thank you, Unique Jaimes CPhT Founder President And Ceo III [facility] [address] [place] [address], [address] [place] [address] [address] documented in this encounter Plan of Treatment Upcoming Encounters Date Type Department Care Team (Late st Contact Info) Description 07/27/2024 11:00 AM EDT Office Visit [facility] [address] [place] [address] Alycia Terry DO [address] [place] [address] 08/17/2024 8:40 AM EDT Office Visit [facility] [place] [address] [place] [address] Alycia Terry DO [address] [place] [address] 09/06/2024 11:00 AM EST Office Visit Allergy/Immunology [facility] [place] [address] [place] [address] Jenna Romero PA-C 200 [facility] [place] [address] 09/13/2024 1:30 PM EST Office Visit Cardiology, [facility] [address] [place] [address] Reva Patel CRNP [address] [place] [address] Scheduled Procedures Name Priority Associated Diagnoses Date/Ti [...] this encounter Medical Devices Implanted Type Area Operational Intelligence Officer Device Identifier Shelf Expiration Date Model / Serial / Lot Lens 24.0 Mx60 - [id number] - [id number] Implanted:Qty: 1 on 06/18/2017 by Dom Sullivan MD at OR [facility] Right: Eye [employer] : SURGICAL 12/03/2019 MX60-24.0 / [id number] / [id number] Lens 23.5 Mx60 - [id number] - [id number] Implanted:Qty: 1 on 07/23/2017 by Dom Sullivan MD at OR [facility] Left: Eye [employer] : SURGICAL 12/03/2019 MX60-23.5 / [id number] / [id number] documented as of this encounter Advance Directives [...] 4:23 PM 09/10/2008 7:13 PM Care Teams Residential Carpenter Relationship Specialty Start Date End Date Alycia Terry DO [address] [place] [address] PCP - General Family Medicine 05/18/20 documented as of this encounter
[2024-07-27] MEDS: COLCHICINE 0.6 MG TAB PO SCH (17:12)
--- NOTE | 2024-07-27 21:10 | Electrocardiogram Report ---
Test Reason : Blood Pressure : */* mmHG Vent. Rate : 61 BPM Atrial Rate : 61 BPM P-R Int : 226 ms QRS Dur : 74 ms QT Int : 438 ms P-R-T Axes : 47 -7 81 degrees QTcB Int : 440 ms Sinus rhythm with 1st degree A-V block Nonspecific T wave abnormality When compared with ECG of 19-Jul-2024 11:15, No significant change was found Confirmed by Panchito Ahmadi ([id number]) on 07/27/2024 9:09:45 PM Referred By: REFERRED SELF Confirmed By: Panchito Ahmadi
--- OUTSIDE RECORDS SUMMARY | 2024-07-28 05:18 | External Medical Summary | Summary of Care ---
Author Name Unknown Organization [facility] Address [address] [place] [address] Phone [phone] Care Team Providers Care Lymphedema Therapist Name Role Phone Alycia Terry DO Primary Care Provider Reason for Visit * Reason Onset Date Comments Referral 07/22/2024 Encounter Details Date Type Department Care Team (Late st Contact Info) Description 07/22/2024 [facility] [address] [place] [address] Alycia Terry DO 200 [facility] [place] [address] Referral Allergies Active Allergy Reactions Criticality Noted [...] as of this encounter (statuses as of 07/27/2024) Medications Medication Sig Dispensed Refills Start Date [...] as of this encounter (statuses as of 07/27/2024) Active Problems Problem Noted Date Diagnosed Date [...] as of this encounter (statuses as of 07/27/2024) Resolved Problems Problem Noted Date Diagnosed Date [...] as of this encounter (statuses as of 07/27/2024) Immunizations Name Administration Dates Next Due COVID-19 mRNA, LNP-s, No Pre serve, 2-Dose Series (S5 Tech) 10/22/2022,10/20/2021,03/24/2021,05/0 11/2020 H1N1 2009 Influenza, IM 11/23/2009 [...] Please advise Thank you, Unique Jaimes CPhT Band Saw Operator III [facility] [address] [place] [address], [address] [place] [address] [address] documented in this encounter Plan of Treatment Upcoming Encounters Date Type Department Care Team (Late st Contact Info) Description 07/27/2024 11:00 AM EDT Office Visit [facility] [address] [place] [address] Alycia Terry DO [address] [place] [address] 08/17/2024 8:40 AM EDT Office Visit [facility] [place] [address] [place] [address] Alycia Terry DO [address] [place] [address] 09/06/2024 11:00 AM EST Office Visit Allergy/Immunology [facility] [place] [address] [place] [address] Jenna Romero PA-C [facility] [place] [address] 09/13/2024 1:30 PM EST Office Visit Cardiology, [facility] [address] [place] [address] Reva Patel CRNP [address] [place] [address] Scheduled Procedures Name Priority Associated Diagnoses Date/Ti [...] this encounter Medical Devices Implanted Type Area Client Account Representative Device Identifier Shelf Expiration Date Model / Serial / Lot Lens 24.0 Mx60 - [id number] - [id number] Implanted:Qty: 1 on 06/18/2017 by Dom Sullivan MD at OR [facility] Right: Eye [employer] : SURGICAL 12/03/2019 MX60-24.0 / [id number] / [id number] Lens 23.5 Mx60 - [id number] - [id number] Implanted:Qty: 1 on 07/23/2017 by Dom Sullivan MD at OR [facility] Left: Eye [employer] : SURGICAL 12/03/2019 MX60-23.5 / [id number] / [id number] documented as of this encounter Advance Directives [...] 4:23 PM 09/10/2008 7:13 PM Care Teams Lymphedema Therapist Relationship Specialty Start Date End Date Alycia Terry DO [address] [place] [address] PCP - General Family Medicine 05/18/20 documented as of this encounter
[2024-07-28] MEDS: ROSUVASTATIN CALCIUM 10 MG TAB PO SCH (08:56)
--- NOTE | 2024-07-28 13:35 | Cardiology Progress Note ---
Date of Service July 28, 2024 Assessment & Plan (1) Chest pain: (2) Elevated troponin: (3) H/O right coronary artery stent placement: (4) ASCVD (arteriosclerotic cardiovascular disease): (5) Dyslipidemia, goal LDL below 70: Plan 84-year-old female recently hospitalized with crescendo angina, NSTEMI, status post PCI of the RCA with 2 drug-eluting stents on July 19, 2024. Recurrent chest pressure Chest pain free since initial presentation EKG without acute change. Troponin minimally elevated (42.2 -> 43.3-> 49.6-> 53.7) Resting echocardiography with hyperdynamic function, without wall motion abnormality, trivial circumferential pericardial effusion with moderate organization suggesting post-RI pericardial effusion Chest x-ray without active disease in the chest Chest CTA negative for PE, aortic catastrophe, airspace consolidation, or pleural effusion Telemetry benign, sinus with rare ectopy only. Colchicine added without difficulty thus far, rosuvastatin reduced. Continue dual antiplatelet therapy and all other cardiac medications. Outpatient cardiology follow-up (currently scheduled on 09/13/2024, office is actively working on a sooner appointment) Admission and Anticipated Discharge Date Admission Date: July 26, 2024 Supervising Physician Co-Signing Physician Notes I have personally performed a history and physical examination on the patient. I have reviewed the advance practitioner's documentation, and I agree with, and take responsibility for the plan of care. 84-year-old female present to the emergency department with recurrent chest pressure. Echocardiogram demonstrating trivial circumferential pericardial fusion suggesting postmyocardial infarction pericardial effusion. Colchicine added 07/27/2024. Rosuvastatin concomitantly reduced. Recommend continue colchicine for minimum 4 to 6 weeks as tolerated. Repeat echocardiogram in 1 to 2 weeks for surveillance. Continue other cardiovascular medications including dual antiplatelet therapy. I spent a total of 25 minutes on the date of service in preparation, delivery, and documentation of the care provided to this patient, excluding any time spent in the performance of separately billed services. Masoud Masters DO, [facility] Subjective Patient seen and examined. Chart, medication, telemetry reviewed. No chest discomfort. No inspiratory issues. No shortness of breath, orthopnea, or PND. Telemetry: Sinus with a first-degree AV block, rare atrial and ventricular ectopy, heart rate predominantly in the 70s. July 27, 2024 TTE ([facility]): Limited views obtained. LVEF 65 to 70%. Normal LV wall motion. Trivial circumferential pericardial effusion with moderate organization. No echocardiographic indications of cardiac tamponade. Review of Systems Review of Systems: Complete Review of Systems is as stated above, negative, or noncontributory. Physical Exam Physical Exam: General: A&Ox3. NAD. HENT: Normocephalic. Atraumatic. Eyes: PER. Conjunctiva pink, sclera clear. Neck: No JVD. No carotid bruits Heart: RRR, 66 bpm. Grade I-II systolic ejection murmur. No diastolic murmur. Lungs: Clear to auscultation. Abdomen: +BS. Soft. Nontender. No masses or organomegaly. Extremities: + Healing ecchymosis. No clubbing, cyanosis, or edema. Limited neurological examination is without focal deficits. Pulses: radial=2/4, posterior tibial=2/4. Results & Data Vital Signs (Past 12 Hours) Vital Signs Temp Pulse Pulse Resp BP Pulse Ox O2 Del Method 07/28/24 11:18 36.8 C 61 17 115/70 94 Room Air 07/28/24 07:52 59 L 07/28/24 07:18 36.8 C 62 17 117/61 96 Room Air 07/28/24 03:29 36.6 C 77 18 120/73 96 Room Air Laboratory Results Intake and Output 07/27/24 07/28/24 07/28/24 22:59 06:59 14:59 Intake Total 2019 300 / 2020 600 / 600 Balance / 2019 300 / 2020 600 / 600 Intake: Oral 600 / 1020 300 / 1020 600 / 600 Other: # Unmeasured Voids 3 3 Weight 82 kg Weight Measurement Method Built in [facility] (1) Chest pain Chest pain type: unspecified Qualified Code(s): R07.9 - Chest pain, unspecified
[2024-07-28 15:36] VITALS: BP 109/69; RESP 16; TEMP 97.3; O2SAT 96
--- NOTE | 2024-07-28 16:23 | Discharge Summary ---
Date of Service July 28, 2024 Admission HPI Per Admitting Provider History obtained from patient and records. Medical history significant for CAD status post stent, hypertension, hyperlipidemia, bronchial asthma, DENICE, GERD, hypothyroidism, mood disorder, dementia, past tobacco abuse. Recent confinement last week for NSTEMI. Subsequent RCA stent placement. Patient discharged on dual antiplatelet Rx and statin Rx. No beta-lakisha due to baseline bradycardia as per cardiology note. Patient would experience intermittent substernal chest heaviness with occasional radiation to the left arm shortly upon discharge home. Compliant with home medications. Transient frontal headache symptoms. Achy abdominal pain which patient attributes to constipation. Chest pain improved after fentanyl administration at the ER. Medical History as above Surgical History : D&C, laryngoscopy, cataract surgeries Family History : Breast cancer, schizophrenia, stomach cancer, heart disease Personal/Social history : Past tobacco abuse, no EtOH intake, retired caregiver Admission Exam Per Admitting Provider GENERAL: Comfortable, obese, slightly anxious, pleasant, no respiratory distress SKIN: Normal color, warm HEENT: [place] palpebral conjunctivae, no ptosis, moist buccal mucosa NECK : Supple, no tenderness CHEST : CTA, no tenderness HEART : RRR, no obvious murmurs ABDOMEN: Some distention, central abdominal tenderness EXTREMITIES : No LE swelling/tenderness, no other conspicuous deformities noted NEUROLOGIC : Coherent, no facial asymmetry, no other gross focality Principal Diagnosis Chest Pain [ACS Ruled-Out] Post-Myocardial Infarction Pericardial Effusion Discharge Exam General: WD/WN, vitals as above, NAD, sitting up in bed, very pleasant, eager to go home. A+Ox3, euthymic affect. HEENT: Normocephalic, atraumatic. PERRL, conjunctivae normal, anicteric sclerae, oropharynx normal. Respiratory: Normal respiratory effort, lungs clear to auscultation, no wheeze, rales, rhonchi. No accessory muscle use. Cardiovascular: Regular rate, rhythm, no murmur, normal peripheral pulses, no BLE edema. Vessels: No JVD. Abdomen/GI: Normal bowel sounds, soft, nontender, no hepatosplenomegaly. Extremities/Musculoskeletal: No cyanosis or clubbing, extremities motor strength intact, moves all extremities. Neurologic: EOMI, no focal deficits, CN's II-XI not formally tested but appear grossly intact bilaterally. Skin: No rashes, normal color, warm/dry. Discharge Data Allergies Allergy/AdvReac Type Severity Reaction Status Date / Time beet Allergy Severe Anaphylaxis Verified 07/27/24 00:21 from "red beets" Sulfa (Sulfonamide Allergy Severe HIVES, Verified 07/26/24 20:58 Antibiotics) SWELLING atorvastatin Allergy Intermediate REDNESS,ITCHY Verified 07/26/24 20:58 RASH azithromycin Allergy Intermediate Redness of Verified 07/26/24 20:58 Skin, heart racing bee venom protein (honey bee) Allergy Intermediate WHEEZING,ITCHY Verified 07/26/24 20:58 EYES, REDNESS doxycycline Allergy Intermediate REDMITCHY Verified 07/26/24 20:58 HIVES, THROAT SWELLS niacin Allergy Intermediate UNKNOWN TO Verified 07/26/24 20:58 PT-REDNESS? propofol Allergy Intermediate LOW Verified 07/26/24 20:58 BP,"WENT OUT"-BLACKED OUT terfenadine Allergy Intermediate HEART Verified 07/26/24 20:58 PALPITATIONS lisinopril Allergy Unknown angioedema Verified 07/26/24 20:58 possibly related to lisinopril fentanyl Allergy Unresponsiv Unverified 07/26/24 20:59 e ranitidine AdvReac Intermediate headache Verified 07/26/24 20:58 sulfamethoxazole AdvReac Intermediate GI UPSET Verified 07/26/24 20:58 [From Bactrim] trimethoprim [From Bactrim] AdvReac Intermediate GI UPSET Verified 07/26/24 20:58 Consultations 07/26/24 19:39 ED Decision to Admit Stat 07/26/24 23:40 Consult Cardiology Routine Ordered Studies 07/26/24 16:26 CTA chest dissec wo/w con [CT angio chest dissec wo/w con] Stat 07/26/24 20:51 CT Abd and Pelvis [CT abd pelvis wo con] Stat CT head/brain wo con Stat Hospital Course (1) Chest pain: (2) Pericardial effusion after myocardial infarction: Plan Olivia Mckeon is an 84y/o F with PMHx significant for HTN, HLD, hypothyroidism, asthma, depression, anxiety and NSTEMI s/p PCI of the RCA with 2 drug-eluding stents [07/19/24] who was admitted on 07/26/24 for evaluation of chest pain/heaviness. Chest Pain/Heaviness [ACS Ruled-Out]: Patient was recently admitted for NSTEMI 07/16/24-07/20/24. Resting echo revealed preserved EF. She underwent cardiac cath which revealed severe proximal RCA stenosis with thrombosis. She underwent PCI with overlapping MERCEDES x 2 to RCA. She was discharged on DAPT with ASA and Brilinta. She was not placed on BB therapy due to relative bradycardia and she was not a candidate for MINNA due to history of angioedema. Patient had presented to the ED via EMS on 07/26/24 and was loaded with 324mg ASA upon arrival. EKG in the ED did not reveal any overtly acute ischemic changes. Initial trop was 42.2 on admission. Cardiology was consulted. Her trops have remained flat. Echo performed 07/27/24 revealed the following: LVEF = 65-70%, normal LV wall motion, trivial circumferential pericardial effusion with moderate organization but no signs of cardiac tamponade. Cardiology determined that this findings was suggestive of post-myocardial infarction pericardial effusion. She was started on colchicine 0.6mg daily on 07/27/24 per cardiology's recommendation. Her rosuvastatin was also decreased from 20mg to 10mg daily. Recommendation from cardiology is to continue the colchicine for a minimum of 4 to 6 weeks as tolerated. She is to have a repeat echocardiogram in the next 1 to 2 weeks for surveillance. Will continue DAPT at time of discharge. Appointment with [facility] Cardiology yet to be arranged at time of discharge. Patient made aware that she will be contacted soon to schedule this appointment. HLD: Rosuvastatin decreased from 20mg to 10mg at time of discharge given concurrent colchicine therapy. Patient made aware. Pulmonary Nodule - Incidental Finding: A 3mm RLL pulmonary nodule was visualized on chest CTA, may be inflammatory. A 3-4 month follow-up chest CT is recommended for reassessment. This will be arranged by her PCP. Other Chronic Medical Conditions: HTN, bronchial asthma, hypothyroidism, an xiety/depression, GERD --> Can continue home medications as previously prescribed at time of discharge. PCP: Alycia Terry DO - She has a PCP follow-up appointment scheduled with Dr. Lauryn Ramos on 08/02/24 @ 2:40PM. Disposition: Patient is being discharged home in stable condition. [facility] services is set to see patient follow discharge. Patient seen in collaboration with Dr. Jacobs. Please see addendum. I spent a total of 60 minutes coordinating, documenting, and providing care for this patient excluding time spent in the performance of separately billed services. This included personally reviewing all current laboratories and imaging studies, medical reconciliation, outpatient chart review and discussion with specialists. This chart was completed in part utilizing Speech Voice Recognition Software. Grammatical errors, random word insertions, pronoun errors, and incomplete sentences are an occasional consequence of this system due to software limitations, ambient noise, and hardware issues. Any formal questions or concerns about the content, text, or information contained within the body of this dictation should be directly addressed to the provider for clarification. Home Health Attestation I certify that this patient is under my care and that I, or a physicians office support assistant working with me, had a face to-face encounter that meets the home health [id number] encounter requirements with this patient. The encounter with the patient was in whole, or in part, for the following medical condition, which is the primary reason for home health care (list medical condition): chest pain I certify that, based on my findings, the following services are medically necessary home health services: My clinical findings support the need for the above services because: Skilled Nsg Assessment Skilled Nsg Assess Pt Illness, Disease and Sx Monitoring Further, I certify that my clinical findings support that this patient is homebound (i.e. absences from home require considerable and taxing effort and are for medical reasons or hindu services or infrequently or of short duration when for other reasons) because: Supportive Aid - Walker Transportation Assistance/Unable to Leave Home Unassisted Certification for Home Health Services: Based on the above findings, I certify that this patient is confined to the home and needs intermittent residential care, physical therapy and/or speech therapy or continues to need occupational therapy. The patient is under my care, and I have initiated the establishment of the plan of care. This patient will be followed by a physician who will periodically review the plan of care. Total Time Total Time Spent Total Time Spent (In Minutes): 60 Discharge Plan Discharge Items Patient Disposition: Home - Self-Care Reason For Visit: CHEST PAIN Discharge Diagnosis: Chest Pain [ACS Ruled-Out] Post-Myocardial Infarction Pericardial Effusion Activity: Resume your previous activity Non-emergency contact: Primary Care Provider Call non-emergency contact if: you have any medication questions and your symptoms worsen Follow-up/Referrals: Kopinski,Masoud O, DO [Restaurant General Manager] - (The Cardiology office will contact you for a follow up appointment. Please contact them if you do not receive a call.) Lauryn Ramos MD [Outside Practitioners] - (Date & Time: 08/02/24 @ 2:40PM Provider: Lauryn Ramos MD) Diet: Heart Healthy Addtl Attending Provider Instructions: Olivia, You were admitted to the hospital for further evaluation after presenting to the emergency department with chest pain and pressure. You were seen and evaluated by Dr. Masters, one of our [facility] Cardiologists, during your hospitalization. You underwent an echocardiogram, also known as an ultrasound of your heart, which revealed a post-myocardial infarction pericardial effusion. You were started on COLCHICINE by cardiology, which is an anti-inflammatory medication. You will continue taking COLCHICINE for the next 4 to 6 WEEKS. A prescription has been sent to your pharmacy. Please take this medication as prescribed! You will need a repeat echocardiogram in 1-2 weeks to monitor your pericardial effusion. This will be arranged by [facility] Cardiology. You will be contacted to schedule a follow-up appointment with Dr. Masters soon. If you do not receive a call regarding this, please call [phone] to make sure a follow-up appointment is established with Dr. Masters. You are already scheduled to see Dr. Lauryn Ramos with [facility] at [facility] on 08/02/24 at 2:40PM. Please attend this follow-up appointment as scheduled! You can continue to take all of your other home medications as previously prescribed. A 3mm right lower lobe pulmonary nodule was visualized on your admitting chest CTA, which may be inflammatory. A 3-4 month follow-up chest CT is recommended for reassessment. This can be arranged at your hospital discharge follow-up appointment with Dr. Ramos on 08/02/24! You are being discharged home with [facility]. MEDICATION CHANGES: * Your ROSUVASTATIN dose was DECREASED from 20mg DAILY to 10mg DAILY. Please continue to take this medication as prescribed. * You are discharged on COLCHICINE 0.6mg DAILY to take for the next 4-6 weeks. A prescription has been sent to your pharmacy. Please continue to take this medication as prescribed for the next 6 weeks unless otherwise advised by cardiology. SEEK MEDICAL ATTENTION IF YOU HAVE: * temperature above 101F * chest pain or trouble breathing * abdominal pain, nausea, vomiting * diarrhea, dark stools or bloody stools * any unanswered questions or concerns Call 911 if symptoms are severe. Please take good care of yourself. It has been a pleasure taking care of you. If you have any questions regarding your recent hospitalization please contact [facility] and request Sarai Eastmanist @ [phone]. Pending Studies at Discharge: No Stand-Alone Forms: My [facility], Smoking Cessation Medications and DC Order Prescriptions: New colchicine [Colcrys] 0.6 mg Tablet 0.6 mg PO QAM 42 Days Qty: 42 0RF rosuvastatin 10 mg Tablet 10 mg PO QAM Qty: 42 0RF Continued albuterol sulfate 90 mcg/actuation HFA aerosol inhaler 2 puffs inhalation Q4H PRN (Reason: cough,sob,wheezing) Qty: 1 cyanocobalamin (vitamin B-12) 1,000 mcg tablet 1,000 mcg PO QAM Qty: 90 levothyroxine 75 mcg tablet 75 mcg PO QAM cholecalciferol (vitamin D3) [Vitamin D3] 25 mcg (1,000 unit) Tablet,Chewable 25 mcg PO QAM Qvar RediHaler 80 mcg/actuation HFA aerosol breath activated 2 inh INHALATION BID amlodipine 2.5 mg Tablet 2.5 mg PO QAM diphenhydramine HCl [Benadryl] 25 mg Capsule 25 mg PO TID PRN (Reason: Allergic Reaction) omeprazole 20 mg Tablet,Delayed Release (Dr/Ec) 20 mg PO QAM epinephrine 0.1 mg/0.1 mL Auto-Injector 0.1 mg IM UD PRN (Reason: Anaphylaxis) sertraline 100 mg tablet 50 mg PO BID Rx Instructions: pt is using the rest of her 50mg tab prescription so she's splitting the dose 50mg by mouth twice daily; prescribed 100mg daily aspirin 81 mg Tablet,Delayed Release (Dr/Ec) 81 mg PO QAM Qty: 60 0RF Brilinta 90 mg Tablet 90 mg PO BID Qty: 120 0RF Discontinued rosuvastatin 20 mg tablet 20 mg PO QAM Discharge Orders: Discharge Order (Routine); Ordered 07/28/24 Ordered By: Mona Tejada/Other Patient Handouts: Understanding Pericardial Effusion Admission Data Admit Date/Time: 07/26/24 20:50 Attending Provider: Brooke Jacobs Admit Provider: Francis Cesar Primary Care Provider: Alycia Terry Other Providers: Francis Cesar; Mary Jane Claros; Wilber Villalba; Sunday Ortiz; Masoud Masters; John Recinos; Kunal Hardy; Mary Anne James; Kasandra Cox; Chrissy Reddy; Mary Jane Laurent; Darrick Hamilton; Rc Tom; Emma Cuevas; Kaila Bahena; Reva Patel; Sofiya Frey; Varun Rowley; Adelina Cisneros; [facility] Supervising Physician Co-Signing Physician Notes I have seen and discussed the case with the collaborating advanced practitioner. I agree with the above H&P. I have reviewed and confirmed the patients medical history, the findings on physical examination, and the patients diagnosis and treatment plan with Ryland LEMON and agree with the information documented. Evaluated prior to D/C. Patient reports feeling well overall and denies any acute concerns, including no further chest pain. Reviewed Cardiology recommendations for post-cath pericardial effusion: plan to send with 6 weeks of colchicine and dose reduced statin. Plan for op cardiology follow up with op ECHO in 1-2 weeks. I spent a total of 15 minutes coordinating, documenting, and providing care for this patient excluding time spent in the performance of separately billed services. All of the aforementioned completed outside of collaborating with the assigned advanced practitioner for a full treatment plan. I have reviewed the advanced practitioner's documentation, and I agree with, and take responsibility for the plan of care
[2024-07-28 17:22] VITALS: PULSE 65
== END 2024-07-28 18:32 | disposition home or self-care (01) ==
LOC: ED 15:49 → 4W 15:49 → SUATTDRO 20:50 → 4W 22:17